=== PATIENT | male | born 1940 | race Caucasian/White ===

== ENCOUNTER 2016-05-19 08:02 | Observation (INO) ==
[2016-05-19] MEDS ORDERED: ONDANSETRON 4 MG/2 ML VIAL IV ONE (09:18)
[2016-05-19 10:34] LABS: Basophils # (Auto) 0 K/mcL (0.0-0.3); Basophils % (Auto) 0.2 % (0.0-2.0); Eosinophils # (Auto) 0 K/mcL (0.0-0.7); Eosinophils % (Auto) 0.8 % (0.0-7.0); Granulocytes % (Auto) 75.6 % (38.0-78.0); Lymphocytes # (Auto) 0.9 K/mcL (1.5-4.8); Lymphocytes % (Auto) 16.8 % (15.5-49.0); Mean Cell Volume 99.4 fL (80.0-100.0); Mean Corpuscular HGB Conc 32.7 g/dL (31.0-36.0); Mean Corpuscular Hemoglobin 32.5 pg (26.0-34.0); Monocytes # (Auto) 0.4 K/mcL (0.1-0.9); Monocytes % (Auto) 6.6 % (1.0-9.0); Platelet Count 230 K/mcL (140-440); RBC 3.97 M/mcL (4.50-5.90); Red Cell Distribution Width 14.7 % (11.5-14.5)
--- NOTE | 2016-05-19 10:35 | XRay Report ---
CLINICAL INFORMATION: Fever TECHNIQUE: Upright AP chest x-ray COMPARISON: 10/22/2014, 07/10/2012, 08/10/2011 FINDINGS: Probable COPD. Mild cardiomegaly. This is unchanged. Probable pulmonary congestion. No pulmonary edema. No focal pulmonary parenchymal infiltrate or mass. Overall appearance is essentially unchanged since 10/22/2014 IMPRESSION: 1. Probable COPD 2. Mild cardiomegaly and probable pulmonary congestion. No pulmonary edema. No focal parenchymal infiltrate Interpreted and Authenticated by: Hilton Mayen 05/19/16
--- NOTE | 2016-05-19 10:38 | XRay Report ---
CLINICAL INFORMATION: Abdominal pain. Fever. TECHNIQUE: AP supine and left lateral decubitus abdomen COMPARISON: Previous CT scan dated 12/14/2009 FINDINGS: Gas and fecal material throughout the colon. There is small bowel gas but no significant dilatation. No air-fluid levels. No pneumoperitoneum. No biliary or portal venous gas There are rounded calcifications in the left upper abdominal quadrant. These may be vascular. Appearance is somewhat atypical for renal calculi. IMPRESSION: Negative bowel gas pattern. No evidence for mechanical small bowel obstruction. Interpreted and Authenticated by: Hilton Mayen 05/19/16
[2016-05-19 10:53] LABS: Magnesium 1.8 mg/dL (1.6-2.5)
[2016-05-19 11:10] LABS: Appearance,Urine CLEAR; Bacteria,Urine 0 /hpf (0); Bilirubin,Urine NEG (NEG); Color,Urine YELLOW; Glucose,Urine (UA) NEGATIVE (NEG); Leukocyte Esterase,Urine NEG /uL (NEG); Nitrate,Urine NEG (NEG); Protein,Urine NEG (NEG); Specific Gravity,Urine 1.013 (1.000-1.035); Urine Blood NEG mg/dL (<0.03); Urine RBC 3 /hpf (0-1); Urine Squamous Epithelial Cell 0 /hpf (0-4); Urine WBC 1 /hpf (0-4)
--- NOTE | 2016-05-19 11:27 | Emergency Department Note ---
Weakness HPI - General Chief complaint: Weakness Stated complaint: WEAKNESS Time Seen by Provider: 05/19/16 08:25 Source: patient Mode of arrival: EMS Limitations: no limitations - History of Present Illness HPI Narrative: 76-year-old male was seen yesterday by Dr. Caba for nausea vomiting and sent home with Madelyn. He returns today with a temperature 101 by EMS. He reports he did not get the flu shot because he is allergic to it. Denies shortness of breath. He also reports significant weakness in his legs unclear cause such that he is not able to bear weight while normally he can walk. he can move his legs he just says they won't support him - Related Data Home Medications Medication Instructions Recorded Confirmed acetaminophen 325 mg tablet 650 mg PO HS tab 09/24/14 05/19/16 Aspirin [Pepe Chewable Aspirin] 81 mg PO QDAY 10/20/14 05/19/16 pantoprazole 40 mg tablet,delayed 40 mg PO QAM 01/28/15 05/19/16 release docusate sodium 100 mg capsule 100 mg PO Q48 cap 01/19/16 05/19/16 ferrous sulfate 325 mg (65 mg 325 mg PO QDAY 01/19/16 05/19/16 iron) tablet multivitamin tablet 1 tab-cap PO QDAY 01/19/16 05/19/16 Acetaminophen [Tylenol] 1 - 2 tab PO Q6HP PRN 05/19/16 05/19/16 guaiFENesin/DEXTROMETHORPHAN 7.5 ml PO Q6H PRN 05/19/16 05/19/16 [Guaifenesin-Dm Solution] Previous Rx's Medication Instructions Recorded potassium chloride ER 10 mEq 10 meq PO QDAY #30 cap 11/22/15 capsule,extended release clopidogrel 75 mg tablet 75 mg PO QDAY #90 tab 01/24/16 furosemide 20 mg tablet 10 mg PO QDAY #30 tab 01/26/16 losartan 100 mg tablet 100 mg PO QDAY #90 tab 01/28/16 diphenhydramine 25 mg capsule 50 mg PO QHS #30 cap 02/11/16 prednisone 5 mg tablet 10 mg PO BID 30 Days 02/28/16 hydralazine 10 mg tablet 20 mg PO BID 30 Days 03/17/16 trazodone 50 mg tablet 50 mg PO QHS #30 tab 03/17/16 atenolol 50 mg tablet 50 mg PO BID 30 Days 04/12/16 lorazepam 1 mg tablet 1 mg PO QHS 30 Days 04/12/16 tramadol 50 mg tablet 25 mg PO Q6H PRN #60 tab 04/18/16 Ondansetron HCl [Zofran ODT] 4 mg SL Q4-6HP PRN #14 tablet 05/18/16 Allergies Allergy/AdvReac Type Severity Reaction Status Date / Time Penicillins Allergy Intermediate Hives Verified 05/19/16 15:11 Sulfa (Sulfonamide Allergy Intermediate Rash Verified 05/19/16 15:11 Antibiotics) codeine Allergy Unknown Unknown Verified 05/19/16 15:11 hydrocodone Allergy Unknown Unknown Verified 05/19/16 15:11 ibuprofen Allergy Unknown Unknown Verified 05/19/16 15:11 Review of Systems All systems ED: reviewed and negative except as stated. Past Medical History - Past Medical History Attestation: Yes: The following information was validated with the patient. Medical history: Reports: cancer (bladder), CVA, GERD, hypertension, other ( recurrent UTIs, prostate issues, incontinence/retention. hyponatremia. Peripheral vascular disease) Surgical history ED: Reports: vasectomy, other (TURP, bladder) - Social History smoking status: Never smoker Alcohol use: Reports: None Drug use: Reports: none Physical Exam Normocephalic atraumatic. Significant gross hearing loss. Conjunctiva clear sclerae anicteric. No nasal discharge or congestion. Oropharynx is pink and moist. Neck is supple without lymphadenopathy or thyromegaly. Heart is regular rate and rhythm no murmurs appreciated. Lungs are clear to auscultation bilaterally. No respiratory distress. Abdomen is soft nontender nondistended. Bilateral backs of hands with purpura. His left willard area has a small wound it's bandaged. This is chronic. +1 edema to the right ankle, again chronic. +2 radial pulse. - General Limitations: no limitations Course Vital Signs Temperature 99.3 F 05/19/16 08:03 Pulse Rate 89 05/19/16 08:03 Respiratory Rate 18 05/19/16 08:03 Blood Pressure 127/76 05/19/16 08:03 Pulse Oximetry (%) 95 05/19/16 08:03 Temperature 97.4 F L 05/19/16 16:03 Pulse Rate 86 05/19/16 16:03 Respiratory Rate 20 05/19/16 16:03 Blood Pressure 157/94 05/19/16 16:03 Pulse Oximetry (%) 92 05/19/16 14:26 Weakness - Lab Data Lab results reviewed: Yes I reviewed the patient's lab results. Result diagrams: 05/19/16 09:27 Lab Results 05/19/16 05/19/16 05/19/16 Range/Units 09:27 09:27 10:11 WBC 5.6 (4.5-11.0) K/mcL RBC 3.97 L (4.50-5.90) M/mcL Hgb 12.9 L (13.5-16.5) g/dL Hct 39.4 L (41.0-55.0) % POC Hct 42.0 (41.0-55.0) % MCV 99.4 (80.0-100.0) fL MCH 32.5 (26.0-34.0) pg MCHC 32.7 (31.0-36.0) g/dL RDW 14.7 H (11.5-14.5) % Plt Count 230 (140-440) K/mcL MPV 7.4 (7.4-10.4) fL Gran % 75.6 (38.0-78.0) % Lymph % (Auto) 16.8 (15.5-49.0) % [place] % (Auto) 6.6 (1.0-9.0) % Eos % (Auto) 0.8 (0.0-7.0) % Baso % (Auto) 0.2 (0.0-2.0) % Gran # 4.3 (1.8-8.0) K/mcL Lymph # 0.9 L (1.5-4.8) K/mcL [place] # 0.4 (0.1-0.9) K/mcL Eos # 0 (0.0-0.7) K/mcL Baso # 0 (0.0-0.3) K/mcL ESR (0-15) mm/hr VBG Lactic Acid 0.5 (0.5-2.2) mmol/L POC Sodium 132 L (133-145) mmol/L POC Potassium 3.6 (3.3-5.1) mmol/L POC Chloride 91 L (96-108) mmol/L POC Total CO2 28 (22-30) mmol/L POC BUN 25 H (8-23) mg/dl POC Creatinine 1.2 (0.7-1.2) mg/dl POC Glucose 72 (70-105) mg/dL POC WB Ioniz Calcium 1.07 L (1.16-1.32) mmol/L Magnesium 1.8 (1.6-2.5) mg/dL C-Reactive Protein (0.0-0.8) mg/dl NT-Pro-B Natriuret Pep 3791.0 H (0-450) pg/ml Urine Color Urine Appearance Urine pH (5.0-9.0) Ur Specific [place] (1.000-1.035) Urine Protein (NEG) mg/dL Urine Glucose (UA) (NEG) mg/dL Urine Ketones (NEG) mg/dL Urine Occult Blood (<0.03) mg/dL Urine Nitrate (NEG) Urine Bilirubin (NEG) mg/dL Urine Urobilinogen (NEG) mg/dL Ur Leukocyte Esterase (NEG) /uL Urine RBC (0-1) /hpf Urine WBC (0-4) /hpf Ur Squamous Epith Cells (0-4) /hpf Urine Bacteria (0) /hpf Ur Culture Indicated? Ur Strep pneumoniae Ag (NEGATIVE) 05/19/16 05/19/16 05/19/16 Range/Units 10:11 10:11 10:11 WBC (4.5-11.0) K/mcL RBC (4.50-5.90) M/mcL Hgb (13.5-16.5) g/dL Hct (41.0-55.0) % POC Hct (41.0-55.0) % MCV (80.0-100.0) fL MCH (26.0-34.0) pg MCHC (31.0-36.0) g/dL RDW (11.5-14.5) % Plt Count (140-440) K/mcL MPV (7.4-10.4) fL Gran % (38.0-78.0) % Lymph % (Auto) (15.5-49.0) % [place] % (Auto) (1.0-9.0) % Eos % (Auto) (0.0-7.0) % Baso % (Auto) (0.0-2.0) % Gran # (1.8-8.0) K/mcL Lymph # (1.5-4.8) K/mcL [place] # (0.1-0.9) K/mcL Eos # (0.0-0.7) K/mcL Baso # (0.0-0.3) K/mcL ESR 13 (0-15) mm/hr VBG Lactic Acid (0.5-2.2) mmol/L POC Sodium (133-145) mmol/L POC Potassium (3.3-5.1) mmol/L POC Chloride (96-108) mmol/L POC Total CO2 (22-30) mmol/L POC BUN (8-23) mg/dl POC Creatinine (0.7-1.2) mg/dl POC Glucose (70-105) mg/dL POC WB Ioniz Calcium (1.16-1.32) mmol/L Magnesium (1.6-2.5) mg/dL C-Reactive Protein 7.8 H (0.0-0.8) mg/dl NT-Pro-B Natriuret Pep (0-450) pg/ml Urine Color Urine Appearance Urine pH (5.0-9.0) Ur Specific [place] (1.000-1.035) Urine Protein (NEG) mg/dL Urine Glucose (UA) (NEG) mg/dL Urine Ketones (NEG) mg/dL Urine Occult Blood (<0.03) mg/dL Urine Nitrate (NEG) Urine Bilirubin (NEG) mg/dL Urine Urobilinogen (NEG) mg/dL Ur Leukocyte Esterase (NEG) /uL Urine RBC (0-1) /hpf Urine WBC (0-4) /hpf Ur Squamous Epith Cells (0-4) /hpf Urine Bacteria (0) /hpf Ur Culture Indicated? Ur Strep pneumoniae Ag Negative (NEGATIVE) 05/19/16 Range/Units 10:27 WBC (4.5-11.0) K/mcL RBC (4.50-5.90) M/mcL Hgb (13.5-16.5) g/dL Hct (41.0-55.0) % POC Hct (41.0-55.0) % MCV (80.0-100.0) fL MCH (26.0-34.0) pg MCHC (31.0-36.0) g/dL RDW (11.5-14.5) % Plt Count (140-440) K/mcL MPV (7.4-10.4) fL Gran % (38.0-78.0) % Lymph % (Auto) (15.5-49.0) % [place] % (Auto) (1.0-9.0) % Eos % (Auto) (0.0-7.0) % Baso % (Auto) (0.0-2.0) % Gran # (1.8-8.0) K/mcL Lymph # (1.5-4.8) K/mcL [place] # (0.1-0.9) K/mcL Eos # (0.0-0.7) K/mcL Baso # (0.0-0.3) K/mcL ESR (0-15) mm/hr VBG Lactic Acid (0.5-2.2) mmol/L POC Sodium (133-145) mmol/L POC Potassium (3.3-5.1) mmol/L POC Chloride (96-108) mmol/L POC Total CO2 (22-30) mmol/L POC BUN (8-23) mg/dl POC Creatinine (0.7-1.2) mg/dl POC Glucose (70-105) mg/dL POC WB Ioniz Calcium (1.16-1.32) mmol/L Magnesium (1.6-2.5) mg/dL C-Reactive Protein (0.0-0.8) mg/dl NT-Pro-B Natriuret Pep (0-450) pg/ml Urine Color Yellow Urine Appearance Clear Urine pH 6.0 (5.0-9.0) Ur Specific [place] 1.013 (1.000-1.035) Urine Protein Neg (NEG) mg/dL Urine Glucose (UA) Negative (NEG) mg/dL Urine Ketones Neg (NEG) mg/dL Urine Occult Blood Neg (<0.03) mg/dL Urine Nitrate Neg (NEG) Urine Bilirubin Neg (NEG) mg/dL Urine Urobilinogen 2.0 A (NEG) mg/dL Ur Leukocyte Esterase Neg (NEG) /uL Urine RBC 3 H (0-1) /hpf Urine WBC 1 (0-4) /hpf Ur Squamous Epith Cells 0 (0-4) /hpf Urine Bacteria 0 (0) /hpf Ur Culture Indicated? No Ur Strep pneumoniae Ag (NEGATIVE) negative influenza swab - Radiology Data Radiology results reviewed: Yes I reviewed the patient's radiology results. Chest x-ray shows no change when compared to 10/22/2014- no infiltrate, mild pulmonary vascular congestion abdominal x-ray shows no free air in the diaphragm nor mechanical bowel obstruction - EKG Data EKG attestation: Yes I reviewed and interpreted this EKG. EKG results narrative: EKG shows normal sinus rhythm with a rate of 88 with PACs. He does have increased ST depression versus repolarization in the anterior lateral leads V4 through 6. Compared this to his last EKG on 10/17/2014 Disposition Clinical Impression: Fever, unknown origin, Weakness Summary: Patient has fever of unknown source and significant lower extremity weakness. Discussed case with Dr. Velasquez who agreed to accept the patient for further workup and treatment Disposition: Xfer As Inpt ([facility]) Condition: Fair
[2016-05-19] MEDS ORDERED: FUROSEMIDE 20 MG/2 ML VIAL IV ONE (12:36)
[2016-05-19] MEDS ORDERED: ACETAMINOPHEN 325 MG TABLET PO PRN ×2 (14:19→18:10)
[2016-05-19] MEDS ORDERED: guaiFENesin/CODEINE 10 ML UDC PO PRN (14:19)
[2016-05-19] MEDS ORDERED: ONDANSETRON 4 MG/2 ML VIAL IV PRN (14:19)
[2016-05-19] MEDS ORDERED: cefTRIAXone 2 GM in DEXTROSE 5% IN WATER 50 ML IV SCH (14:19)
[2016-05-19] MEDS ORDERED: VANCOMYCIN PER PHARMACY IV ONE (14:53)
[2016-05-19] MEDS ORDERED: LEVOFLOXACIN 750 MG/150 ML BAG IV SCH (15:00)
--- NOTE | 2016-05-19 15:35 | History and Physical Report ---
DATE OF ADMISSION: 05/19/2016 PRIMARY CARE PHYSICIAN: Flako Mcrae PA-C. REASON FOR ADMISSION: Weakness, fever, bilateral lower extremity numbness. HISTORY OF CHIEF COMPLAINT: The patient is a 76-year-old with known history of coronary artery disease, severe peripheral vascular disease, along with history of CVA and bladder cancer who comes to [facility] Emergency Room with progressive onset of weakness and inability to function. The patient lives at [facility]. He was in his baseline state of health until roughly a week ago following which he has noticed gradual lower extremity weakness, inability to walk and over the last couple of days is barely able to lift his leg. He also had a fever of 101 when EMS was called and subsequently brought him to [facility] ER. In the ER recorded highest temperature was 99.3. Initial workup was negative with a white count of 5.6. However, in light of lower extremity weakness, Hospitalist Service was consulted. At the time of examination, the patient is alert, was able to answer some of the questions. He is very hard of hearing. He is intermittently confused, but he denies chest pain, lightheadedness, or photophobia. He further denies joint pain, rash, dysuria, diarrhea, bloody stool, weight loss or change in stool caliber, unilateral weakness, or incontinence. REVIEW OF SYSTEMS: Ten-point review of system was performed and negative except the ones discussed above. PAST MEDICAL HISTORY: 1. History of coronary artery disease. 2. Hypertension. 3. Chronic venous ulceration and stasis changes. 4. Anxiety. 5. Gout. 6. Peripheral vascular disease. 7. History of bladder cancer managed by Urology. 8. GERD. 9. History of migraine. 10. CVA. 11. Reactive airway disease. CURRENT MEDICATIONS: 1. Tramadol 50 mg. 2. Lorazepam 1 mg. 3. Atenolol 50 mg b.i.d. 4. Trazodone 50 mg at bedtime. 5. Hydralazine 20 mg b.i.d. 6. Prednisone 10 mg b.i.d. 7. Diphenhydramine 50 mg at bedtime. 8. Losartan 100 mg daily. 9. Furosemide 10 mg. 10. Plavix 75 mg. 11. Multivitamin one tab daily. 12. Protonix 40 mg. 13. Aspirin 81 mg. ALLERGIES: 1. CODEINE. 2. HYDROCODONE. 3. IBUPROFEN. 4. PENICILLIN. 5. SULFA. FAMILY HISTORY: Significant for history of father with coronary artery disease and mother with hypertension. SOCIAL HISTORY: The patient is . He currently lives at [facility]. He used to drink a fair amount of alcohol in the past but quit. He carries a [id number] history of smoking, quit a while ago. PHYSICAL EXAMINATION: GENERAL: The patient is minimally anxious, hard of hearing. BMI 20, height 5 feet 11 inches. VITAL SIGNS: Blood pressure is 148/79, respiration rate 20, temperature 99.3, pulse 91, sats 92% on room air. HEENT: Pupils symmetric. Oral cavity is dry. No ear or nose discharge. Head is normocephalic and atraumatic. NECK: No lymphadenopathy. CHEST: S1, S2, regular rhythm. Ejection systolic murmur grade 1. Diminished breath sounds at bases. ABDOMEN: Scaphoid. LOWER EXTREMITIES: Bilateral stasis changes with excoriated skin lesions along with left dorsal skin ulceration. Minimal lymphedema, right lower extremity. No cyanosis, no clubbing. Neuropathic changes. PSYCH: No anxiety, hard of hearing, occasionally confused. NEURO: Unable to lift both lower extremities with grade 3 strength. No diplopia. Upper extremity strength symmetric. Reflexes are absent left knee, 2+ brisk right knee. LABS AND IMAGING: White count 5.6, hemoglobin 12.9, platelets 230, lactic acid 0.5. Sodium 132, potassium 3.6, creatinine 1.2, and BUN 25. BNP 3791. X-ray chest: Pulmonary congestion, mild CHF. ASSESSMENT AND PLAN: A 76-year-old with a history of chronic peripheral vascular disease, stasis dermatitis who is admitted with fever, lower extremity weakness, minimal back pain along with mild CHF. 1. Mild CHF. Echocardiogram. Start diuresis. Continue telemonitoring. 2. Fever, unclear etiology. Drew cultures pending. Lower back imaging to rule out infectious etiology along with vertebral/epidural abscess which may be leading to lower extremity weakness. Start empiric antibiotics including vancomycin/Levaquin in light of PENICILLIN allergy. Await ESR and inflammatory markers. 3. Mental status change, likely secondary to fever. Continue close monitoring. Avoid sedatives, hypnotics. 4. Prior medical issues, including: a. History of coronary artery disease/PVD. Continue aspirin, Plavix. b. Hypertension. Continue losartan/atenolol. c. GERD. Continue PPI. PLAN FOR TODAY: 1. Admit as inpatient. 2. Diuresis. 3. Echocardiogram. 4. Lower back imaging. 5. Drew cultures. 6. Antibiotic coverage. AA:[email or web address] Job ID: [id number] Doc ID: [id number] Hakan Mcrae PA-C
[2016-05-19 15:39] LABS: Strep Pneumoniae Antigen - UR NEGATIVE (NEGATIVE)
[2016-05-19] MEDS: 0.9 % SODIUM CHLORIDE 10 ML SYRINGE IV SCH ×2 (15:39→22:05)
[2016-05-19] MEDS: IPRATROPIUM/ALBUTEROL 3 ML AMPUL.NEB NEB SCH ×3 (17:44→22:28)
--- NOTE | 2016-05-19 18:06 | Magnetic Resonance Report ---
CLINICAL INFORMATION: Paraparesis TECHNIQUE: Sagittal and axial images through the lumbar spine. Scanning performed both before and after intravenous injection of 7.5 mL gadolinium COMPARISON: Previous CT scan dated 10/17/2014 FINDINGS: Compression deformity of the L1 vertebral body. There is wedging with approximately 70% loss of height anteriorly. No significant bone marrow edema. No pathologic marrow replacement. Appearance is consistent with a benign, chronic compression deformity. No significant retropulsion. No spinal canal stenosis. Other lumbar vertebral body heights are maintained. Normal marrow signal. No pathologic bone marrow replacement. Mild decreased intradiscal signal at L1-L2 and L2-L3. No focal herniation. No spinal canal stenosis. Mild degenerative disc disease at L3-L4. There is decreased intradiscal signal. There is a bulging disc without well-defined focal herniation. There is facet arthropathy with mild osseous and ligamentous hypertrophy. There is moderate spinal canal stenosis. There is bilateral L3 foraminal stenosis. Degenerative disc disease at L4-L5. There is a midline and left paramidline central protrusion with mild caudal migration of disc material. Disc material contacts the left L5 nerve root within the lateral recess. No significant spinal canal or foraminal stenosis. Degenerative disc disease at L5-S1. There is a broad-based shallow protrusion extending from the central disc to the left L5 foramen. This contacts the exiting left L5 nerve root and dorsal root ganglion. No epidural abnormalities. No enhancing lesions. No epidural hematoma or abscess. Conus medullaris and cauda equina are normal. Sacrum is negative. No fracture. No paraspinal soft tissue abnormality. IMPRESSION: 1. Chronic benign compression deformity of the L1 vertebral body. 2. Mild degenerative disc disease at L3-L4. Bulging disc and moderate spinal canal stenosis. 3. Degenerative disc disease at L4-L5. Midline and left paramidline central disc protrusion as above. 4. Broad-based shallow left-sided protrusion at L5-S1 5. Conus medullaris and cauda equina are normal. No epidural abnormalities. Interpreted and Authenticated by: Hilton Mayen 05/19/16
[2016-05-19] MEDS ORDERED: traMADol 50 MG TABLET PO PRN (18:10)
[2016-05-19] MEDS ORDERED: ONDANSETRON ODT 4 MG TABLET SL PRN (18:10)
[2016-05-19] MEDS: VANCOMYCIN 1,000 MG in 0.9 % SODIUM CHLORIDE 250 ML IV SCH (19:58)
[2016-05-19 20:32] LABS: Basophils # (Auto) 0 K/mcL (0.0-0.3); Basophils % (Auto) 0.5 % (0.0-2.0); Eosinophils # (Auto) 0 K/mcL (0.0-0.7); Eosinophils % (Auto) 0.6 % (0.0-7.0); Granulocytes % (Auto) 83.8 % (38.0-78.0); Lymphocytes # (Auto) 0.4 K/mcL (1.5-4.8); Lymphocytes % (Auto) 6.5 % (15.5-49.0); Mean Cell Volume 98.3 fL (80.0-100.0); Mean Corpuscular HGB Conc 33.9 g/dL (31.0-36.0); Mean Corpuscular Hemoglobin 33.3 pg (26.0-34.0); Monocytes # (Auto) 0.5 K/mcL (0.1-0.9); Monocytes % (Auto) 8.6 % (1.0-9.0); Platelet Count 213 K/mcL (140-440); RBC 3.73 M/mcL (4.50-5.90); Red Cell Distribution Width 13.8 % (11.5-14.5)
[2016-05-19] MEDS: hydrALAZINE 10 MG TABLET PO SCH (20:38)
[2016-05-19] MEDS: diphenhydrAMINE 25 MG CAPSULE PO SCH (20:39)
[2016-05-19] MEDS: SENNOSIDES/DOCUSATE SODIUM 1 TAB TABLET PO SCH (20:39)
[2016-05-19] MEDS: ATENOLOL 50 MG TABLET PO SCH (20:39)
[2016-05-19] MEDS: HEPARIN 5,000 UNIT/ML VIAL SQ SCH (20:40)
[2016-05-19] MEDS: DOCUSATE SODIUM 100 MG CAPSULE PO SCH (20:40)
[2016-05-19] MEDS: traZODone HCL 50 MG TABLET PO SCH (20:40)
[2016-05-19] MEDS: LORazepam 1 MG TABLET PO SCH (20:40)
[2016-05-19 20:52] LABS: ALT/SGPT 14 U/l (0-40); Albumin 2.9 gm/dL (3.2-5.2); Albumin/Globulin Ratio 1.7 (1.0-2.3); Alkaline Phosphatase 65 U/L (39-117); Bilirubin,Direct 0.2 mg/dL (0.0-0.3); Blood Urea Nitrogen 22 mg/dl (8-23); Gamma Glutamyl Transpeptidase 27 U/L (8-61); Magnesium 1.5 mg/dL (1.6-2.5)
[2016-05-19] MEDS ORDERED: traZODone HCL 50 MG TABLET PO PRN (21:00)
[2016-05-20] MEDS: IPRATROPIUM/ALBUTEROL 3 ML AMPUL.NEB NEB SCH ×6 (02:51→22:45)
[2016-05-20] MEDS: 0.9 % SODIUM CHLORIDE 10 ML SYRINGE IV SCH ×3 (05:43→22:01)
[2016-05-20 06:01] LABS: ALT/SGPT 14 U/l (0-40); Albumin 2.7 gm/dL (3.2-5.2); Albumin/Globulin Ratio 1.4 (1.0-2.3); Alkaline Phosphatase 61 U/L (39-117); Bilirubin,Direct < 0.2 mg/dL (0.0-0.3); Blood Urea Nitrogen 21 mg/dl (8-23); Gamma Glutamyl Transpeptidase 27 U/L (8-61); Magnesium 1.6 mg/dL (1.6-2.5); Phosphorous 2.9 mg/dL (2.7-4.5); Uric Acid 6.1 mg/dL (2.5-8.0)
[2016-05-20 06:26] LABS: Mean Corpuscular HGB Conc 34.6 g/dL (31.0-36.0); Mean Corpuscular Hemoglobin 33.9 pg (26.0-34.0); Platelet Count 197 K/mcL (140-440); RBC 3.39 M/mcL (4.50-5.90); Red Cell Distribution Width 13.9 % (11.5-14.5)
[2016-05-20] MEDS: PANTOPRAZOLE 40 MG TABLET PO SCH (06:58)
[2016-05-20] MEDS: CALCIUM CARBONATE 500 MG TAB.CHEW CHEWED SCH ×2 (07:46→12:41)
[2016-05-20] MEDS: LOSARTAN 50 MG TABLET PO SCH (08:50)
[2016-05-20] MEDS: predniSONE 10 MG TABLET PO SCH ×2 (08:50→18:14)
[2016-05-20] MEDS: POTASSIUM CHLORIDE 10 MEQ TABLET PO SCH (08:50)
[2016-05-20] MEDS: CLOPIDOGREL 75 MG TABLET PO SCH (08:50)
[2016-05-20] MEDS: MULTIVIT,THER IRON,CA,FA & MIN 1 TABLET PO SCH ×2 (08:50→08:52)
[2016-05-20] MEDS: HEPARIN 5,000 UNIT/ML VIAL SQ SCH ×2 (08:50→20:41)
[2016-05-20] MEDS: DOCUSATE SODIUM 100 MG CAPSULE PO SCH ×2 (08:51→20:42)
[2016-05-20] MEDS: FERROUS SULFATE 325 MG TABLET PO SCH (08:51)
[2016-05-20] MEDS: hydrALAZINE 10 MG TABLET PO SCH ×2 (08:51→20:41)
[2016-05-20] MEDS: ATENOLOL 50 MG TABLET PO SCH ×2 (08:51→20:42)
[2016-05-20] MEDS: VANCOMYCIN 1,000 MG in 0.9 % SODIUM CHLORIDE 250 ML IV SCH (08:51)
[2016-05-20] MEDS: ASPIRIN 81 MG TAB.CHEW PO SCH (08:51)
[2016-05-20] MEDS ORDERED: FUROSEMIDE 20 MG TABLET PO SCH (09:00)
[2016-05-20 09:15] LABS: Band Neutrophils % 4 % (0-10); Lymphocytes % 11 % (15-49); Monocytes % (Manual) 6 % (1-9); Platelet Estimate NORMAL (NORMAL); RBC Morphology NORMAL (NORMAL); Segmented Neutrophils % 79 % (38-78)
[2016-05-20] MEDS ORDERED: VANCOMYCIN PER PHARMACY IV SCH (11:45)
--- NOTE | 2016-05-20 13:08 | Echocardiogram Report ---
ECHOCARDIOGRAM: 2-D and M-mode echocardiography with cardiac Doppler and color flow imaging were performed with a FanGager (MyBrandz)a Aplio MX. INDICATION: Congestive heart failure. Overall size of the diagnostic mode tracing of the LV could not be obtained. Overall size of the cardiac chambers and aortic root appeared normal as did LV wall thickness. Systolic performance appeared vigorous. Estimated ejection fraction is 70 percent. The aortic valve appeared trileaflet and normal. There was no evidence for aortic stenosis by Doppler interrogation. The aortic regurgitation, probably mild (1+), was noted. The mitral and tricuspid valves appear unremarkable. Doppler interrogation of LV inflow disclosed normal early diastolic deceleration time and slight \\"A\\" wave dominance. No more than trivial mitral regurgitation was noted. Pulmonary venous interrogation disclosed normal \\"S\\" wave dominance. The pulmonic valve was not visualized. Pulmonary artery acceleration time was difficult to measure. There was no evidence for pulmonic stenosis or pulmonic regurgitation. Tricuspid regurgitation, probably mild (1+), was noted. There was no evidence for pericardial effusion. The IVC was of normal diameter and showed normal respiratory aeration. Calculated estimate of PA systolic pressure is normal at 30 mmHg. Sinus rhythm with wandering atrial pacemaker was present. CONCLUSION: Aortic regurgitation, probably mild (1+). No other abnormalities noted. (See accompanying M-mode and Doppler reports for quantitation.) ECHOCARDIOGRAPHY M-MODE CALCULATIONS: HT: 71 inches WT: 146 BSA: 1.84 NORMALS AORTA: AORTIC ROOT 3.1 2.0-3.7 cm LEFT ATRIUM 3.9 1.9-4.0 cm MITRAL VALVE: EXCURSION 1.6 1.9-2.7 cm EPSS 0.2 <0.5 cm LT VENTRICLE: LVID (ED) -- 3.5-5.7 cm LVID (ES) -- SEPTAL THICKNESS -- 0.6-1.1 cm SEPTAL EXCURSION -- 0.3-0.8 cm LVPW THICKNESS -- 0.6-1.1 cm LVPW EXCURSION -- 0.9-1.4 cm MINOR AXIS FS -- 25%-40% RT VENTRICLE: RVID (ED) -- 0.9-2.6 cm(up to 3cm if LLD) QUALITATIVE DOPPLER FLOW STUDIES MITRAL VALVE MR, probably trivial AORTIC VALVE AR, probably mild, (1+) TRICUSPID VALVE TR, probably mild (1+) PULMONIC VALVE -- QUANTITATIVE DOPPLER FLOW STUDIES SAMPLE SITES VELOCITIES PEAK PRESSURE VALVE AREA and/or VALVE WINDOW (PEAK,M/SEC) DROP (GRADIENT) PRESSURE HALF-TIME MV (Diastole) 1.0 (E) 1.1 (A) -- -- MV (Systole) 4.0 -- -- AO (Diastole) 5.0 -- 640 msec AO (Systole) 1.1 -- -- TV (Systole) 2.5 -- -- PV (Systole) 0.4 -- -- PV (Diastole) -- LWG:brittanie Job ID: [id number] Doc ID: [id number] Jaiden Lopez MD
--- NOTE | 2016-05-20 15:41 | Cat Scan Report ---
CLINICAL INFORMATION: Paraplegia COMPARISON: None. TECHNIQUE: Axial noncontrast-enhanced images through the brain. FINDINGS: No acute intra-axial hemorrhage. There is severe atrophy with ventriculomegaly. There are multiple areas of superficial brain substance loss. No acute focal intra-axial lesion. No localized mass effect or midline shift. There is white matter abnormality consistent with microvascular ischemic change. The atria of the lateral ventricles are markedly enlarged, especially on the left. Brainstem and cerebellum are negative. No acute extra-axial, intracranial abnormality. No subdural hematoma. No subarachnoid hemorrhage. Basilar cisterns are open and normal. No calvarial lesion. Skull base is negative. IMPRESSION: 1. Multi focal superficial and deep brain substance loss. Ventricles are enlarged, especially the atria of the lateral ventricles 2. No acute intracranial hemorrhage. No localized mass effect. No acute abnormality. Interpreted and Authenticated by: Hilton Mayen 05/20/16
--- NOTE | 2016-05-20 17:26 | Internal Med Progress Note ---
Medical - PN: Subj Patient information: Note initiated : 05/20/16 at 5:24 pm Service Date, if different from initiated Date: [] Patient: Manas Nuñez 76 y/o M admitted on 05/19/16 for WEAKNESS. Chief Complaint: [] Interval history: The patient seen examined, overnight events noted The patient has been having epigastric burning pain and wanting tums, he is on ppi but would still prefer tums he was seen in presence of his family and POA today, he is hard of hearing, but denies any acute issues the main issue he notes is the weakness in both his lower extremities, he also had a low grade temp when he was brought in by the EMS His Lumbar MRI was negative for any abscess. He is on IV fluids and IV vancomycin and levaquin for broad spectrum coverage. The patients CT head was suggestive of significant ventriculomegaly, out of propotion with his age. Microbiology, blood cultures are neg at 24 hrs, The patient had presented to the ER before with nausea and vomiting, X ray of the abdomen was negative. At baseline the patient is able to walk with the aid of walker for short distances but usually is in a wheel chair. Pertinent ROS: Denies headache, dizziness Denies chest pain, palpitations Denies cough or shortness of breath Denies abdominal pain, nausea or vomiting. Yariel lower extremity weakness. - Constitutional Vitals: Vital Signs Temp Pulse Resp BP Pulse Ox 97.7 F 99 H 18 143/79 91 05/20/16 16:36 05/20/16 16:36 05/20/16 16:36 05/20/16 16:36 05/20/16 16:36 Period Temp Pulse Resp BP Sys/Alvarado Pulse Ox Last 24 Hr 97.7 F-99 F 86-151 12-22 112-170/78-100 90-94 Intake and Output 05/20/16 05/20/16 05/20/16 05:59 13:59 21:59 Intake Total 1200 / 1200 1500 / 1500 460 / 460 Output Total 301 / 301 400 / 400 175 / 175 Balance 899 / 899 1100 / 1100 285 / 285 Weight 140 lb Patient Weight 05/21/16 05:59 Weight 140 lb Intake & Output: Intake & Output 05/20/16 05/20/16 05/20/16 05:59 13:59 21:59 Intake Total 1200 / 1200 1500 / 1500 460 / 460 Output Total 301 / 301 400 / 400 175 / 175 Balance 899 / 899 1100 / 1100 285 / 285 Weight 140 lb Intake: Oral 1200 / 1200 1500 / 1500 460 / 460 Output: Void Amount 300 / 300 400 / 400 175 / 175 # of times incontinent of urine Other: Meal Breakfast Lunch Percent of Meal Consumed Refused 50% Medical - PN: Obj Da - Labs CBC & Chem 7: 05/20/16 04:30 05/20/16 04:30 Labs: Abnormal Lab Results 05/20/16 05/20/16 05/19/16 04:30 04:30 19:56 RBC 3.39 L Hgb 11.5 L Hct 33.3 L MPV Gran % Lymph % (Auto) Lymph # Seg Neutrophils % 79 H Lymphocytes % 11 L Sodium 129 L 131 L Chloride 90 L 88 L Anion Gap 19.0 H Creatinine 1.3 H 1.3 H Calcium 8.2 L 8.0 L Phosphorus 2.0 L Magnesium 1.5 L Total Protein 4.6 L 4.6 L Albumin 2.7 L 2.9 L Globulin 1.9 L 1.7 L 05/19/16 19:56 RBC 3.73 L Hgb 12.4 L Hct 36.7 L MPV 7.3 L Gran % 83.8 H Lymph % (Auto) 6.5 L Lymph # 0.4 L Seg Neutrophils % Lymphocytes % Sodium Chloride Anion Gap Creatinine Calcium Phosphorus Magnesium Total Protein Albumin Globulin Meds: Medications Acetaminophen (Tylenol) 650 mg PO Q4-6HP PRN PRN Reason: PAIN/FEVER > 101 Last Admin: 05/19/16 18:19 Dose: 650 mg Albuterol/Ipratropium (Duoneb) 3 ml NEB Q4HRT [facility] Last Admin: 05/20/16 15:13 Dose: 3 ml Aspirin (Aspirin) 81 mg PO QDAY [facility] Last Admin: 05/20/16 08:51 Dose: 81 mg Atenolol (Tenormin) 50 mg PO BID [facility] Last Admin: 05/20/16 08:51 Dose: 50 mg Calcium Carbonate/Glycine (Tums) 1,000 mg CHEWED Q8HP PRN PRN Reason: Dyspepsia Clopidogrel Bisulfate (Plavix) 75 mg PO QDAY [facility] Last Admin: 05/20/16 08:50 Dose: 75 mg Diphenhydramine HCl (Benadryl) 50 mg PO QHS [facility] Last Admin: 05/19/16 20:39 Dose: 50 mg Docusate Sodium (Colace) 100 mg PO BID [facility] Last Admin: 05/20/16 08:51 Dose: 100 mg Ferrous Sulfate ([facility]ous Sulfate) [facility] Last Admin: 05/20/16 08:51 Dose: 325 mg Heparin Sodium (Porcine) (Heparin) 5,000 unit SQ Q12 [facility] Last Admin: 05/20/16 08:50 Dose: 5,000 unit Hydralazine HCl (Apresoline) 20 mg PO BID [facility] Last Admin: 05/20/16 08:51 Dose: 20 mg Levofloxacin (Levaquin) 750 mg in 150 mls @ 100 mls/hr IV Q48H [facility] Last Infusion: 05/19/16 19:05 Dose: Infused Vancomycin HCl 1,000 mg/ (Sodium Chloride) 250 mls @ 250 mls/hr IV DAILY [facility] Last Admin: 05/20/16 08:51 Dose: 250 mls/hr Iron Carb/Multivit/Piano Case Maker/Folic Acid (Multivitamin W/Minerals) 1 tab PO DAILY [facility] Last Admin: 05/20/16 08:50 Dose: 1 tab Iron Carb/Multivit/Fannin/Folic Acid (Multivitamin W/Minerals) 1 tab PO DAILY [facility] Last Admin: 05/20/16 08:52 Dose: Not Given Lorazepam (Ativan) 1 mg PO [facility] Last Admin: 05/19/16 20:40 Dose: 1 mg Losartan Potassium (Cozaar) 100 mg PO DAILY [facility] Last Admin: 05/20/16 08:50 Dose: 100 mg Ondansetron HCl (Zofran) 4 mg IV Q4-6HP PRN PRN Reason: Nausea And Vomiting Last Admin: 05/19/16 23:33 Dose: 4 mg Ondansetron HCl (Zofran Odt) 4 mg SL Q4-6HP PRN PRN Reason: Nausea And Vomiting Pantoprazole Sodium (Protonix) 40 mg PO [facility] Last Admin: 05/20/16 06:58 Dose: 40 mg Potassium Chloride (Kdur) 10 meq [facility] Last Admin: 05/20/16 08:50 Dose: 10 meq Prednisone (Pred[facility]) [facility] Last Admin: 05/20/16 08:50 Dose: 10 mg Senna/Docusate Sodium (Senna Plus Tablet) 1 tab PO [facility] Last Admin: 05/19/16 20:39 Dose: 1 tab Sodium Chloride (Saline Flush) 10 ml IV Q8 [facility] Last Admin: 05/20/16 14:34 Dose: 10 ml Tramadol HCl (Ultram) 25 mg PO Q6H PRN PRN Reason: pain Trazodone HCl (Desyrel) 50 mg PO [facility] Last Admin: 05/19/16 20:40 Dose: 50 mg Vancomycin HCl (Vancomycin Per Pharmacy) 1 order IV UD [facility] Medical - PN: A/P - Time Spent With Patient Total time spent is greater than 50% in coordination of care (as documented) at patient's floor/unit and/or counseling patient: (1) Fever, unknown origin Status: Acute Current Visit: Yes (2) Weakness Status: Acute Current Visit: Yes (3) Dehydration Status: Acute Current Visit: No (4) Nausea & vomiting Status: Acute Current Visit: No (5) Hyponatremia Status: Chronic Current Visit: No - Narrative A/P Narrative: The patient presented with nausea and vomiting a few days, and then with weakness in both his lower extremities. MRI LS spine negative of abscess/ acute pathology, CT head shows ventriculomegaly. 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 It may be worth while to consider Nuclear cisternogram/ Neurosurgery evaluation as ouatpient Fever- No recurrece, only documented by the EMS, no obvious source of infection noted. Procalcitonin level is also low. Its likely that the patient has dehydration which lead to his weakness. Likely from poor oral intake and nausea and vomiting which has subsided. Ok to continue with acid suppression Will get Ultrasound of [facility] abdomen to r/o any intra abdominal pathology. Given creat of 1.3, I do not feel that IV contrast from CT Scan would justify a CT, especially give low clinical suspicion as well as low procalcitonin. Will d/c antibiotics if cultures remain negative x 48 hrs. DVT- Heparin Diet as tolerated Will need PT eval Medical - PN: Qual - VTE Deep Vein Thrombosis/Pulmonary Embolism Present on Admission: No
[2016-05-20] MEDS: CALCIUM CARBONATE 500 MG TAB.CHEW CHEWED PRN ×2 (18:14→20:55)
[2016-05-20] MEDS: SENNOSIDES/DOCUSATE SODIUM 1 TAB TABLET PO SCH (20:41)
[2016-05-20] MEDS: LORazepam 1 MG TABLET PO SCH (20:41)
[2016-05-20] MEDS: traZODone HCL 50 MG TABLET PO SCH (20:41)
[2016-05-20] MEDS: diphenhydrAMINE 25 MG CAPSULE PO SCH (20:41)
[2016-05-21] MEDS: IPRATROPIUM/ALBUTEROL 3 ML AMPUL.NEB NEB SCH ×2 (03:44→07:18)
[2016-05-21] MEDS: 0.9 % SODIUM CHLORIDE 10 ML SYRINGE IV SCH ×2 (05:21→13:31)
[2016-05-21 06:44] LABS: Mean Cell Volume 97.9 fL (80.0-100.0); Mean Corpuscular HGB Conc 34.2 g/dL (31.0-36.0); Mean Corpuscular Hemoglobin 33.5 pg (26.0-34.0); Platelet Count 211 K/mcL (140-440); RBC 3.67 M/mcL (4.50-5.90); Red Cell Distribution Width 13.9 % (11.5-14.5)
[2016-05-21 07:14] LABS: ALT/SGPT 21 U/l (0-40); Albumin 2.7 gm/dL (3.2-5.2); Albumin/Globulin Ratio 1.2 (1.0-2.3); Alkaline Phosphatase 71 U/L (39-117); Bilirubin,Direct < 0.2 mg/dL (0.0-0.3); Blood Urea Nitrogen 18 mg/dl (8-23); Gamma Glutamyl Transpeptidase 26 U/L (8-61); Magnesium 1.7 mg/dL (1.6-2.5); Phosphorous 2.7 mg/dL (2.7-4.5); Uric Acid 5.1 mg/dL (2.5-8.0)
[2016-05-21] MEDS: PANTOPRAZOLE 40 MG TABLET PO SCH (07:51)
[2016-05-21] MEDS: POTASSIUM CHLORIDE 10 MEQ TABLET PO SCH (07:51)
[2016-05-21] MEDS: FERROUS SULFATE 325 MG TABLET PO SCH (07:51)
[2016-05-21] MEDS: predniSONE 10 MG TABLET PO SCH (07:51)
[2016-05-21 07:53] LABS: Band Neutrophils % 2 % (0-10); Lymphocytes % 9 % (15-49); Monocytes % (Manual) 7 % (1-9); Platelet Estimate NORMAL (NORMAL); RBC Morphology NORMAL (NORMAL); Segmented Neutrophils % 82 % (38-78)
--- NOTE | 2016-05-21 08:02 | Ultrasound Report ---
CLINICAL INFORMATION: Abdominal pain. Vomiting. TECHNIQUE: Grayscale and color flow spectral imaging COMPARISON: Previous examination dated 06/03/2010. Previous plain film examination dated 05/19/2016 FINDINGS: Suboptimal evaluation. Patient is unable to hold his breath or move. Negative gallbladder. No cholelithiasis. No gallbladder wall thickening. No pericholecystic fluid. No dilated bile ducts. Common bile that measures 4 mm. Liver is negative. Liver is not enlarged. Liver measures 12 cm maximally. Normal homogeneous echotexture. No hepatic mass. Liver contour is smooth. No cirrhosis. No ascites. Normal hepatopedal portal venous flow. Visualized portions of the pancreas are negative. Right kidney measures 9.1 x 4.5 x 5.1 cm. No solid or cystic mass. No hydronephrosis. Left kidney measures 10.4 x 4.6 x 4.8 cm. There is a 2.4 cm septated cyst. No solid mass. No hydronephrosis. Spleen is negative. No focal intrasplenic abnormality Abdominal aorta and inferior vena cava are negative IMPRESSION: Negative abdominal ultrasound. Interpreted and Authenticated by: Hilton Mayen 05/21/16
--- NOTE | 2016-05-21 08:38 | XRay Report ---
CLINICAL INFORMATION: Weakness TECHNIQUE: AP portable semiupright chest x-ray COMPARISON: Previous chest x-rays dated 05/19/2016, 10/22/2014, 07/10/2012 FINDINGS: Bibasilar pulmonary parenchymal infiltrates. No since previous examination. Appearance is consistent with pneumonia. Follow-up radiographs recommended. Overall heart size is within normal limits considering AP positioning. No evidence for congestive heart failure. IMPRESSION: 1. Bibasilar infiltrates consistent with pneumonia 2. Follow-up radiograph recommended. Interpreted and Authenticated by: Hilton Mayen 05/21/16
[2016-05-21] MEDS ORDERED: DOCUSATE SODIUM 100 MG CAPSULE PO SCH (09:00)
[2016-05-21] MEDS: HEPARIN 5,000 UNIT/ML VIAL SQ SCH (09:15)
[2016-05-21] MEDS: CLOPIDOGREL 75 MG TABLET PO SCH (09:16)
[2016-05-21] MEDS: LOSARTAN 50 MG TABLET PO SCH (09:16)
[2016-05-21] MEDS: DOCUSATE SODIUM 100 MG CAPSULE PO SCH (09:16)
[2016-05-21] MEDS: MULTIVIT,THER IRON,CA,FA & MIN 1 TABLET PO SCH ×2 (09:16)
[2016-05-21] MEDS: ATENOLOL 50 MG TABLET PO SCH (09:16)
[2016-05-21] MEDS: ASPIRIN 81 MG TAB.CHEW PO SCH (09:16)
[2016-05-21] MEDS: hydrALAZINE 10 MG TABLET PO SCH (09:16)
[2016-05-21] MEDS: VANCOMYCIN 1,000 MG in 0.9 % SODIUM CHLORIDE 250 ML IV SCH (11:00)
--- NOTE | 2016-05-21 13:23 | Discharge Summary ---
Medical - DS: Prov Patient information: Note initiated : 05/21/16 at 1:20 pm Service Date, if different from initiated Date: [] Patient: Manas Nuñez 76 y/o M admitted on 05/19/16 for WEAKNESS. Chief Complaint: [] Date of admission: 05/19/16 13:35 Discharge date: 05/21/16 Primary care physician: [f_Reg Prim Care Provider] Admitting clinician: Hakan Ching Discharging clinician: [facility] [place] [facility] - DS: Meds - Discharge Medications Prescriptions: Levofloxacin [Levaquin] 500 mg PO DAILY #7 tablet Active and Home Medications: Home Medications Acetaminophen [Tylenol] 1 - 2 tab PO Q6HP PRN 05/19/16 [History Confirmed Last Taken Unknown] guaiFENesin/DEXTROMETHORPHAN [Guaifenesin-Dm Solution] 7.5 ml PO Q6H PRN [History Confirmed 05/19/16 Last Taken Unknown] Active Medications Acetaminophen (Tylenol) 650 mg PO Q4-6HP PRN PRN Reason: PAIN/FEVER > 101 Last Admin: 05/19/16 18:19 Dose: 650 mg Albuterol/Ipratropium (Duoneb) 3 ml NEB Q4HRT [facility] Last Admin: 05/21/16 07:18 Dose: Not Given Aspirin (Aspirin) 81 mg PO QDAY [facility] Last Admin: 05/21/16 09:16 Dose: 81 mg Atenolol (Tenormin) 50 mg PO BID [facility] Last Admin: 05/21/16 09:16 Dose: 50 mg Calcium Carbonate/Glycine (Tums) 1,000 mg CHEWED Q8HP PRN PRN Reason: Dyspepsia Last Admin: 05/20/16 20:55 Dose: 1,000 mg Clopidogrel Bisulfate (Plavix) 75 mg PO QDAY [facility] Last Admin: 05/21/16 09:16 Dose: 75 mg Diphenhydramine HCl (Benadryl) 50 mg PO QHS [facility] Last Admin: 05/20/16 20:41 Dose: 50 mg Docusate Sodium (Colace) 100 mg PO BID [facility] Last Admin: 05/21/16 09:16 Dose: 100 mg Ferrous Sulfate (Ferrous Sulfate) [facility] Last Admin: 05/21/16 07:51 Dose: 325 mg Heparin Sodium (Porcine) (Heparin) 5,000 unit SQ Q12 [facility] Last Admin: 05/21/16 09:15 Dose: 5,000 unit Hydralazine HCl (Apresoline) 20 mg PO BID [facility] Last Admin: 05/21/16 09:16 Dose: 20 mg Levofloxacin (Levaquin) 750 mg in 150 mls @ 100 mls/hr IV Q48H [facility] Last Infusion: 05/19/16 19:05 Dose: Infused Vancomycin HCl 1,000 mg/ (Sodium Chloride) 250 mls @ 250 mls/hr IV DAILY [facility] Last Admin: 05/21/16 11:00 Dose: 250 mls/hr Iron Carb/Multivit/Mobility Architect Manager/Folic Acid (Multivitamin W/Minerals) 1 tab PO DAILY [facility] Last Admin: 05/21/16 09:16 Dose: 1 tab Iron Carb/Multivit/[place]/Folic Acid (Multivitamin W/Minerals) 1 tab PO DAILY [facility] Last Admin: 05/21/16 09:16 Dose: Not Given Lorazepam (Ativan) 1 mg PO [facility] Last Admin: 05/20/16 20:41 Dose: 1 mg Losartan Potassium (Cozaar) 100 mg PO DAILY [facility] Last Admin: 05/21/16 09:16 Dose: 100 mg Ondansetron HCl (Zofran) 4 mg IV Q4-6HP PRN PRN Reason: Nausea And Vomiting Last Admin: 05/19/16 23:33 Dose: 4 mg Ondansetron HCl (Zofran Odt) 4 mg SL Q4-6HP PRN PRN Reason: Nausea And Vomiting Pantoprazole S[facility] ([facility]ix) [facility] Last Admin: 05/21/16 07:51 Dose: 40 mg Potassium Chloride (Kdur) 10 meq PO QAC [facility] Last Admin: 05/21/16 07:51 Dose: 10 meq Prednisone (Prednisone) 10 mg PO BIDCC [facility] Last Admin: 05/21/16 07:51 Dose: 10 mg Senna/Docusate Sodium (Senna Plus Tablet) 1 tab PO HS [facility] Last Admin: 05/20/16 20:41 Dose: 1 tab Sodium Chloride (Saline Flush) 10 ml IV Q8 [facility] Last Admin: 05/21/16 05:21 Dose: 10 ml Tramadol HCl (Ultram) 25 mg PO Q6H PRN PRN Reason: pain Trazodone HCl (Desyrel) 50 mg PO [facility] Last Admin: 05/20/16 20:41 Dose: 50 mg Vancomycin HCl (Vancomycin Per Pharmacy) 1 order IV UD [facility] Medical - DS: Hosp Hospital course: Mr. Nuñez is a 76 year old male who presented to the ER with complaints of weakness, ? fever x 1 day. The patient had presented to the ER previously with abdominal pain, nausea and vomiting, but was sent home after giving some anti nausea medications. The patient given his new weakness and, possible fever was admitted to the hospital for further management. The patient on presentation noted that he was unable to move his lower extremities as well as complained of back pain. The patient underwent a MRI LS Spine which was neg for any acute infection. X ray chest and UA on admission was negative. Procalcitonin was negative. He was treated with broad spectrum ABX initially, Cultures at 48 hrs are negative. Source of initial fever? It is likely that the patient primary pathology was dehydration leading to weakness and the patient improved significantly after hydration. The patient underwent a CT scan of the head to r/o CVA causing weakness, no acute abnormality noted however the CT Scan did reveal significant brain loss and enlarged ventricles, given his poor gait at baseline, it may be worthwhile to evaluate this further, or a neurosurgery eval for NPH may be considered by the Primary care provider. The patient under went a Ultrasound abdomen to evaluate GI pathology, which was negative. The patient had a X ray chest done today as ordered by the pervious hospitalist , but it is reported as bibasilar infiltrates. clinically the patient has no fevers/ no elevated wbc count, no increased oxygen requirement. His conditions continues to improve. Its likely that the X ray is ateletasis rather than pneumonia, I will treat the patient with po Levaquin 500mg x 7 days to cover for this. The patient at baseline is wc bound, and seems to use his walker intermittently. He was able to walk this AM/ with walker as per the nursing reports and it seems he is back to his baseline functional status, PT consult reviewed and the patient would benefit from ongoing PT, will continue same at his assisted living facility. No change in patients home medications have been done. I have added levofloxacin for 7 days for possible PNA. Discharge diagnosis: Weakness/ Pneumonia - Time Spent with Patient Total time spent providing and/or coordinating discharge services: Greater than 30 minutes Medical - DS: Exam - Constitutional Vitals: Vital Signs Temp Pulse Pulse Pulse Resp BP BP 05/21/16 13:18 97.0 F L 78 150/80 05/21/16 08:15 98.1 F 83 24 158/83 05/21/16 07:38 84 88 18 05/21/16 02:45 97.8 F 84 18 149/84 05/20/16 23:54 98.2 F 60 18 158/68 05/20/16 22:50 89 21 05/20/16 20:00 98.8 F 88 16 167/73 05/20/16 19:08 05/20/16 19:07 94 H 18 05/20/16 16:36 97.7 F 99 H 18 143/79 05/20/16 15:13 90 16 05/20/16 14:36 Pulse Ox 05/21/16 13:18 91 05/21/16 08:15 90 05/21/16 07:38 90 05/21/16 02:45 90 05/20/16 23:54 94 05/20/16 22:50 05/20/16 20:00 91 05/20/16 19:08 92 05/20/16 19:07 05/20/16 16:36 91 05/20/16 15:13 05/20/16 14:36 90 Intake and Output 05/20/16 05/21/16 05/21/16 21:59 05:59 13:59 Intake Total 460 / 460 0 / 0 250 / 250 Output Total 375 / 375 402 / 402 250 / 250 Balance 85 / 85 -402 / -402 0 / 0 Intake: IV 250 / 250 Sodium Chloride 0.9% 250 250 / 250 ml @ 250 mls/hr IV DAILY [facility] with Vancomycin 1,000 mg Rx#:[id number] Oral 460 / 460 0 / 0 Output: Void Amount 375 / 375 400 / 400 250 / 250 # of times incontinent of 2 / 2 urine Other: Meal Dinner Percent of Meal Consumed 50% # Voids 1 1 Weight 142 lb 8 oz General appearance: cooperative, no acute distress - Eye Eye exam: Absent: periorbital swelling, scleral icterus - Respiratory Respiratory exam: Present: normal respiratory exam. Absent: accessory muscle use, chest wall tenderness, stridor, wheezes - Cardiovascular Cardiovascular exam: Present: normal rate and rhythm, +S1, +S2 - Neurological Exam Neurological exam: Present: alert, CN II-XII intact - Psychiatric Psychiatric exam: Absent: agitated, anxious Medical - DS: Data Labs on day of discharge: Labs from last 24 hours 05/21/16 05/21/16 05/21/16 08:00 04:25 04:25 WBC 7.8 RBC 3.67 L Hgb 12.3 L Hct 35.9 L MCV 97.9 MCH 33.5 MCHC 34.2 RDW 13.9 Plt Count 211 MPV 7.7 Total Counted 100 Seg Neutrophils % 82 H Band Neutrophils % 2 Lymphocytes % 9 L Monocytes % (Manual) 7 Platelet Estimate Normal RBC Morphology Normal Sodium 128 L Potassium 3.6 Chloride 92 L Carbon Dioxide 24 Anion Gap 12.0 BUN 18 Creatinine 1.3 H GFR Calculation 53 Glucose 103 Uric Acid 5.1 Calcium 8.3 L Phosphorus 2.7 Magnesium 1.7 Total Bilirubin 0.5 Direct Bilirubin < 0.2 GGT 26 AST 52 H ALT 21 Alkaline Phosphatase 71 Lactate Dehydrogenase 329 H Total Protein 4.9 L Albumin 2.7 L Globulin 2.2 Albumin/Globulin Ratio 1.2 Triglycerides 95 Vancomycin Trough 13.3 Medical - DS: A/P - Patient/Caregiver Discharge Instructions Activity: ambulate only with your walker, increase activity as tolerated Diet: Cardiac Additional Instructions: Follow up with PCP in 7 days PT at home/ assisted living facility. - Problem Maintenance (1) Fever, unknown origin Status: Acute (2) Weakness Status: Acute (3) Dehydration Status: Acute (4) Nausea & vomiting Status: Acute (5) Hyponatremia Status: Chronic - Follow up Plan Follow up with: Flako Mcrae PA-C [Primary Care Provider] - (Call on Sunday to set up a hospital follow up. ) Disposition: Home Health Service Prognosis: Fair Rehab Potential: Fair I certify that the patient requires SNF services: No Overall status at discharge: patient is progressing back to baseline Medical - DS: Qual - VTE Deep Vein Thrombosis/Pulmonary Embolism Present on Admission: No
[2016-06-21] MEDS ORDERED: DIGOXIN 500 MCG/2 ML AMPUL IV ONE (20:33)
== END 2016-05-21 14:05 | disposition home health service (06) ==
LOC: ED 08:02 → MEDSUR 08:02
PROVIDERS: ADMIT Internal Medicine; ATTEND Internal Medicine

== ENCOUNTER 2016-06-20 18:21 | Inpatient (IN) ==
[2016-06-20] MEDS ORDERED: IPRATROPIUM/ALBUTEROL 3 ML AMPUL.NEB NEB ONE ×2 (18:35→23:47)
[2016-06-20] MEDS ORDERED: 0.9 % SODIUM CHLORIDE 1,000 ML IV ONE ×2 (18:48→19:00)
[2016-06-20] MEDS ORDERED: LEVOFLOXACIN 750 MG/150 ML BAG IV ONE (18:51)
[2016-06-20] MEDS ORDERED: HYDROCORTISONE SOD SUCC 100 MG VIAL IV ONE (18:53)
--- NOTE | 2016-06-20 18:54 | Emergency Department Note ---
SOB HPI - General Chief Complaint: Shortness of Breath/Dyspnea Stated Complaint: SOB, low sats Time Seen by Provider: 06/20/16 18:45 Source: patient, EMS Mode of arrival: EMS Limitations: no limitations - History of Present Illness Patient presents from [facility]; shortness of breath, fever for several days. Patient post CVA, and limited history ability. States "short of breath" . Obviously working hard to breathe. No treatments recently, no antibiotics per chart review - Related Data Home Medications Medication Instructions Recorded Confirmed acetaminophen 325 mg tablet 650 mg PO HS tab 09/24/14 06/20/16 Aspirin [Pepe Chewable Aspirin] 81 mg PO QDAY 10/20/14 06/20/16 pantoprazole 40 mg tablet,delayed 40 mg PO QAM 01/28/15 06/20/16 release docusate sodium 100 mg capsule 100 mg PO Q48 cap 01/19/16 06/20/16 ferrous sulfate 325 mg (65 mg 325 mg PO QDAY 01/19/16 06/20/16 iron) tablet multivitamin tablet 1 tab-cap PO QDAY 01/19/16 06/20/16 Acetaminophen [Tylenol] 1 - 2 tab PO Q6HP PRN 05/19/16 06/20/16 guaiFENesin/DEXTROMETHORPHAN 7.5 ml PO Q6H PRN 05/19/16 06/20/16 [Guaifenesin-Dm Solution] Previous Rx's Medication Instructions Recorded clopidogrel 75 mg tablet 75 mg PO QDAY #90 tab 01/24/16 furosemide 20 mg tablet 10 mg PO QDAY #30 tab 01/26/16 losartan 100 mg tablet 100 mg PO QDAY #90 tab 01/28/16 diphenhydramine 25 mg capsule 50 mg PO QHS #30 cap 02/11/16 prednisone 5 mg tablet 10 mg PO BID 30 Days 02/28/16 hydralazine 10 mg tablet 20 mg PO BID 30 Days 03/17/16 trazodone 50 mg tablet 50 mg PO QHS #30 tab 03/17/16 atenolol 50 mg tablet 50 mg PO BID 30 Days 04/12/16 lorazepam 1 mg tablet 1 mg PO QHS 30 Days 04/12/16 tramadol 50 mg tablet 25 mg PO Q6H PRN #60 tab 04/18/16 Ondansetron HCl [Zofran ODT] 4 mg SL Q4-6HP PRN #14 tab 05/18/16 Levofloxacin [Levaquin] 500 mg PO DAILY #7 tab 05/21/16 bisacodyl 10 mg rectal suppository 10 mg GA QDAY PRN #20 supp 05/31/16 calcium carbonate 500 mg calcium 500 mg PO .COMPLEX PRN #120 tab 05/31/16 (1,250 mg) chewable tablet MDD 3000mg/day potassium chloride ER 10 mEq 10 meq PO QDAY #30 cap 06/13/16 capsule,extended release Allergies Allergy/AdvReac Type Severity Reaction Status Date / Time Penicillins Allergy Intermediate Hives Verified 05/23/16 12:29 Sulfa (Sulfonamide Allergy Intermediate Rash Verified 05/23/16 12:29 Antibiotics) codeine Allergy Unknown Unknown Verified 05/23/16 12:29 hydrocodone Allergy Unknown Unknown Verified 05/23/16 12:29 ibuprofen Allergy Unknown Unknown Verified 05/23/16 12:29 Influenza Virus Vaccines Allergy Unknown Unknown Verified 06/20/16 19:39 Pneumococcal Vaccine Allergy Unknown Unknown Verified 06/20/16 19:39 Review of Systems Limitations: ROS unobtainable due to patients medical condition Past Medical History - Past Medical History Attestation: Yes: The following information was validated with the patient. Medical history: Reports: cancer (bladder), CVA, GERD, hypertension, other ( recurrent UTIs, prostate issues, incontinence/retention. hyponatremia. Peripheral vascular disease) Surgical history ED: Reports: vasectomy, other (TURP, bladder) Family history: Reports: non-contributory - Social History smoking status: Former smoker Alcohol use: Reports: None Drug use: Reports: none Physical Exam - General Limitations: no limitations General appearance: alert, other (alert, anxious; splinting, sitting up in bed, tachypneic) - Head Head exam: atraumatic - Eye Eye exam: Present: normal appearance - ENT ENT exam: normal exam, mucous membranes dry - Neck Neck exam: Present: normal inspection. Absent: lymphadenopathy - Chest Chest inspection: Present: symmetric chest wall rise - Respiratory Respiratory exam: Present: respiratory distress, wheezes, accessory muscle use, other (course crackles throughout). Absent: stridor - Cardiovascular Cardiovascular exam: Present: normal rhythm, tachycardia - Abdominal Exam Abdominal exam: Present: soft. Absent: tenderness - Extremities Exam Extremities exam: Present: pedal edema (3 plus right; dusky toes, slow capillary refill; particular pattern pretibial, possible mottling) - Back Exam Back exam: Present: normal inspection - Neurological Exam Neurological exam: Present: alert. Absent: oriented X3 - Psychiatric Psychiatric exam: Present: anxious - Skin Skin exam: Present: warm, mottled. Absent: rash, diaphoresis Course - Reevaluation(s) Reevaluation #1: vasopressin ordered for trending hypotension Dhruv STEPHENSON, called by phone; supports current POLST; intermediate trial of medications, DNR status; no interventions Time: 20:22 Vital Signs Temperature 100.4 F H 06/20/16 18:26 Pulse Rate 115 H 06/20/16 18:26 Respiratory Rate 37 H 06/20/16 18:26 Blood Pressure 129/70 06/20/16 18:26 Pulse Oximetry (%) 89 L 06/20/16 18:26 Temperature 100.4 F H 06/20/16 18:26 Pulse Rate 108 H 06/20/16 20:49 Respiratory Rate 22 06/20/16 20:49 Blood Pressure 143/75 06/20/16 20:49 Pulse Oximetry (%) 92 06/20/16 20:49 Shortness of Breath/Dyspnea - Lab Data Lab results reviewed: Yes I reviewed the patient's lab results. Result diagrams: 06/20/16 18:40 06/20/16 18:40 Lab Results 06/20/16 06/20/16 06/20/16 Range/Units 18:40 18:40 18:40 WBC 2.6 L (4.5-11.0) K/mcL RBC 4.06 L (4.50-5.90) M/mcL Hgb 13.1 L (13.5-16.5) g/dL Hct 40.6 L (41.0-55.0) % MCV 100.0 (80.0-100.0) fL MCH 32.4 (26.0-34.0) pg MCHC 32.4 (31.0-36.0) g/dL RDW 14.6 H (11.5-14.5) % Plt Count 220 (140-440) K/mcL MPV 7.5 (7.4-10.4) fL Total Counted 100 Seg Neutrophils % 26 L (38-78) % Band Neutrophils % 59 H (0-10) % Lymphocytes % 5 L (15-49) % Monocytes % (Manual) 7 (1-9) % Reactive Lymphocytes 3 H (0-2) % Platelet Estimate Normal (NORMAL) RBC Morphology Normal (NORMAL) VBG Lactic Acid 1.7 (0.5-2.2) mmol/L Sodium 130 L (133-145) mmol/L Potassium 4.3 (3.3-5.1) mmol/L Chloride 90 L (96-108) mmol/L Carbon Dioxide 29 (22-30) mmol/L Anion Gap 11.0 (8-16) BUN 18 (8-23) mg/dl Creatinine 1.3 H (0.7-1.2) mg/dl GFR Calculation 53 Glucose 87 (70-105) mg/dL Calcium 8.9 (8.6-10.4) mg/dl Total Bilirubin 1.0 (0.0-1.0) mg/dL AST 19 (0-37) U/l ALT 14 (0-40) U/l Alkaline Phosphatase 79 (39-117) U/L Troponin T (0-0.03) ng/ml NT-Pro-B Natriuret Pep 09120.0 H (0-450) pg/ml Total Protein 5.8 L (5.9-8.4) gm/dL Albumin 2.9 L (3.2-5.2) gm/dL Globulin 2.9 (2.2-3.7) gm/dL Albumin/Globulin Ratio 1.0 (1.0-2.3) 06/20/16 Range/Units 18:40 WBC (4.5-11.0) K/mcL RBC (4.50-5.90) M/mcL Hgb (13.5-16.5) g/dL Hct (41.0-55.0) % MCV (80.0-100.0) fL MCH (26.0-34.0) pg MCHC (31.0-36.0) g/dL RDW (11.5-14.5) % Plt Count (140-440) K/mcL MPV (7.4-10.4) fL Total Counted Seg Neutrophils % (38-78) % Band Neutrophils % (0-10) % Lymphocytes % (15-49) % Monocytes % (Manual) (1-9) % Reactive Lymphocytes (0-2) % Platelet Estimate (NORMAL) RBC Morphology (NORMAL) VBG Lactic Acid (0.5-2.2) mmol/L Sodium (133-145) mmol/L Potassium (3.3-5.1) mmol/L Chloride (96-108) mmol/L Carbon Dioxide (22-30) mmol/L Anion Gap (8-16) BUN (8-23) mg/dl Creatinine (0.7-1.2) mg/dl GFR Calculation Glucose (70-105) mg/dL Calcium (8.6-10.4) mg/dl Total Bilirubin (0.0-1.0) mg/dL AST (0-37) U/l ALT (0-40) U/l Alkaline Phosphatase (39-117) U/L Troponin T 0.11 H* (0-0.03) ng/ml NT-Pro-B Natriuret Pep (0-450) pg/ml Total Protein (5.9-8.4) gm/dL Albumin (3.2-5.2) gm/dL Globulin (2.2-3.7) gm/dL Albumin/Globulin Ratio (1.0-2.3) - Radiology Data Radiology results reviewed: Yes I reviewed the patient's radiology results. underlying reticular pattern consistent with underlying pulmonary fibrosis; superimposed cephalization consistent with volume overload - EKG Data EKG attestation: Yes I reviewed and interpreted this EKG. EKG results narrative: accelerated junctional; lateral ST and T-wave depressions Critical Care Time Critical Care Time: Yes Total Critical Care Time: 75 Attestation: acute hypoxic respiratory distress; hypotension consistent with sepsis, requiring pressors also, ACS with EKG changes, elevated troponin Disposition Clinical Impression: Acute interstitial pneumonia, ACS (acute coronary syndrome) Pulmonary edema Qualifiers: Chronicity: acute Qualified Code(s): J81.0 - Acute pulmonary edema Sepsis Qualifiers: Sepsis type: sepsis due to unspecified organism Qualified Code(s): A41.9 - Sepsis, unspecified organism Summary: discussed with POA, relates patients desire for intermedite cares; admit to Dr Camarillo elevated trop and ekg changes felt to be consistent with demand ischemia, secondary to sepsis early IVF support with antibiotics, cultures pending Condition: Serious Referrals: Flako Mcrae PA-C [Primary Care Provider] -
[2016-06-20 19:28] LABS: Mean Corpuscular HGB Conc 32.4 g/dL (31.0-36.0); Mean Corpuscular Hemoglobin 32.4 pg (26.0-34.0); Platelet Count 220 K/mcL (140-440); RBC 4.06 M/mcL (4.50-5.90); Red Cell Distribution Width 14.6 % (11.5-14.5)
[2016-06-20 19:51] LABS: ALT/SGPT 14 U/l (0-40); Albumin 2.9 gm/dL (3.2-5.2); Alkaline Phosphatase 79 U/L (39-117); Blood Urea Nitrogen 18 mg/dl (8-23)
[2016-06-20] MEDS ORDERED: VASOPRESSIN 20 UNIT/ML VIAL ONE (20:19)
[2016-06-20] MEDS ORDERED: 0.9 % SODIUM CHLORIDE 250 ML IV SCH (20:30)
[2016-06-20] MEDS ORDERED: VASOPRESSIN 20 UNIT in DEXTROSE 5% IN WATER 99 ML IV SCH (20:30)
[2016-06-20 20:33] LABS: Band Neutrophils % 59 % (0-10); Lymphocytes % 5 % (15-49); Monocytes % (Manual) 7 % (1-9); Platelet Estimate NORMAL (NORMAL); RBC Morphology NORMAL (NORMAL); Segmented Neutrophils % 26 % (38-78)
[2016-06-20] MEDS ORDERED: 0.9 % SODIUM CHLORIDE 1,000 ML IV SCH (21:00)
[2016-06-20] MEDS ORDERED: LORazepam 1 MG TABLET PO PRN (22:39)
[2016-06-20] MEDS ORDERED: ONDANSETRON 4 MG/2 ML VIAL IV PRN (23:29)
[2016-06-20] MEDS ORDERED: CEFEPIME 1 GM in DEXTROSE 5% IN WATER 50 ML IV SCH (23:29)
[2016-06-20] MEDS ORDERED: AZITHROMYCIN 500 MG in DEXTROSE 5% IN WATER 250 ML IV ONE (23:29)
[2016-06-20] MEDS ORDERED: ACETAMINOPHEN 325 MG TABLET PO PRN (23:29)
[2016-06-20] MEDS ORDERED: ATORVASTATIN 40 MG TABLET PO SCH (23:29)
[2016-06-20] MEDS ORDERED: BISACODYL 10 MG SUPP.RECT PR PRN (23:29)
[2016-06-20] MEDS ORDERED: VANCOMYCIN 1,000 MG in 0.9 % SODIUM CHLORIDE 250 ML IV ONE (23:29)
[2016-06-20] MEDS ORDERED: SENNOSIDES 1 TABLET PO PRN (23:29)
[2016-06-20] MEDS ORDERED: VANCOMYCIN PER PHARMACY IV ONE (23:29)
[2016-06-20] MEDS ORDERED: NALOXONE HCL 0.4 MG/ML VIAL IV PRN (23:29)
[2016-06-20] MEDS ORDERED: MAG HYDROX/AL HYDROX/SIMETH 30 ML ORAL.SUSP PO PRN (23:29)
[2016-06-20] MEDS ORDERED: CEFEPIME 1 GM VIAL ONE (23:34)
[2016-06-20] MEDS ORDERED: VANCOMYCIN 1 GM VIAL ONE (23:35)
[2016-06-20] MEDS: IPRATROPIUM/ALBUTEROL 3 ML AMPUL.NEB NEB SCH (23:59)
--- NOTE | 2016-06-21 00:04 | Internal Med History&Physical ---
Medical - H&P: [facility] Patient information: Note initiated : 06/20/16 at 11:56 pm Service Date, if different from initiated Date: [] Patient: Manas Nuñez 76 y/o M admitted on 06/20/16 for SOB, low sats. Chief Complaint: [] History of present illness: Mr. Nuñez is a 76 year old male who presented to the ER from a NH after not feeling well/ weak x 2 days. The patient was hard of hearing, and unable to communicate well. History obtained from the chart review. He was not doing well in the NH, fo 2 days, feeling weak and tired, noted to have fever and hypoxia and sent here. EMS noted hypoxia with oxgyen sat of 77%, he was needing 6-8L oxygen to maintain his oxygen saturations, his temp was 103. Pt in the ER denies any symptoms but not sure if he could understand me well, he was very hard of hearing. he is not sure why he was in the ER In the ER he was noted to be febrile, hypoxic, hypotensive. Labs showed low wbc , elevated bnp and troponin. EKG shows st wave changes in the lateral leads, but similar changes noted also on previous ekg. X ray showed etienne intersitial edema/ infiltrate Lactae 1.7 ABG 7.42/45/54 GIven low bp which persisted after fluids, pt was started on vasopressin by ER physician. with improvement in bp Given pt severe sickness, the POA was contacted by the ER physician who advised pt be treated here mediacally and not intervention for cardiac issue warranted. Patient was therefore admitted to the hospital for further management. I contacted the POA who reaffirmed the DNR status, I explained to him that we do not have a car pusher here and pt d oes have myocardia injury due to sepsis. He may need stress test and cath, which the POA was not interested in given pts comorbidities. Also given that his myocardial injury was likely from sepsis, plan was made to treat him medically here. Patient was admitted to the ICU for further management ROS unobtainable: due to mental status Medical - H&P: [facility] Medical history: Medical History ACS (acute coronary syndrome) (Acute) Acute interstitial pneumonia (Acute) COPD with acute exacerbation (Acute) Chronic kidney disease (CKD) (Acute) Non-ST elevation myocardial infarction (NSTEMI), type 2 (Acute) Pulmonary edema (Acute) Sepsis (Acute) Septic shock (Acute) Acute pain of right hip (Acute) Community acquired pneumonia (Acute) Dehydration (Acute) Fever, unknown origin (Acute) Nausea & vomiting (Acute) Urinary frequency (Acute) Urinary incontinence due to benign prostatic hyperplasia (Acute) Urinary retention due to benign prostatic hyperplasia (Acute) Weakness (Acute) Abscess of skin or subcutaneous tissue (Chronic) BPH without obstruction/lower urinary tract symptoms (Chronic) Bladder malignancy (Chronic) Cellulitis (Chronic) Cellulitis and abscess (Chronic 06/02/14) Cerebrovascular accident (Chronic) Cerebrovascular accident (CVA) (Chronic) Compressed vertebrae (Chronic) Creatinine elevation (Chronic 08/18/14) Dermatitis (Chronic) Eczema (Chronic) Edema (Chronic 08/18/14) Gastroesophageal reflux (Chronic) History of colonic polyps (Chronic) Hypertension, essential (Chronic) Hypokalemia (Chronic) Hyponatremia (Chronic) Hyposmolality and/or hyponatremia (Chronic 08/18/14) Open wound of lower limb (Chronic 06/02/14) Peripheral Vascular Disease (Chronic) UTI (urinary tract infection) (Chronic) Urinary retention (Chronic) Vascular headache (Chronic) Surgical history: Past Surgical History History of biopsy (Resolved) History of bladder surgery (Resolved) History of cystoscopy (Resolved) History of retained foreign body fully removed (Resolved) History of transurethral resection of prostate (Resolved) History of vasectomy (Resolved) Pertinent family history: unable to review Social history: [place] resident. rest could not be verified. Medical - H&P: Meds Home Medications Medication Instructions Recorded Confirmed Type acetaminophen 325 mg tablet 650 mg PO HS tab 09/24/14 06/20/16 History Aspirin [Pepe Chewable Aspirin] 81 mg PO QDAY 10/20/14 06/20/16 History pantoprazole 40 mg tablet,delayed 40 mg PO QAM 01/28/15 06/20/16 History release docusate sodium 100 mg capsule 100 mg PO Q48 cap 01/19/16 06/20/16 History ferrous sulfate 325 mg (65 mg 325 mg PO QDAY 01/19/16 06/20/16 History iron) tablet multivitamin tablet 1 tab-cap PO QDAY 01/19/16 06/20/16 History clopidogrel 75 mg tablet 75 mg PO QDAY #90 tab 01/24/16 06/20/16 Rx furosemide 20 mg tablet 10 mg PO QDAY #30 tab 01/26/16 06/20/16 Rx losartan 100 mg tablet 100 mg PO QDAY #90 tab 01/28/16 06/20/16 Rx diphenhydramine 25 mg capsule 50 mg PO QHS #30 cap 02/11/16 06/20/16 Rx prednisone 5 mg tablet 10 mg PO BID 30 Days 02/28/16 06/20/16 Rx hydralazine 10 mg tablet 20 mg PO BID 30 Days 03/17/16 06/20/16 Rx trazodone 50 mg tablet 50 mg PO QHS #30 tab 03/17/16 06/20/16 Rx atenolol 50 mg tablet 50 mg PO BID 30 Days 04/12/16 06/20/16 Rx lorazepam 1 mg tablet 1 mg PO QHS 30 Days 04/12/16 06/20/16 Rx tramadol 50 mg tablet 25 mg PO Q6H PRN #60 tab 04/18/16 06/20/16 Rx Ondansetron HCl [Zofran ODT] 4 mg SL Q4-6HP PRN #14 tab 05/18/16 06/20/16 Rx Acetaminophen [Tylenol] 1 - 2 tab PO Q6HP PRN 05/19/16 06/20/16 History guaiFENesin/DEXTROMETHORPHAN 7.5 ml PO Q6H PRN 05/19/16 06/20/16 History [Guaifenesin-Dm Solution] Levofloxacin [Levaquin] 500 mg PO DAILY #7 tab 05/21/16 06/20/16 Rx bisacodyl 10 mg rectal suppository 10 mg [place] QDAY PRN #20 supp 05/31/16 06/20/16 Rx calcium carbonate 500 mg calcium 500 mg PO .COMPLEX PRN #120 tab 05/31/16 Rx (1,250 mg) chewable tablet MDD 3000mg/day potassium chloride ER 10 mEq 10 meq PO QDAY #30 cap 06/13/16 06/20/16 Rx capsule,extended release Allergies Allergy/AdvReac Type Severity Reaction Status Date / Time Penicillins Allergy Intermediate Hives Verified 05/23/16 12:29 Sulfa (Sulfonamide Allergy Intermediate Rash Verified 05/23/16 12:29 Antibiotics) codeine Allergy Unknown Unknown Verified 05/23/16 12:29 hydrocodone Allergy Unknown Unknown Verified 05/23/16 12:29 ibuprofen Allergy Unknown Unknown Verified 05/23/16 12:29 Influenza Virus Vaccines Allergy Unknown Unknown Verified 06/20/16 19:39 Pneumococcal Vaccine Allergy Unknown Unknown Verified 06/20/16 19:39 Medical - H&P: Exam - Constitutional Vitals: Temp Pulse Resp BP Pulse Ox 100.4 F H 102 H 27 H 128/76 96 06/20/16 18:26 06/20/16 23:41 06/20/16 22:55 06/20/16 23:41 06/20/16 23:41 General appearance: cooperative, mild distress - Head Head exam: Present: atraumatic, normal inspection - Eye Eye exam: Present: PERRL. Absent: periorbital swelling, periorbital tenderness , scleral icterus - ENT ENT exam: Present: mucous membranes dry Additional comments: Hard of hearing. - Neck Neck exam: Present: normal inspection - Respiratory Respiratory exam: Present: prolonged expiratory phase, rhonchi, wheezes. Absent : accessory muscle use, rales, respiratory distress, stridor - Cardiovascular Cardiovascular exam: Present: +S1, +S2, tachycardia - GI/Abdominal GI/Abdominal exam: Present: normal bowel sounds, soft. Absent: rigid, tenderness - Extremities Exam Additional comments: right leg edema noted. skin tear vs ulcer on the left leg - Back Exam Back exam: Present: normal inspection - Neurological Exam Additional comments: [id number] moving all extremities CN grossly normal no obivous focal deficit noted. - Psychiatric Psychiatric exam: Absent: agitated, anxious - Skin Skin exam: Present: warm. Absent: rash, urticaria Medical - H&P: Reslt - Labs CBC & Chem 7: 06/20/16 18:40 06/20/16 18:40 - ABG Interpretation -: ABG interpreted by me Additional comments: metabolic alkalosis - EKG Data -: EKG Reviewed by Myself - EKG Data When compared to previous EKG: there is no significant change Medical - H&P: A/P (1) Septic shock Current visit: Yes Status: Acute (2) Non-ST elevation myocardial infarction (NSTEMI), type 2 Current visit: Yes Status: Acute (3) Chronic kidney disease (CKD) Current visit: Yes Status: Acute (4) COPD with acute exacerbation Current visit: Yes Status: Acute (5) Acute interstitial pneumonia Current visit: Yes Status: Acute (6) Hypertension, essential Current visit: No Status: Chronic - Narrative A/P Narrative: Treat sepsis as per protocol No cpr/ Intubation as per POA, ok for use of bipap, bipap ordered as stand by IV vanco / zithro / cefepime (allergic to penicillin) IV solumedrol IV fluids continue vasopressin for now, keep map > 65 Creat seems to be at baseline. Pt does not have known h/o copd, but does have reactive airway disease and is behaving like a copd pt NSTEMI type 2, on asa and plavix, add statin, will resume beta blockers and GABRIELLE as bp allows. No indication for anticoagulation given pt does not have chest pain, and ekg changes are not new. Troponin leak likely secondary to severe sepsis and copd. will trend for now.
[2016-06-21] MEDS ORDERED: IPRATROPIUM/ALBUTEROL 3 ML AMPUL.NEB NEB ONE (03:16)
[2016-06-21] MEDS: FAMOTIDINE/PF 20 MG/2 ML VIAL IV SCH ×2 (03:22→21:18)
[2016-06-21] MEDS: 0.9 % SODIUM CHLORIDE 250 ML IV SCH ×2 (03:23→11:03)
[2016-06-21] MEDS: IPRATROPIUM/ALBUTEROL 3 ML AMPUL.NEB NEB SCH ×7 (03:23→22:55)
[2016-06-21] MEDS ORDERED: VASOPRESSIN 20 UNIT/ML VIAL ONE (03:33)
[2016-06-21] MEDS ORDERED: VASOPRESSIN 20 UNIT in DEXTROSE 5% IN WATER 99 ML IV SCH (04:30)
[2016-06-21 05:52] LABS: Basophils # (Auto) 0 K/mcL (0.0-0.3); Basophils % (Auto) 0 % (0.0-2.0); Eosinophils # (Auto) 0 K/mcL (0.0-0.7); Eosinophils % (Auto) 0 % (0.0-7.0); Granulocytes % (Auto) 89.5 % (38.0-78.0); Lymphocytes # (Auto) 0.3 K/mcL (1.5-4.8); Lymphocytes % (Auto) 6.1 % (15.5-49.0); Mean Cell Volume 101.4 fL (80.0-100.0); Mean Corpuscular HGB Conc 32.3 g/dL (31.0-36.0); Mean Corpuscular Hemoglobin 32.7 pg (26.0-34.0); Monocytes # (Auto) 0.2 K/mcL (0.1-0.9); Monocytes % (Auto) 4.4 % (1.0-9.0); Platelet Count 174 K/mcL (140-440); RBC 3.42 M/mcL (4.50-5.90); Red Cell Distribution Width 14.9 % (11.5-14.5)
[2016-06-21 06:08] LABS: ALT/SGPT 12 U/l (0-40); Albumin 2.4 gm/dL (3.2-5.2); Albumin/Globulin Ratio 1.4 (1.0-2.3); Alkaline Phosphatase 57 U/L (39-117); Bilirubin,Direct 0.3 mg/dL (0.0-0.3); Blood Urea Nitrogen 17 mg/dl (8-23); Gamma Glutamyl Transpeptidase 27 U/L (8-61); Magnesium 1.5 mg/dL (1.6-2.5); Phosphorous 3.2 mg/dL (2.7-4.5); Uric Acid 5.4 mg/dL (2.5-8.0)
[2016-06-21] MEDS ORDERED: VANCOMYCIN PER PHARMACY IV SCH (07:15)
[2016-06-21] MEDS: methylPREDNISolone SOD SUCC 125 MG/2 ML VIAL IV SCH ×3 (07:15→21:17)
[2016-06-21] MEDS: 0.9 % SODIUM CHLORIDE 10 ML SYRINGE IV SCH ×3 (07:16→21:21)
[2016-06-21] MEDS ORDERED: MAGNESIUM SULFATE 2 GM/50 ML BAG IV ONE (07:20)
[2016-06-21] MEDS ORDERED: PANTOPRAZOLE 40 MG TABLET PO SCH (07:30)
--- NOTE | 2016-06-21 07:37 | XRay Report ---
CLINICAL INFORMATION: Shortness of breath COMPARISON: 05/23/2016 chest x-ray. FINDINGS: Mild cardiomegaly is unchanged. Mediastinum and pulmonary vessels are normal. Moderate sized infiltrate in the right base with small infiltrate left base have developed since prior plain film. Severe underlying COPD changes (known from a 05/23/[address]] seen - as before. No effusions IMPRESSION: Moderate right and small left basilar infiltrates Severe underlying COPD Interpreted and Authenticated by: Hilton Aragon 06/21/16
[2016-06-21] MEDS ORDERED: CLOPIDOGREL 75 MG TABLET PO SCH (09:00)
[2016-06-21] MEDS ORDERED: ASPIRIN 81 MG TAB.CHEW PO SCH (09:00)
[2016-06-21] MEDS ORDERED: OSELTAMIVIR PHOSPHATE 75 MG CAPSULE PO SCH (09:00)
[2016-06-21] MEDS ORDERED: VASOPRESSIN 20 UNIT in DEXTROSE 5% IN WATER 99 ML IV PRN (09:01)
[2016-06-21] MEDS: PANTOPRAZOLE 40 MG TABLET PO SCH (09:09)
[2016-06-21] MEDS: CLOPIDOGREL 75 MG TABLET PO SCH (09:11)
[2016-06-21] MEDS: ASPIRIN 81 MG TAB.CHEW PO SCH (09:11)
--- NOTE | 2016-06-21 09:36 | XRay Report ---
CLINICAL INFORMATION: Shortness of breath COMPARISON: 06/20/2016 FINDINGS: The heart is mildly enlarged, but unchanged. Mediastinum and pulmonary vessels are normal. Moderate size bibasilar infiltrates have increased in size and consolidation since yesterday. No effusions IMPRESSION: Moderate size bibasilar infiltrates - worsening considerably since yesterday. Interpreted and Authenticated by: Hilton Aragon 06/21/16
--- NOTE | 2016-06-21 10:10 | Internal Med Progress Note ---
Medical - PN: Subj Patient information: Note initiated : 06/21/16 at 10:05 am Service Date, if different from initiated Date: [] Patient: Manas Nuñez 76 y/o M admitted on 06/20/16 for SOB, low sats. Chief Complaint: [] Interval history: Mr. Nuñez is a 76 year old male who presented to the ER from a DC after not feeling well/ weak x 2 days. The patient was hard of hearing, and unable to communicate well. 06/20: Pt admitted from DC after not feeling well x 2 days, noted to be hypoxic, hypotensive in septic shock, X ray shows etienne infiltrates at the bases. He was admitted to the hospital for management of septic shock secondary to HCAP pneumonia. He was placed on vasopressin drip, BIPAP, IV vanco and cefepime, zithromax. Pt also had elevated troponin on admission and ST changes which seem to be old. He likely has type 2 [place]. Right leg edema noted on exam, DVT scan pending. 06/21: Patient seen on bipap doing well this AM, saturating well on Fio2 40 percent. Not able to communicate well, but mental status is much better than last night. labs reviewed, trop repeat is 0.06, His WBC count improved from leucopenia to normal levels. His ABG reviwed, X ray done this AM shows worsening PNA, but clinically he is better. BP stable, will wean off pressors and bipap this AM and see how he does. Echo and Duplex lower extremities pending His breathing and air entry is much better this AM. Continue IV antibiotics Vanco/ Cefepime D2/ 7 today, Zithro D2/ 5 today. Pertinent ROS: Denies headache, dizziness Denies chest pain, palpitations Denies cough or shortness of breath (seesm sob but he denies it) Denies abdominal pain, nausea or vomiting. - Constitutional Vitals: Vital Signs Temp Pulse Resp BP Pulse Ox 96.8 F L 80 20 150/82 99 06/21/16 04:00 06/21/16 07:31 06/21/16 07:31 06/21/16 06:00 06/21/16 07:00 Period Temp Pulse Resp BP Sys/Alvarado Pulse Ox Last 24 Hr 96.8 F-97.7 F 80-102 18-24 97-150/57-82 88-100 Intake and Output 03/07/17 03/08/17 03/08/17 21:59 05:59 13:59 Intake Total 890 / 890 Output Total 2 / 2 Balance 888 / 888 Weight 134 lb 6.4 oz Intake & Output: Intake & Output 06/20/16 06/21/16 06/21/16 21:59 05:59 13:59 Intake Total 890 / 890 Output Total 2 / 2 Balance 888 / 888 Weight 134 lb 6.4 oz Intake: IV 340 / 340 Dextrose 5% in Water 250 250 / 250 ml @ 250 mls/hr IV ONCE ONE with Zithromax 500 mg Rx#:[id number] Vasostrict 20 Unit In 90 / 90 Dextrose 5% in Water 99 ml @ 0.04 UNIT/MIN 12 mls /hr IV Q8H [facility] Rx#: [id number] Oral 0 / 0 IV - Manual Only 550 / 550 Output: # of times incontinent of 2 / 2 urine Exam: Constitutional; Afebrile, cooperative, alert, not in distress. Eyes- No icterus, Pupils equal, reactive, No periorbital swelling Ears- Ext ear normal, hearing hard to conversation. Neck- Midline trachea, supple Respiratory system: Air Entry equal on both sides, but etienne decreased, prolonged exp phase, etienne rhonchi, improved from yesterday. CVS- Rate rhythm regular, S1,S2 heard, no gallop, no rub. Abdomen- Soft nontender abdomen, no organomegaly, no tenderness, no guarding or rigidity, [employer]- AOOx1, moving all extremities, no focal deficit noted. Medical - PN: Obj Da - Labs CBC & Chem 7: 06/21/16 04:35 06/21/16 04:35 Labs: Abnormal Lab Results 06/21/16 06/21/16 06/21/16 08:15 04:35 04:35 RBC 3.42 L Hgb 11.2 L Hct 34.6 L MCV 101.4 H RDW 14.9 H MPV 7.1 L Gran % 89.5 H Lymph % (Auto) 6.1 L Lymph # 0.3 L Glucose 167 H Calcium 7.7 L Magnesium 1.5 L Troponin T 0.06 H* Total Protein 4.1 L Albumin 2.4 L Globulin 1.7 L Meds: Medications Acetaminophen (Tylenol) 650 mg PO Q4-6HP PRN PRN Reason: PAIN/FEVER > 101 Al Hydrox/Mg Hydrox/Simethicone (Maalox) 30 ml PO Q4-6HP PRN PRN Reason: Dyspepsia Albuterol/Ipratropium (Duoneb) [address] [facility] Last Admin: 06/21/16 07:08 Dose: 3 ml Aspirin (Aspirin) [address] [facility] Atorvastatin Calcium (Lipitor) [address] [facility] Azithromycin (Zithromax) [address] [facility] Stop: 06/24/16 09:01 Bisacodyl (Dulcolax) 10 mg WV Q2-3DAYS PRN PRN Reason: Constipation Clopidogrel Bisulfate (Plavix) [address] [facility] Famotidine (Pepcid) [address] [facility] Last Admin: 06/21/16 03:22 Dose: Not Given Heparin Sodium (Porcine) (Heparin) 5,[address] [facility] Hydromorphone HCl (Dilaudid) 0.5 mg IV Q2HP PRN PRN Reason: Pain Sodium Chloride (Sodium Chloride 0.9%) 250 mls @ 20 mls/hr IV .[id number] [facility] Last Admin: 06/21/16 03:23 Dose: Not Given Cefepime HCl 1 gm/ Dextrose 50 mls @ 100 mls/hr IV Q12H [facility] Vancomycin HCl 500 mg/ Sodium (Chloride) 100 mls @ 100 mls/hr IV ONCE ONE Stop: 06/21/16 15:59 Vancomycin HCl 1,000 mg/ (Sodium Chloride) 250 mls @ 250 mls/hr IV Q24H [facility] Vasopressin 20 unit/ Dextrose 100 mls @ 12 mls/hr IV Q8HP PRN; 0.04 UNIT/MIN PRN Reason: Hypotension Lorazepam (Ativan) [address] [facility] Methylprednisolone Sodium Succinate (Solu-Medrol) 62.[address] [facility] Last Admin: 06/21/16 07:15 Dose: 62.5 mg Naloxone HCl (Narcan) 0.1 mg IV Q2MIN PRN PRN Reason: Opiate Reversal Ondansetron HCl (Zofran) 4 mg IV Q4-6HP PRN PRN Reason: Nausea And Vomiting Oseltamivir Phosphate (Tamiflu) [address] [facility] Stop: 06/25/16 21:01 Pantoprazole Sodium (Protonix) [address] [facility] Senna (Senokot) 2 tab PO HSP PRN PRN Reason: Constipation Sodium Chloride (Saline Flush) [address] [facility] Last Admin: 06/21/16 07:16 Dose: 10 ml Vancomycin HCl (Vancomycin Per Pharmacy) [address] [facility] Medical - PN: A/P - Time Spent With Patient Total time spent is greater than 50% in coordination of care (as documented) at patient's floor/unit and/or counseling patient: 25 - 35 minutes (1) Septic shock Status: Acute Current Visit: Yes (2) Non-ST elevation myocardial infarction (NSTEMI), type 2 Status: Acute Current Visit: Yes (3) Chronic kidney disease (CKD) Status: Acute Current Visit: Yes (4) COPD with acute exacerbation Status: Acute Current Visit: Yes (5) Hypertension, essential Status: Chronic Current Visit: No (6) HCAP (healthcare-associated pneumonia) Status: Acute Current Visit: Yes - Narrative A/P Narrative: HCAP pneumonia Septic shock Acute respiratory failure needing bipap support COPD exacerbation NSTEMI type 2, demand ischemia Septic encephalopathy. ckd at near baseline renal function. Plan to continue IV fluids, Wean off pressors Wean off bipap today continue oxygen supplementation continue IV antibiotics IV steroids. ST adeel appreciated, Resume diet as per their reccommendations. Repeat Trop improving, no cp, Await Echo results Await Duplex lower extremities for DVT given unilateral edema 32 Mins critical time spent, reviewing ABG, managing bipap/ pressors. Medical - PN: Qual - VTE Deep Vein Thrombosis/Pulmonary Embolism Present on Admission: Yes
[2016-06-21] MEDS: CEFEPIME 1 GM in DEXTROSE 5% IN WATER 50 ML IV SCH ×2 (10:55→21:16)
[2016-06-21] MEDS: AZITHROMYCIN 250 MG TABLET PO SCH (10:58)
[2016-06-21] MEDS: HEPARIN 5,000 UNIT/ML VIAL SQ SCH ×2 (11:11→21:17)
[2016-06-21] MEDS: OSELTAMIVIR PHOSPHATE 75 MG CAPSULE PO SCH ×2 (11:12→21:21)
[2016-06-21] MEDS ORDERED: VANCOMYCIN 500 MG in 0.9 % SODIUM CHLORIDE 100 ML IV ONE (15:00)
[2016-06-21] MEDS ORDERED: DIGOXIN 500 MCG/2 ML AMPUL IV ONE (20:13)
[2016-06-21] MEDS ORDERED: ALBUTEROL SULFATE 2.5 MG/3 ML NEBULIZER NEB PRN (20:15)
[2016-06-21] MEDS ORDERED: DILTIAZEM 25 MG/5 ML VIAL IV PRN (20:20)
[2016-06-21] MEDS ORDERED: METOPROLOL TARTRATE 5 MG/5 ML VIAL IV ONE ×3 (21:08→23:40)
[2016-06-21] MEDS ORDERED: METOPROLOL TARTRATE 25 MG TABLET ONE (21:14)
[2016-06-21] MEDS: LORazepam 1 MG TABLET PO SCH (21:17)
[2016-06-21] MEDS: METOPROLOL SUCCINATE 25 MG TAB.XL.24H PO SCH (21:18)
[2016-06-21] MEDS: ATORVASTATIN 20 MG TABLET PO SCH (21:21)
[2016-06-21] MEDS: METOPROLOL TARTRATE 5 MG/5 ML VIAL IV PRN ×2 (22:36→23:48)
[2016-06-21] MEDS: HYDROmorphone 2 MG/ML SYRINGE IV PRN (23:18)
[2016-06-22] MEDS ORDERED: DIGOXIN 500 MCG/2 ML AMPUL IV ONE ×3 (00:30→09:39)
[2016-06-22] MEDS: 0.9 % SODIUM CHLORIDE 250 ML IV SCH ×2 (00:33→15:52)
[2016-06-22] MEDS: IPRATROPIUM/ALBUTEROL 3 ML AMPUL.NEB NEB SCH ×4 (00:34→18:49)
[2016-06-22] MEDS: methylPREDNISolone SOD SUCC 125 MG/2 ML VIAL IV SCH ×3 (05:29→22:32)
[2016-06-22] MEDS: 0.9 % SODIUM CHLORIDE 10 ML SYRINGE IV SCH ×6 (05:30→22:51)
[2016-06-22 05:52] LABS: Basophils # (Auto) 0 K/mcL (0.0-0.3); Basophils % (Auto) 0 % (0.0-2.0); Eosinophils # (Auto) 0 K/mcL (0.0-0.7); Eosinophils % (Auto) 0 % (0.0-7.0); Granulocytes % (Auto) 93.8 % (38.0-78.0); Lymphocytes # (Auto) 0.2 K/mcL (1.5-4.8); Lymphocytes % (Auto) 2.2 % (15.5-49.0); Mean Cell Volume 101.2 fL (80.0-100.0); Mean Corpuscular HGB Conc 31.8 g/dL (31.0-36.0); Mean Corpuscular Hemoglobin 32.2 pg (26.0-34.0); Monocytes # (Auto) 0.4 K/mcL (0.1-0.9); Platelet Count 208 K/mcL (140-440); RBC 3.34 M/mcL (4.50-5.90); Red Cell Distribution Width 14.7 % (11.5-14.5)
[2016-06-22 06:31] LABS: ALT/SGPT 11 U/l (0-40); Albumin 2.5 gm/dL (3.2-5.2); Albumin/Globulin Ratio 1.3 (1.0-2.3); Alkaline Phosphatase 68 U/L (39-117); Bilirubin,Direct 0.2 mg/dL (0.0-0.3); Blood Urea Nitrogen 27 mg/dl (8-23); Gamma Glutamyl Transpeptidase 24 U/L (8-61); Magnesium 2.4 mg/dL (1.6-2.5); Phosphorous 4.6 mg/dL (2.7-4.5); Uric Acid 6.2 mg/dL (2.5-8.0)
[2016-06-22] MEDS: PANTOPRAZOLE 40 MG TABLET PO SCH (06:52)
--- NOTE | 2016-06-22 07:54 | General Surgery Consult Note ---
History of Present Illness Patient information: Note initiated : 06/22/16 at 7:49 am Service Date, if different from initiated Date: [] Patient: Manas Nuñez 76 y/o M admitted on 06/20/16 for SOB, Low sats/ Septic Shock. Chief Complaint: [] Consult date: 06/21/16 Requesting physician: Freedom Camarillo History of present illness: Patient seen with Linnette BAUTISTA Inpatient Wound care nurse. Patient well known to wound care service. Seen in past for skin related issues and dermatitis legs. EHR reviewed and case discussed with Dr. Camarillo, Hospitalist Physician. I reviewed the details of PMH, PSH, FH and ROS from EHR. 76/M Emergently admitted to hospital from SNF with Septic Shock, SIRS against a background of COPD, HTN and Chronic deconditioning and limited mobilityHe pr and activity. He presented to the ER acutely, with pneumonia, shock and NSTEMI. myocardial injury and acute exacerbation of CKD Since admission to ICU his hemodynamic status is stabilizing and infection parameters are responding to supportive medical management. He is DNR status. Currently, lower extremity dermatitis and pressure points are stable. There are no acute wound care issues that need intervention. Medications and Allergies Home Medications Medication Instructions Recorded Confirmed Type acetaminophen 325 mg tablet 650 mg PO HS tab 09/24/14 06/20/16 History Aspirin [Pepe Chewable Aspirin] 81 mg PO QDAY 10/20/14 06/20/16 History pantoprazole 40 mg tablet,delayed 40 mg PO QAM 01/28/15 06/20/16 History release docusate sodium 100 mg capsule 100 mg PO Q48 cap 01/19/16 06/20/16 History ferrous sulfate 325 mg (65 mg 325 mg PO QDAY 01/19/16 06/20/16 History iron) tablet multivitamin tablet 1 tab-cap PO QDAY 01/19/16 06/20/16 History clopidogrel 75 mg tablet 75 mg PO QDAY #90 tab 01/24/16 06/20/16 Rx furosemide 20 mg tablet 10 mg PO QDAY #30 tab 01/26/16 06/20/16 Rx losartan 100 mg tablet 100 mg PO QDAY #90 tab 01/28/16 06/20/16 Rx diphenhydramine 25 mg capsule 50 mg PO QHS #30 cap 02/11/16 06/20/16 Rx prednisone 5 mg tablet 10 mg PO BID 30 Days 02/28/16 06/20/16 Rx hydralazine 10 mg tablet 20 mg PO BID 30 Days 03/17/16 06/20/16 Rx trazodone 50 mg tablet 50 mg PO QHS #30 tab 03/17/16 06/20/16 Rx atenolol 50 mg tablet 50 mg PO BID 30 Days 04/12/16 06/20/16 Rx lorazepam 1 mg tablet 1 mg PO QHS 30 Days 04/12/16 06/20/16 Rx tramadol 50 mg tablet 25 mg PO Q6H PRN #60 tab 04/18/16 06/20/16 Rx Ondansetron HCl [Zofran ODT] 4 mg SL Q4-6HP PRN #14 tab 05/18/16 06/20/16 Rx Acetaminophen [Tylenol] 1 - 2 tab PO Q6HP PRN 05/19/16 06/20/16 History guaiFENesin/DEXTROMETHORPHAN 7.5 ml PO Q6H PRN 05/19/16 06/20/16 History [Guaifenesin-Dm Solution] Levofloxacin [Levaquin] 500 mg PO DAILY #7 tab 05/21/16 06/20/16 Rx bisacodyl 10 mg rectal suppository 10 mg CA QDAY PRN #20 supp 05/31/16 06/20/16 Rx calcium carbonate 500 mg calcium 500 mg PO .COMPLEX PRN #120 tab 05/31/16 Rx (1,250 mg) chewable tablet MDD 3000mg/day potassium chloride ER 10 mEq 10 meq PO QDAY #30 cap 06/13/16 06/20/16 Rx capsule,extended release Allergies Allergy/AdvReac Type Severity Reaction Status Date / Time Penicillins Allergy Intermediate Hives Verified 05/23/16 12:29 Sulfa (Sulfonamide Allergy Intermediate Rash Verified 05/23/16 12:29 Antibiotics) codeine Allergy Unknown Unknown Verified 05/23/16 12:29 hydrocodone Allergy Unknown Unknown Verified 05/23/16 12:29 ibuprofen Allergy Unknown Unknown Verified 05/23/16 12:29 Influenza Virus Vaccines Allergy Unknown Unknown Verified 06/20/16 19:39 Pneumococcal Vaccine Allergy Unknown Unknown Verified 06/20/16 19:39 Tomato Allergy Verified 06/21/16 17:31 tomato soup Allergy Uncoded 06/21/16 17:31 Exam Temp Pulse Resp BP Pulse Ox 98.0 F 65 20 103/55 90 06/22/16 07:10 06/22/16 07:32 06/22/16 07:10 06/22/16 07:10 06/22/16 07:32 - General physical appearance well developed, well nourished, no distress - Eyes PERRL, normal ocular movement - ENT normal pinna, normal nares, normal mucosa, no congestion, decreased hearing, poor senior care - Head Head exam IM: Present: atraumatic, normal inspection, normocephalic - Neck no masses, no bruits, trachea midline - Cardiovascular Cardiovascular exam IM: Present: irregular rhythm, tachycardia - Respiratory absent breath sounds: right (Rhonchi and decreased air entry lung bases.) - Abdomen Abdomen: Present: soft, non tender, bowel sounds - Genitourinary Present: other (Catheter with clear urine) - Integumentary Present: other (Dry skin extremities with dytrophic reidged and fungal toe nails. No acute skin ulceration. ) Results - Labs 06/22/16 04:20 06/22/16 04:20 Abnormal lab results 06/21/16 06/21/16 06/21/16 Range/Units 08:15 20:25 20:25 RBC (4.50-5.90) M/mcL Hgb (13.5-16.5) g/dL Hct (41.0-55.0) % MCV (80.0-100.0) fL RDW (11.5-14.5) % Gran % (38.0-78.0) % Lymph % (Auto) (15.5-49.0) % Gran # (1.8-8.0) K/mcL Lymph # (1.5-4.8) K/mcL BUN (8-23) mg/dl Creatinine (0.7-1.2) mg/dl Glucose (70-105) mg/dL Calcium (8.6-10.4) mg/dl Phosphorus (2.7-4.5) mg/dL Troponin T 0.06 H* 0.04 H* (0-0.03) ng/ml NT-Pro-B Natriuret Pep 35188.0 H (0-450) pg/ml Total Protein (5.9-8.4) gm/dL Albumin (3.2-5.2) gm/dL Globulin (2.2-3.7) gm/dL 06/22/16 06/22/16 Range/Units 04:20 04:20 RBC 3.34 L (4.50-5.90) M/mcL Hgb 10.8 L (13.5-16.5) g/dL Hct 33.8 L (41.0-55.0) % MCV 101.2 H (80.0-100.0) fL RDW 14.7 H (11.5-14.5) % Gran % 93.8 H (38.0-78.0) % Lymph % (Auto) 2.2 L (15.5-49.0) % Gran # 9.7 H (1.8-8.0) K/mcL Lymph # 0.2 L (1.5-4.8) K/mcL BUN 27 H (8-23) mg/dl Creatinine 1.3 H (0.7-1.2) mg/dl Glucose 118 H (70-105) mg/dL Calcium 8.2 L (8.6-10.4) mg/dl Phosphorus 4.6 H (2.7-4.5) mg/dL Troponin T (0-0.03) ng/ml NT-Pro-B Natriuret Pep (0-450) pg/ml Total Protein 4.4 L (5.9-8.4) gm/dL Albumin 2.5 L (3.2-5.2) gm/dL Globulin 1.9 L (2.2-3.7) gm/dL Diabetes panel 06/22/16 Range/Units 04:20 Sodium 138 (133-145) mmol/L Potassium 3.7 (3.3-5.1) mmol/L Chloride 101 (96-108) mmol/L Carbon Dioxide 25 (22-30) mmol/L BUN 27 H (8-23) mg/dl Creatinine 1.3 H (0.7-1.2) mg/dl Glucose 118 H (70-105) mg/dL Calcium 8.2 L (8.6-10.4) mg/dl AST 15 (0-37) U/l ALT 11 (0-40) U/l Alkaline Phosphatase 68 (39-117) U/L Total Protein 4.4 L (5.9-8.4) gm/dL Albumin 2.5 L (3.2-5.2) gm/dL Triglycerides 51 (<150) mg/dl Calcium panel 06/22/16 Range/Units 04:20 Calcium 8.2 L (8.6-10.4) mg/dl Phosphorus 4.6 H (2.7-4.5) mg/dL Albumin 2.5 L (3.2-5.2) gm/dL Pituitary panel 06/22/16 Range/Units 04:20 Sodium 138 (133-145) mmol/L Potassium 3.7 (3.3-5.1) mmol/L Chloride 101 (96-108) mmol/L Carbon Dioxide 25 (22-30) mmol/L BUN 27 H (8-23) mg/dl Creatinine 1.3 H (0.7-1.2) mg/dl Glucose 118 H (70-105) mg/dL Calcium 8.2 L (8.6-10.4) mg/dl Adrenal panel 06/22/16 Range/Units 04:20 Sodium 138 (133-145) mmol/L Potassium 3.7 (3.3-5.1) mmol/L Chloride 101 (96-108) mmol/L Carbon Dioxide 25 (22-30) mmol/L BUN 27 H (8-23) mg/dl Creatinine 1.3 H (0.7-1.2) mg/dl Glucose 118 H (70-105) mg/dL Calcium 8.2 L (8.6-10.4) mg/dl Total Bilirubin 0.3 (0.0-1.0) mg/dL AST 15 (0-37) U/l ALT 11 (0-40) U/l Alkaline Phosphatase 68 (39-117) U/L Total Protein 4.4 L (5.9-8.4) gm/dL Albumin 2.5 L (3.2-5.2) gm/dL All other labs normal. Assessment and Plan (1) Skin abnormalities I agree with current ongoing medical management. Discussed with nursing staff about pressure ulcer prevention, change position q 2 hrly and inspect skin head to toe and apply moisturizing skin lotion to extremities from knees and elbows distally after cleansing with Hibiclens solution. Will follow this patient while he is in hospital. Status: Chronic Priority: Low
--- NOTE | 2016-06-22 08:33 | XRay Report ---
CLINICAL INFORMATION: Follow pneumonia COMPARISON: 06/21/2016 FINDINGS: Moderate cardiomegaly is unchanged. Mediastinum is unremarkable. The pulmonary vessels are now slightly distended and there is minimal interstitial edema. Moderate sized consolidated infiltrate in the left base is unchanged. Right basilar infiltrate has improved considerably and now small. Small left pleural effusion noted IMPRESSION: 1. No change in moderate consolidated left basilar infiltrate and effusion. 2. Small right basilar infiltrate - improved. 3. Mild CHF or volume overload - new Interpreted and Authenticated by: Hilton Aragon 06/22/16
[2016-06-22] MEDS ORDERED: FUROSEMIDE 20 MG/2 ML VIAL IV ONE (08:46)
[2016-06-22] MEDS ORDERED: AZITHROMYCIN 250 MG TABLET PO ONE (09:00)
[2016-06-22] MEDS: METOPROLOL SUCCINATE 25 MG TAB.XL.24H PO SCH ×2 (09:34→20:23)
[2016-06-22] MEDS: ASPIRIN 81 MG TAB.CHEW PO SCH (09:34)
[2016-06-22] MEDS: CLOPIDOGREL 75 MG TABLET PO SCH (09:35)
[2016-06-22] MEDS: OSELTAMIVIR PHOSPHATE 75 MG CAPSULE PO SCH ×2 (09:35→20:22)
[2016-06-22] MEDS: HEPARIN 5,000 UNIT/ML VIAL SQ SCH ×2 (09:35→20:23)
[2016-06-22] MEDS: CEFEPIME 1 GM in DEXTROSE 5% IN WATER 50 ML IV SCH ×2 (09:35→20:31)
[2016-06-22] MEDS: AZITHROMYCIN 250 MG TABLET PO SCH (09:38)
[2016-06-22] MEDS: VANCOMYCIN 1,000 MG in 0.9 % SODIUM CHLORIDE 250 ML IV SCH (10:28)
--- NOTE | 2016-06-22 10:30 | Echocardiogram Report ---
ECHOCARDIOGRAM: 2-D and M-mode echocardiography with cardiac Doppler and color flow imaging were performed with a [employer] A[employer]io MX. Indication is elevated troponin. Overall size of the four cardiac chambers and aortic root appeared normal as did LV wall thickness. Systolic performance appeared normal to vigorous. Estimated ejection fraction is 65-70%. The aortic valve appeared trileaflet and structurally normal for age. There was no evidence for aortic stenosis by Doppler interrogation. Aortic regurgitation, probably mild, (1+), was demonstrated. The mitral and tricuspid valves appeared unremarkable. Doppler interrogation of LV inflow disclosed normal ''e'' wave dominance and a normal early diastolic deceleration time. No more than trivial mitral regurgitation was noted. Pulmonary venous interrogation disclosed normal ''s'' wave dominance. The pulmonic valve was not visualized. Pulmonary artery acceleration time appeared normal. There was no evidence for pulmonic stenosis or pulmonic regurgitation. Tricuspid regurgitation, probably mild (1+), was demonstrated. No intracardiac shunting was appreciated. There is no evidence of pericardial effusion. The IVC was of normal diameter and showed mild respiratory variation. Calculated estimated PA systolic pressure was mildly to moderately elevated at 45 mmHg. Sinus rhythm, rate 85, was present. CONCLUSION:Aortic regurgitation, probably mild (1+). Mild to moderate pulmonary hypertension. Since previous study 05/20/2016, right heart pressures calculate higher. (See accompanying M-mode and Doppler reports for quantitation.) ECHOCARDIOGRAPHY M-MODE CALCULATIONS: HT: 70'' WT: 144 BSA: -- NORMALS AORTA: AORTIC ROOT 3.0 2.0-3.7 cm LEFT ATRIUM 3.1 1.9-4.0 cm MITRAL VALVE: EXCURSION 2.0 1.9-2.7 cm EPSS 0.2 <0.5 cm LT VENTRICLE: LVID (ED) -- 3.5-5.7 cm LVID (ES) -- SEPTAL THICKNESS -- 0.6-1.1 cm SEPTAL EXCURSION -- 0.3-0.8 cm LVPW THICKNESS -- 0.6-1.1 cm LVPW EXCURSION -- 0.9-1.4 cm MINOR AXIS FS -- 25%-40% RT VENTRICLE: RVID (ED) -- 0.9-2.6 cm(up to 3cm if LLD) QUALITATIVE DOPPLER FLOW STUDIES MITRAL VALVE MR, probably trivial AORTIC VALVE AR, probably mild (1+) TRICUSPID VALVE TR, probably mild (1+) PULMONIC VALVE -- QUANTITATIVE DOPPLER FLOW STUDIES SAMPLE SITES VELOCITIES PEAK PRESSURE VALVE AREA and/or VALVE WINDOW (PEAK,M/SEC) DROP (GRADIENT) PRESSURE HALF-TIME MV (Diastole) 0.8 0.6 -- -- MV (Systole) 4.2 -- -- AO (Diastole) 3.8 -- -- AO (Systole) 1.2 -- -- TV (Systole) 3.0 -- -- PV (Systole) 0.8 -- -- PV (Diastole) -- LWG:tahmina Job ID: [id number] Doc ID: [id number] Jaiden Lopez MD
--- NOTE | 2016-06-22 11:54 | Internal Med Progress Note ---
Medical - PN: Subj Patient information: Note initiated : 06/22/16 at 11:54 am Service Date, if different from initiated Date: [] Patient: Manas Nuñez 76 y/o M admitted on 06/20/16 for SOB, Low sats/ Septic Shock. Chief Complaint: [] Interval history: on service note. history of present illness:Mr. Nuñez is a 76 year old male who presented to the ER from a [place] after not feeling well/ weak x 2 days. The patient was hard of hearing, and unable to communicate well. 06/20: Pt admitted from [place] after not feeling well x 2 days, noted to be hypoxic, hypotensive in septic shock, X ray shows etienne infiltrates at the bases. He was admitted to the hospital for management of septic shock secondary to HCAP pneumonia. He was placed on vasopressin drip, BIPAP, IV vanco and cefepime, zithromax. Pt also had elevated troponin on admission and ST changes which seem to be old. 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 Right leg edema noted on exam, DVT scan pending. 06/21: Patient seen on bipap doing well this AM, saturating well on Fio2 40 percent. Not able to communicate well, but mental status is much better than last night. labs reviewed, trop repeat is 0.06, His WBC count improved from leucopenia to normal levels. His ABG reviwed, X ray done this AM shows worsening PNA, but clinically he is better. BP stable, will wean off pressors and bipap this AM and see how he does. Echo and Duplex lower extremities pending His breathing and air entry is much better this AM. Continue IV antibiotics Vanco/ Cefepime D2/ 7 today, Zithro D2/ 5 today. 06/22/16: overnight, the patient developed atrial fibrillation with rapid ventricular response. Over the course of the night he was given oral metoprolol XL, and 2 doses of IV metoprolol and 2 doses of IV digoxin. His heart rates were dipped for a while, and then bounced back up. He was also given IV fluids, as he was having frequent diarrhea, and there was concern about dehydration however, BNP sawyer quite a bit compared to admission, so now there is concern for possible volume overload. He has otherwise maintained fairly stable blood pressures and O2 saturation on oxygen via nasal cannula. He denies fever or chills,chest pain. He does have a moderate cough but does not complain a particular shortness of breath. He denies abdominal pain, nausea or vomiting He has been incontinent of urine since arrival, and Potter catheter was placed last night to help monitor fluid status. He does have a swollen right ankle which she has had since admission. Medical History ACS (acute coronary syndrome) (Acute) Acute interstitial pneumonia (Acute) COPD with acute exacerbation (Acute) Chronic kidney disease (CKD) (Acute) Non-ST elevation myocardial infarction (NSTEMI), type 2 (Acute) Pulmonary edema (Acute) Sepsis (Acute) Septic shock (Acute) Acute pain of right hip (Acute) Community acquired pneumonia (Acute) Dehydration (Acute) Fever, unknown origin (Acute) Nausea & vomiting (Acute) Urinary frequency (Acute) Urinary incontinence due to benign prostatic hyperplasia (Acute) Urinary retention due to benign prostatic hyperplasia (Acute) Weakness (Acute) Abscess of skin or subcutaneous tissue (Chronic) BPH without obstruction/lower urinary tract symptoms (Chronic) Bladder malignancy (Chronic) Cellulitis (Chronic) Cellulitis and abscess (Chronic 06/02/14) Cerebrovascular accident (Chronic) Cerebrovascular accident (CVA) (Chronic) Compressed vertebrae (Chronic) Creatinine elevation (Chronic 08/18/14) Dermatitis (Chronic) Eczema (Chronic) Edema (Chronic 08/18/14) Gastroesophageal reflux (Chronic) History of colonic polyps (Chronic) Hypertension, essential (Chronic) Hypokalemia (Chronic) Hyponatremia (Chronic) Hyposmolality and/or hyponatremia (Chronic 08/18/14) Open wound of lower limb (Chronic 06/02/14) Peripheral Vascular Disease (Chronic) UTI (urinary tract infection) (Chronic) Urinary retention (Chronic) Vascular headache (Chronic) Social history: [place] resident. - Constitutional Vitals: Vital Signs Temp Pulse Resp BP Pulse Ox 98.0 F 147 H 24 85/65 94 06/22/16 07:10 06/22/16 10:00 06/22/16 11:00 06/22/16 11:00 06/22/16 11:00 Period Temp Pulse Resp BP Sys/Alvarado Pulse Ox Last 24 Hr 96.6 F-98.8 F 65-149 10-28 85-133/44-87 90-97 Intake and Output 06/21/16 06/22/16 06/22/16 21:59 05:59 13:59 Intake Total 660 / 660 50 / 50 490 / 490 Output Total 653 / 653 175 / 175 61 / 61 Balance 7 / 7 -125 / -125 429 / 429 Weight 135 lb 9.6 oz Intake & Output: Intake & Output 06/21/16 06/22/16 06/22/16 21:59 05:59 13:59 Intake Total 660 / 660 50 / 50 490 / 490 Output Total 653 / 653 175 / 175 61 / 61 Balance 7 / 7 -125 / -125 429 / 429 Weight 135 lb 9.6 oz Intake: IV 100 / 100 50 / 50 50 / 50 Dextrose 5% in Water 50 50 / 50 50 / 50 ml @ 100 mls/hr IV Q12H NAHUN with Maxipime 1 gm Rx #:[id number] Sodium Chloride 0.9% 100 100 / 100 ml @ 100 mls/hr IV ONCE ONE with Vancomycin 500 mg Rx#:[id number] Oral 560 / 560 440 / 440 Output: Urine Catheter Amount 500 / 500 175 / 175 61 / 61 Void Amount 150 / 150 # of times incontinent of 3 / 3 urine Other: Meal Dinner Breakfast Percent of Meal Consumed 75% 100% Feeding Ability Needs Supervision Total Assistance Exam: on exam, this is a pleasant elderly man, who is extremely hard of hearing, but is able to read lips somewhat. He was drowsy when I saw him yesterday afternoon , as well as last evening, but this morning is awake and alert, and is eating breakfast without but his nurse. He does still have a cough but really does not complain about much.he denies fever or chills, sore throat chest pain or palpitations, shortness of breath abdominal pain or nausea or vomiting. His nurses do report several episodes of loose stools, which tested negative for C. difficile. Because of his ongoing incontinence, Potter catheter was placed last evening, to help monitor volume status. On reviewing his home medications,he was on atenolol at home, which had not been resumed here. Head is cephalic atraumatic. Neck exam does not show obvious JVD. Cardiac exam shows a rapidirregularly irregular rate. Lung exam: Shows coarse breath sounds throughout, with significant rhonchi and crackles in the right base.Abdomen is soft and nontender. Extremities show 2-3+ pitting edema around the right ankle, without firmness or redness.Neurologic exam: The patient's motor exam is grossly nonfocal. He does remain fairly confused most of the time, and is very hard of hearing. Medical - PN: Obj Da - Labs CBC & Chem 7: 06/22/16 04:20 06/22/16 04:20 Labs: Abnormal Lab Results 06/22/16 06/22/16 06/21/16 04:20 04:20 20:25 RBC 3.34 L Hgb 10.8 L Hct 33.8 L MCV 101.2 H RDW 14.7 H MPV Gran % 93.8 H Lymph % (Auto) 2.2 L Gran # 9.7 H Lymph # 0.2 L BUN 27 H Creatinine 1.3 H Glucose 118 H Calcium 8.2 L Phosphorus 4.6 H Magnesium Troponin T NT-Pro-B Natriuret Pep 98570.0 H Total Protein 4.4 L Albumin 2.5 L Globulin 1.9 L 06/21/16 06/21/16 06/21/16 20:25 08:15 04:35 RBC Hgb Hct MCV RDW MPV Gran % Lymph % (Auto) Gran # Lymph # BUN Creatinine Glucose 167 H Calcium 7.7 L Phosphorus Magnesium 1.5 L Troponin T 0.04 H* 0.06 H* NT-Pro-B Natriuret Pep Total Protein 4.1 L Albumin 2.4 L Globulin 1.7 L 06/21/16 04:35 RBC 3.42 L Hgb 11.2 L Hct 34.6 L MCV 101.4 H RDW 14.9 H MPV 7.1 L Gran % 89.5 H Lymph % (Auto) 6.1 L Gran # Lymph # 0.3 L BUN Creatinine Glucose Calcium Phosphorus Magnesium Troponin T NT-Pro-B Natriuret Pep Total Protein Albumin Globulin echocardiogram from June 21, 2016: Shows normal LV function, with ejection fraction of 65%. There is evidence for mild aortic regurgitation, and mild to moderate pulmonary hypertension. chest x-ray today shows continued bibasilar infiltrates, and evidence of mild pulmonary vascular congestion. Meds: Medications Acetaminophen (Tylenol) 650 mg PO Q4-6HP PRN PRN Reason: PAIN/FEVER > 101 Al Hydrox/Mg Hydrox/Simethicone (Maalox) 30 ml PO Q4-6HP PRN PRN Reason: Dyspepsia Albuterol Sulfate (Ventolin) 2.5 mg NEB Q4HP PRN PRN Reason: Shortness Of Breath Albuterol/Ipratropium (Duoneb) 3 ml NEB Q6HRT [facility] Last Admin: 06/22/16 07:31 Dose: 3 ml Aspirin (Aspirin) 81 mg PO QDAY [facility] Last Admin: 06/22/16 09:34 Dose: 81 mg Atorvastatin Calcium (Lipitor) 40 mg PO [facility] Last Admin: 06/21/16 21:21 Dose: 40 mg Azithromycin (Zithromax) 250 mg PO DAILY [facility] Stop: 06/24/16 09:01 Last Admin: 06/22/16 09:38 Dose: 250 mg Bisacodyl (Dulcolax) 10 mg OK Q2-3DAYS PRN PRN Reason: Constipation Clopidogrel Bisulfate (Plavix) 75 mg PO QDAY [facility] Last Admin: 06/22/16 09:35 Dose: 75 mg Famotidine (Pepcid) 20 mg IV [facility] Last Admin: 06/21/16 21:18 Dose: 20 mg Heparin Sodium (Porcine) (Heparin) 5,000 unit SQ Q12 [facility] Last Admin: 06/22/16 09:35 Dose: 5,000 unit Hydromorphone HCl (Dilaudid) 0.5 mg IV Q2HP PRN PRN Reason: Pain Last Admin: 06/21/16 23:18 Dose: 0.5 mg Sodium Chloride (Sodium Chloride 0.9%) 250 mls @ 20 mls/hr IV .[id number] [facility] Last Admin: 06/22/16 00:33 Dose: Not Given Cefepime HCl 1 gm/ Dextrose 50 mls @ 100 mls/hr IV Q12H [facility] Last Infusion: 06/22/16 10:27 Dose: Infused Vancomycin HCl 1,000 mg/ (Sodium Chloride) 250 mls @ 250 mls/hr IV Q24H [facility] Last Admin: 06/22/16 10:28 Dose: 250 mls/hr Vasopressin 20 unit/ Dextrose 100 mls @ 12 mls/hr IV Q8HP PRN; 0.04 UNIT/MIN PRN Reason: Hypotension Lorazepam (Ativan) 1 mg PO [facility] Last Admin: 06/21/16 21:17 Dose: 1 mg Methylprednisolone Sodium Succinate (Solu-Medrol) 62.5 mg IV Q8 [facility] Last Admin: 06/22/16 05:29 Dose: 62.5 mg Metoprolol Succinate (Toprol Xl) 12.5 mg PO BID [facility] Last Admin: 06/22/16 09:34 Dose: 12.5 mg Metoprolol Tartrate (Lopressor) 5 mg IV Q4HP PRN PRN Reason: Tachyarrhythmias Last Admin: 06/21/16 23:48 Dose: 5 mg Naloxone HCl (Narcan) 0.1 mg IV Q2MIN PRN PRN Reason: Opiate Reversal Ondansetron HCl (Zofran) 4 mg IV Q4-6HP PRN PRN Reason: Nausea And Vomiting Oseltamivir Phosphate (Tamiflu) 75 mg PO BID [facility] Stop: 06/25/16 21:01 Last Admin: 06/22/16 09:35 Dose: 75 mg Pantoprazole Sodium (Protonix) 40 mg PO QAMAC [facility] Last Admin: 06/22/16 06:52 Dose: 40 mg Senna (Senokot) 2 tab PO HSP PRN PRN Reason: Constipation Sodium Chloride (Saline Flush) 10 ml IV Q8 [facility] Last Admin: 06/22/16 10:28 Dose: 10 ml Vancomycin HCl (Vancomycin Per Pharmacy) 1 order IV UD [facility] Medical - PN: A/P - Time Spent With Patient Total time spent is greater than 50% in coordination of care (as documented) at patient's floor/unit and/or counseling patient: Greater than 35 minutes - Narrative A/P Narrative: #1. Infectious disease. this patient presented with septic shock and has responded nicely to IV fluids and IV antibiotics. Respiratory status has improved markedly, and he is weaned off of the BiPAP, and is now toleratingoxygen via nasal cannula. He has been weaned off of vasopressin, although blood pressure remains a bit borderline at this time. left base infiltrate is reported as improving on his chest x-ray. continue azithromycin, cefepime, and vancomycin. -complete course of Tamiflu for suspected influenza. #2. Cardiac. -The patient developed atrial fibrillation overnight,and was given numerous medications to try to get his rate under better control. His rate continues to be quite variable, although right at the moment, while he is asleep, it is below 110. Because of suspected underlying CHF, he was started on metoprolol XL , instead of his home atenolol. This seems to be keeping his blood pressure lower as well. -chest x-ray is suggestive of mild pulmonary vascular congestion, but echocardiogram shows normal LV function, and does not suggestwall motion abnormalities, in spite of his recently increased troponins. Once his blood pressure rebounds a bit, I will try pushing the Lasix a bit harder, to see if diuresing himhelps settle the atrial fibrillation down. Troponin from around midnight was lower than the previous, at 0.04. -ontinue aspirin and atorvastatin, Plavix #3. Renal. Patient has a history of chronic kidney disease. reatinine appears to be at baseline today,at 1.3. Now that he has a Potter catheter, we will be monitoring urine output more closely. #4. Reported history of COPD. -He is doing well on low flow oxygen. continue steroids and bronchodilators. continue incentive spirometry. #5. GI. -Continue Pepcid and PPI.for GI prophylaxis. #6. DVT prophylaxis: Continue subcutaneous heparin. #7. CODE STATUS: DNR. [id number] minuteswas spent during the night as well as this morning, interviewing and examining the patient, revealing frequent test results, conferring with nursing staff, and vital signs,and writing orders. Medical - PN: Qual - VTE Deep Vein Thrombosis/Pulmonary Embolism Present on Admission: Yes
[2016-06-22] MEDS ORDERED: FUROSEMIDE 100 MG/10 ML VIAL IV ONE (13:35)
--- NOTE | 2016-06-22 14:29 | Ultrasound Report ---
CLINICAL INFORMATION: Edema COMPARISON: None. FINDINGS: The entire deep venous system including the common femoral, superficial femoral, popliteal and paired trifurcation calf veins are easily compressible and show normal venous blood flow on color and spectral Doppler. No evidence of thrombus IMPRESSION: Negative exam - no evidence of deep vein thrombosis. Interpreted and Authenticated by: Hilton Aragon 06/22/16
[2016-06-22] MEDS: DILTIAZEM 125 MG in 0.9 % SODIUM CHLORIDE 100 ML IV SCH (18:24)
[2016-06-22] MEDS: LORazepam 1 MG TABLET PO SCH (20:23)
[2016-06-22] MEDS: ATORVASTATIN 20 MG TABLET PO SCH (20:23)
[2016-06-22] MEDS: FAMOTIDINE/PF 20 MG/2 ML VIAL IV SCH (20:24)
[2016-06-23] MEDS: IPRATROPIUM/ALBUTEROL 3 ML AMPUL.NEB NEB SCH ×2 (00:45→07:28)
[2016-06-23] MEDS: METOPROLOL TARTRATE 5 MG/5 ML VIAL IV PRN (01:00)
[2016-06-23] MEDS ORDERED: DILTIAZEM 125 MG/25 ML VIAL IV ONE (01:22)
[2016-06-23] MEDS: 0.9 % SODIUM CHLORIDE 250 ML IV SCH ×3 (01:31→22:10)
[2016-06-23] MEDS ORDERED: LORazepam 2 MG/ML VIAL IV ONE ×2 (01:49→20:46)
[2016-06-23] MEDS ORDERED: LORazepam 2 MG/ML VIAL ONE ×3 (01:52→20:35)
[2016-06-23] MEDS: DILTIAZEM 125 MG in 0.9 % SODIUM CHLORIDE 100 ML IV SCH ×2 (02:36→12:09)
[2016-06-23] MEDS ORDERED: FUROSEMIDE 100 MG/10 ML VIAL IV ONE ×2 (03:08→03:10)
[2016-06-23 05:31] LABS: Basophils # (Auto) 0 K/mcL (0.0-0.3); Basophils % (Auto) 0 % (0.0-2.0); Eosinophils # (Auto) 0 K/mcL (0.0-0.7); Eosinophils % (Auto) 0 % (0.0-7.0); Granulocytes % (Auto) 97.3 % (38.0-78.0); Lymphocytes # (Auto) 0.1 K/mcL (1.5-4.8); Lymphocytes % (Auto) 0.8 % (15.5-49.0); Mean Cell Volume 99.8 fL (80.0-100.0); Mean Corpuscular HGB Conc 32.3 g/dL (31.0-36.0); Mean Corpuscular Hemoglobin 32.3 pg (26.0-34.0); Monocytes # (Auto) 0.2 K/mcL (0.1-0.9); Monocytes % (Auto) 1.9 % (1.0-9.0); Platelet Count 192 K/mcL (140-440); RBC 3.28 M/mcL (4.50-5.90); Red Cell Distribution Width 15.2 % (11.5-14.5)
[2016-06-23] MEDS: methylPREDNISolone SOD SUCC 125 MG/2 ML VIAL IV SCH ×3 (06:00→22:38)
[2016-06-23] MEDS: 0.9 % SODIUM CHLORIDE 10 ML SYRINGE IV SCH ×4 (06:01→22:39)
[2016-06-23 06:41] LABS: ALT/SGPT 17 U/l (0-40); Albumin 2.3 gm/dL (3.2-5.2); Albumin/Globulin Ratio 0.8 (1.0-2.3); Alkaline Phosphatase 118 U/L (39-117); Bilirubin,Direct < 0.2 mg/dL (0.0-0.3); Blood Urea Nitrogen 51 mg/dl (8-23); Gamma Glutamyl Transpeptidase 32 U/L (8-61); Magnesium 2.4 mg/dL (1.6-2.5); Uric Acid 8.6 mg/dL (2.5-8.0)
[2016-06-23] MEDS ORDERED: POTASSIUM CHLORIDE 40 MEQ in DEXTROSE 5% IN WATER 500 ML IV ONE (08:00)
[2016-06-23] MEDS: CEFEPIME 1 GM in DEXTROSE 5% IN WATER 50 ML IV SCH (09:21)
[2016-06-23] MEDS: METOPROLOL SUCCINATE 25 MG TAB.XL.24H PO SCH ×2 (09:22→21:27)
[2016-06-23] MEDS: ASPIRIN 81 MG TAB.CHEW PO SCH (09:22)
[2016-06-23] MEDS: AZITHROMYCIN 250 MG TABLET PO SCH (09:22)
[2016-06-23] MEDS: HEPARIN 5,000 UNIT/ML VIAL SQ SCH ×2 (09:22→22:38)
[2016-06-23] MEDS: PANTOPRAZOLE 40 MG TABLET PO SCH (09:22)
[2016-06-23] MEDS: CLOPIDOGREL 75 MG TABLET PO SCH (09:23)
[2016-06-23] MEDS: OSELTAMIVIR PHOSPHATE 75 MG CAPSULE PO SCH (09:25)
--- NOTE | 2016-06-23 10:57 | Internal Med Progress Note ---
Medical - PN: Subj Patient information: Note initiated : 06/23/16 at 10:56 am Service Date, if different from initiated Date: [] Patient: Manas Nuñez 76 y/o M admitted on 06/20/16 for SOB, Low sats/ Septic Shock. Chief Complaint: [] Interval history: 06/20/16:history of present illness:Mr. Nuñez is a 76 year old male who presented to the ER from a [facility] after not feeling well/ weak x 2 days. The patient was hard of hearing, and unable to communicate well. 06/20: Pt admitted from [place] after not feeling well x 2 days, noted to be hypoxic, hypotensive in septic shock, X ray shows etienne infiltrates at the bases. He was admitted to the hospital for management of septic shock secondary to HCAP pneumonia. He was placed on vasopressin drip, BIPAP, IV vanco and cefepime, zithromax. Pt also had elevated troponin on admission and ST changes which seem to be old. 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 Right leg edema noted on exam, DVT scan pending. 06/21: Patient seen on bipap doing well this AM, saturating well on Fio2 40 percent. Not able to communicate well, but mental status is much better than last night. labs reviewed, trop repeat is 0.06, His WBC count improved from leucopenia to normal levels. His ABG reviwed, X ray done this AM shows worsening PNA, but clinically he is better. BP stable, will wean off pressors and bipap this AM and see how he does. Echo and Duplex lower extremities pending His breathing and air entry is much better this AM. Continue IV antibiotics Vanco/ Cefepime D2/ 7 today, Zithro D2/ 5 today. 06/22/16: overnight, the patient developed atrial fibrillation with rapid ventricular response. Over the course of the night he was given oral metoprolol XL, and 2 doses of IV metoprolol and 2 doses of IV digoxin. His heart rates were dipped for a while, and then bounced back up. He was also given IV fluids, as he was having frequent diarrhea, and there was concern about dehydration however, BNP sawyer quite a bit compared to admission, so now there is concern for possible volume overload. He has otherwise maintained fairly stable blood pressures and O2 saturation on oxygen via nasal cannula. He denies fever or chills,chest pain. He does have a moderate cough but does not complain a particular shortness of breath. He denies abdominal pain, nausea or vomiting He has been incontinent of urine since arrival, and Potter catheter was placed last night to help monitor fluid status. He does have a swollen right ankle which she has had since admission. 06/23/16: overnight the patient continued to have episodes of atrial fibrillation with rapid response. He was eventually placed on a diltiazem drip in addition to the oral metoprolol. He has some increased shortness of breath and agitation during the night, and was ultimately given Ativan and put back on BiPAP. Since then his heart rate has come down into the 60-90 range, and he appears to be in a flutter with variable block. he was quite somnolent this morning, presumably due to the Ativan he got during the night. Later in the morning he was more awake, but his speech was still quite thick, and he was difficult to understand. Nursing staff notes that his POA was here earlier today,and the patient told him that he is tired of all the treatment, and may want to not continue with aggressive treatment. otherwise, the patient is currently on oxygen at 3 L via nasal cannula, and is maintaining his O2 saturations at 96%. He seems to deny fever or chills. He seems to deny shortness of breath,but he does appear to be working a little harder to breathe. He has received several doses of Lasix over the last several days, and urine output is reasonable. Unfortunately, BUN/creatinine are slowly rising. the patient appears to deny chest pain or palpitations, abdominal pain, nausea or vomiting. He Continues to have occasional loose stools. I met with his POA later this afternoon,and he informed me thatthe patient today stated he was tired and just wanted to go home. However the patient is also still quite groggy from the Ativan he received during the night. His POA is actually his cousin, and he reports to me that the patient has a long- standing history of severe PTSD and night terrors - Constitutional Vitals: Vital Signs Temp Pulse Resp BP Pulse Ox 98.2 F 128 H 25 H 108/62 96 06/23/16 08:00 06/23/16 09:30 06/23/16 09:30 06/23/16 09:00 06/23/16 09:30 Period Temp Pulse Resp BP Sys/Alvarado Pulse Ox Last 24 Hr 97.0 F-99.3 F 64-149 16-27 85-128/35-82 85-100 Intake and Output 06/22/16 06/23/16 06/23/16 21:59 05:59 13:59 Intake Total 1205 / 1205 170 / 170 129 / 129 Output Total 460 / 460 960 / 960 350 / 350 Balance 745 / 745 -790 / -790 -221 / -221 Weight 138 lb 1.6 oz Intake & Output: Intake & Output 06/22/16 06/23/16 06/23/16 21:59 05:59 13:59 Intake Total 1205 / 1205 170 / 170 129 / 129 Output Total 460 / 460 960 / 960 350 / 350 Balance 745 / 745 -790 / -790 -221 / -221 Weight 138 lb 1.6 oz Intake: IV 5 / 5 170 / 170 129 / 129 Sodium Chloride 0.9% 250 13 / 13 ml @ 20 mls/hr IV . [id number] NAHUN Rx#:[id number] Dextrose 5% in Water 50 50 / 50 50 / 50 ml @ 100 mls/hr IV Q12H NAHUN with Maxipime 1 gm Rx #:[id number] Cardizem 125 mg In Sodium 5 / 5 120 / 120 66 / 66 Chloride 0.9% 100 ml @ 5 MG/HR 5 mls/hr IV Q12H NAHUN Rx#:[id number] Oral 1200 / 1200 Output: Urine Catheter Amount 460 / 460 960 / 960 350 / 350 Other: Meal Lunch Percent of Meal Consumed 100% Feeding Ability Needs Supervision Exam: the patient is awake, but appears groggy, and speech is somewhat slurred. neck shows no obvious JVD or lymphadenopathy. Cardiac exam shows fairly regular rhythm at this time with what looks like a flutter on his heart monitor. Rate is controlled. Lungs:Has fairly coarse breath sounds throughout, with lots of rhonchi and rales at the right base Abdomen is soft and nontender. Extremities: Right ankle continues to show 3+ pitting edema, and left ankle looks normal. Neurologic: The patient is rather somnolent at this time, and I believe that due to the Ativan he received overnight. Medical - PN: Obj Da - Labs CBC & Chem 7: 06/23/16 04:16 06/23/16 04:16 Labs: Abnormal Lab Results 06/23/16 06/23/16 06/23/16 09:10 04:16 04:16 WBC 11.4 H RBC 3.28 L Hgb 10.6 L Hct 32.8 L MCV RDW 15.2 H MPV Gran % 97.3 H Lymph % (Auto) 0.8 L Gran # 11.1 H Lymph # 0.1 L Potassium 3.2 L BUN 51 H Creatinine 2.0 H Glucose 117 H Uric Acid 8.6 H Calcium Phosphorus Magnesium Alkaline Phosphatase 118 H Troponin T NT-Pro-B Natriuret Pep Total Protein 5.1 L Albumin 2.3 L Globulin Albumin/Globulin Ratio 0.8 L Vancomycin Trough 21.8 H* 06/22/16 06/22/16 06/21/16 04:20 04:20 20:25 WBC RBC 3.34 L Hgb 10.8 L Hct 33.8 L MCV 101.2 H RDW 14.7 H MPV Gran % 93.8 H Lymph % (Auto) 2.2 L Gran # 9.7 H Lymph # 0.2 L Potassium BUN 27 H Creatinine 1.3 H Glucose 118 H Uric Acid Calcium 8.2 L Phosphorus 4.6 H Magnesium Alkaline Phosphatase Troponin T NT-Pro-B Natriuret Pep 11118.0 H Total Protein 4.4 L Albumin 2.5 L Globulin 1.9 L Albumin/Globulin Ratio Vancomycin Trough 06/21/16 06/21/16 06/21/16 20:25 08:15 04:35 WBC RBC Hgb Hct MCV RDW MPV Gran % Lymph % (Auto) Gran # Lymph # Potassium BUN Creatinine Glucose 167 H Uric Acid Calcium 7.7 L Phosphorus Magnesium 1.5 L Alkaline Phosphatase Troponin T 0.04 H* 0.06 H* NT-Pro-B Natriuret Pep Total Protein 4.1 L Albumin 2.4 L Globulin 1.7 L Albumin/Globulin Ratio Vancomycin Trough 06/21/16 04:35 WBC RBC 3.42 L Hgb 11.2 L Hct 34.6 L MCV 101.4 H RDW 14.9 H MPV 7.1 L Gran % 89.5 H Lymph % (Auto) 6.1 L Gran # Lymph # 0.3 L Potassium BUN Creatinine Glucose Uric Acid Calcium Phosphorus Magnesium Alkaline Phosphatase Troponin T NT-Pro-B Natriuret Pep Total Protein Albumin Globulin Albumin/Globulin Ratio Vancomycin Trough echocardiogram from June 21, 2016: Shows normal LV function, with ejection fraction of 65%. There is evidence for mild aortic regurgitation, and mild to moderate pulmonary hypertension. chest x-ray 06/22/16 shows continued bibasilar infiltrates, and evidence of mild pulmonary vascular congestion. 06/22/16: Lower extremity Doppler shows no evidence of DVT. Meds: Medications Acetaminophen (Tylenol) 650 mg PO Q4-6HP PRN PRN Reason: PAIN/FEVER > 101 Al Hydrox/Mg Hydrox/Simethicone (Maalox) 30 ml PO Q4-6HP PRN PRN Reason: Dyspepsia Albuterol Sulfate (Ventolin) 2.5 mg NEB Q4HP PRN PRN Reason: Shortness Of Breath Albuterol/Ipratropium (Duoneb) 3 ml NEB Q6HRT [facility] Last Admin: 06/23/16 07:28 Dose: Not Given Aspirin (Aspirin) 81 mg PO QDAY [facility] Last Admin: 06/23/16 09:22 Dose: 81 mg Atorvastatin Calcium (Lipitor) 40 mg PO HS [facility] Last Admin: 06/22/16 20:23 Dose: 40 mg Azithromycin (Zithromax) 250 mg PO DAILY [facility] Stop: 06/24/16 09:01 Last Admin: 06/23/16 09:22 Dose: 250 mg Bisacodyl (Dulcolax) 10 mg DE Q2-3DAYS PRN PRN Reason: Constipation Clopidogrel Bisulfate (Plavix) 75 mg PO QDAY [facility] Last Admin: 06/23/16 09:23 Dose: 75 mg Famotidine (Pepcid) 20 mg IV HS [facility] Last Admin: 06/22/16 20:24 Dose: 20 mg Heparin Sodium (Porcine) (Heparin) 5,000 unit SQ Q12 [facility] Last Admin: 06/23/16 09:22 Dose: 5,000 unit Hydromorphone HCl (Dilaudid) 0.5 mg IV Q2HP PRN PRN Reason: Pain Last Admin: 06/21/16 23:18 Dose: 0.5 mg Sodium Chloride (Sodium Chloride 0.9%) 250 mls @ 20 mls/hr IV .[id number] [facility] Last Infusion: 06/23/16 06:40 Dose: 10 mls/hr Cefepime HCl 1 gm/ Dextrose 50 mls @ 100 mls/hr IV Q12H [facility] Last Infusion: 06/23/16 10:00 Dose: Infused Vasopressin 20 unit/ Dextrose 100 mls @ 12 mls/hr IV Q8HP PRN; 0.04 UNIT/MIN PRN Reason: Hypotension Diltiazem HCl 125 mg/ Sodium (Chloride) 125 mls @ 5 mls/hr IV Q12H [facility]; 5 MG/HR PRN Reason: Protocol Last Titration: 06/23/16 07:00 Dose: 10 mg/hr, 10 mls/hr Potassium Chloride 40 meq/ (Dextrose) 520 mls @ 130 mls/hr IV ONCE ONE Stop: 06/23/16 11:59 Last Admin: 06/23/16 10:00 Dose: 130 mls/hr Lorazepam (Ativan) 1 mg PO HS [facility] Last Admin: 06/22/16 20:23 Dose: 1 mg Methylprednisolone Sodium Succinate (Solu-Medrol) 62.5 mg IV Q8 [facility] Last Admin: 06/23/16 06:00 Dose: 62.5 mg Metoprolol Succinate (Toprol Xl) 12.5 mg PO BID [facility] Last Admin: 06/23/16 09:22 Dose: 12.5 mg Metoprolol Tartrate (Lopressor) 5 mg IV Q4HP PRN PRN Reason: Tachyarrhythmias Last Admin: 06/23/16 01:00 Dose: 5 mg Naloxone HCl (Narcan) 0.1 mg IV Q2MIN PRN PRN Reason: Opiate Reversal Ondansetron HCl (Zofran) 4 mg IV Q4-6HP PRN PRN Reason: Nausea And Vomiting Oseltamivir Phosphate (Tamiflu) 75 mg PO BID [facility] Stop: 06/25/16 21:01 Last Admin: 06/23/16 09:25 Dose: 75 mg Pantoprazole Sodium (Protonix) 40 mg PO QAMAC [facility] Last Admin: 06/23/16 09:22 Dose: 40 mg Senna (Senokot) 2 tab PO HSP PRN PRN Reason: Constipation Sodium Chloride (Saline Flush) 10 ml IV Q8 [facility] Last Admin: 06/23/16 09:21 Dose: 10 ml Vancomycin HCl (Vancomycin Per Pharmacy) 1 order IV UD [facility] Medical - PN: A/P - Time Spent With Patient Total time spent is greater than 50% in coordination of care (as documented) at patient's floor/unit and/or counseling patient: - Narrative A/P Narrative: #1. Infectious disease. this patient presented with septic shock and has responded nicely to IV fluids and IV antibiotics. Respiratory status has improved , although he did have some increased chest congestion last evening. He has been placed back on BiPAP last night and again later this morning, to give him some rest. however he is able to maintain his O2 saturations just try a nasal cannula at low flow oxygen. -He continues to have a left base infiltrate, but the right base is clearing. unfortunately, white blood cell count is a bit higher today, for unclear reasons. He is certainly at risk for recurrent aspiration. He continues on azithromycin, cefepime, vancomycin for healthcare associated pneumonia. -he does not appear to have influenza,o I will discontinue the Tamiflu, to avoid any potential side effects. #2. Cardiac. -The patient developed atrial fibrillation ,and was given numerous medications to try to get his rate under better control. we ultimately added a diltiazem drip, and he did drop down into a rate of 70s and 80s overnight. Currently he appears to have an irregular rhythm, which at times looks like a flutter with variable block, and at other times like a wandering pacemaker. Diltiazem drip is being decreased from 10 mg to 5 mg per hour. We are also up titrating his Toprol-XL. -Lungs continue to sound a bit on the wet side. He does respond nicely to Lasix with diuresis, so we will continue with this. -chest x-ray is suggestive of mild pulmonary vascular congestion, but echocardiogram shows normal LV function, and does not suggest wall motion abnormalities, in spite of his recently increased troponins. -Continue aspirin and atorvastatin, Plavix #3. Renal. Patient has a history of chronic kidney disease. BUN/creatinine have risen with diuresis, but I will continue to follow for now. I am hopeful that renal perfusion will improve now that his heart rate has settled down. -Continue Potter catheter for volume status monitoring. -hypokalemia is likely due to the Lasix, and will be replaced IV and by mouth. #4. pulmonary-Reported history of COPD. -He is doing well on low flow oxygen. continue steroids and bronchodilators. continue incentive spirometry.BiPAP when necessary. I discontinued the duo nebs, and switch to plain albuterol, as it does not appear he was on ipratropium at home, and this may be contributing to his cardiac arrhythmias. #5. GI. -Continue PPI for GI prophylaxis. #6. DVT prophylaxis: Continue subcutaneous heparin. #7. CODE STATUS: DNR. I had a long discussion with his POA today. I think we ultimately agreed that we will put offany decision about withdrawing care, until the patient is more awake and alert and can participate in the discussion. At this time, I think it is reasonable to pursue aggressive treatment of his pneumonia and address his heart rhythm issues and kidney function. As long as he is responding to treatment, I think it is reasonable to continue to try. If, however, at some point the patient decides he wants to withdraw care, we can certainly change our plan. approximately 40 minutes was spent so far today, reviewing patient's test results, reviewing his plan of care with staff, interviewing and examining him, and then having a prolonged discussion with his POA this afternoon. Medical - PN: Qual - VTE Deep Vein Thrombosis/Pulmonary Embolism Present on Admission: Yes
[2016-06-23] MEDS ORDERED: METOPROLOL SUCCINATE 25 MG TAB.XL.24H PO ONE (11:53)
[2016-06-23] MEDS: ALBUTEROL SULFATE 2.5 MG/3 ML NEBULIZER NEB SCH ×3 (14:54→23:39)
--- NOTE | 2016-06-23 17:31 | General Surgery Progress Note ---
Subjective Patient reports: other (Saw patient and reviewd progress with [place] RN in ICU and hospitalist physician. ) Narrative: Note initiated : 06/23/16 at 5:29 pm Service Date, if different from initiated Date: [] Patient: Manas Nuñez 76 y/o M admitted on 06/20/16 for SOB, Low sats/ Septic Shock. Chief Complaint: [] Objective Temp Pulse Resp BP Pulse Ox 97.8 F 77 21 121/52 99 06/23/16 16:00 06/23/16 15:00 06/23/16 16:00 06/23/16 16:00 06/23/16 16:00 Reviewed hospitalist input and agree. No opne skin wounds and pressure points precautions protection and off loading is on schedule. - Additional Data Intake & Output - Last 24 hours: Intake & Output 06/21/16 06/22/16 06/23/16 06/24/16 05:59 05:59 05:59 05:59 Intake Total 890 / 3040 1170 / 1170 2115 / 2115 940 / 940 Output Total 2 / 2 828 / 828 1485 / 1485 895 / 895 Balance 888 / 3038 342 / 342 630 / 630 45 / 45 Weight 134 lb 6.4 oz 135 lb 9.6 oz 138 lb 1.6 oz - Labs 06/23/16 04:16 06/23/16 04:16 Diabetes panel 06/23/16 Range/Units 04:16 Sodium 136 (133-145) mmol/L Potassium 3.2 L (3.3-5.1) mmol/L Chloride 97 (96-108) mmol/L Carbon Dioxide 23 (22-30) mmol/L BUN 51 H (8-23) mg/dl Creatinine 2.0 H (0.7-1.2) mg/dl Glucose 117 H (70-105) mg/dL Calcium 8.7 (8.6-10.4) mg/dl AST 22 (0-37) U/l ALT 17 (0-40) U/l Alkaline Phosphatase 118 H (39-117) U/L Total Protein 5.1 L (5.9-8.4) gm/dL Albumin 2.3 L (3.2-5.2) gm/dL Triglycerides 78 (<150) mg/dl Calcium panel 06/23/16 Range/Units 04:16 Calcium 8.7 (8.6-10.4) mg/dl Phosphorus 4.0 (2.7-4.5) mg/dL Albumin 2.3 L (3.2-5.2) gm/dL Pituitary panel 06/23/16 Range/Units 04:16 Sodium 136 (133-145) mmol/L Potassium 3.2 L (3.3-5.1) mmol/L Chloride 97 (96-108) mmol/L Carbon Dioxide 23 (22-30) mmol/L BUN 51 H (8-23) mg/dl Creatinine 2.0 H (0.7-1.2) mg/dl Glucose 117 H (70-105) mg/dL Calcium 8.7 (8.6-10.4) mg/dl Adrenal panel 06/23/16 Range/Units 04:16 Sodium 136 (133-145) mmol/L Potassium 3.2 L (3.3-5.1) mmol/L Chloride 97 (96-108) mmol/L Carbon Dioxide 23 (22-30) mmol/L BUN 51 H (8-23) mg/dl Creatinine 2.0 H (0.7-1.2) mg/dl Glucose 117 H (70-105) mg/dL Calcium 8.7 (8.6-10.4) mg/dl Total Bilirubin 0.2 (0.0-1.0) mg/dL AST 22 (0-37) U/l ALT 17 (0-40) U/l Alkaline Phosphatase 118 H (39-117) U/L Total Protein 5.1 L (5.9-8.4) gm/dL Albumin 2.3 L (3.2-5.2) gm/dL Medical - PN: A/P - Time Spent With Patient Total time spent is greater than 50% in coordination of care (as documented) at patient's floor/unit and/or counseling patient: No developments form wound care point of view. Nothing to add. Will follow intermittently or on PRN basis. less than 15 minutes (1) Skin abnormalities Status: Chronic Current Visit: Yes
[2016-06-23] MEDS ORDERED: LORazepam 2 MG/ML VIAL IV PRN (20:48)
[2016-06-23] MEDS ORDERED: traZODone HCL 50 MG TABLET PO PRN (21:00)
[2016-06-23] MEDS: LORazepam 1 MG TABLET PO SCH (21:27)
[2016-06-23] MEDS: ATORVASTATIN 20 MG TABLET PO SCH (21:27)
[2016-06-24] MEDS: 0.9 % SODIUM CHLORIDE 250 ML IV SCH ×2 (03:25→20:40)
[2016-06-24] MEDS: ALBUTEROL SULFATE 2.5 MG/3 ML NEBULIZER NEB SCH ×4 (03:27→14:20)
[2016-06-24] MEDS: DILTIAZEM 125 MG in 0.9 % SODIUM CHLORIDE 100 ML IV SCH ×2 (03:27→06:36)
[2016-06-24] MEDS: VANCOMYCIN 1,000 MG in 0.9 % SODIUM CHLORIDE 250 ML IV SCH (03:33)
[2016-06-24 05:52] LABS: Basophils # (Auto) 0 K/mcL (0.0-0.3); Basophils % (Auto) 0 % (0.0-2.0); Eosinophils # (Auto) 0 K/mcL (0.0-0.7); Eosinophils % (Auto) 0 % (0.0-7.0); Granulocytes % (Auto) 97.3 % (38.0-78.0); Lymphocytes # (Auto) 0.1 K/mcL (1.5-4.8); Lymphocytes % (Auto) 1.1 % (15.5-49.0); Mean Cell Volume 98.4 fL (80.0-100.0); Mean Corpuscular HGB Conc 32.2 g/dL (31.0-36.0); Mean Corpuscular Hemoglobin 31.7 pg (26.0-34.0); Monocytes # (Auto) 0.2 K/mcL (0.1-0.9); Monocytes % (Auto) 1.6 % (1.0-9.0); Platelet Count 197 K/mcL (140-440); Red Cell Distribution Width 14.9 % (11.5-14.5)
[2016-06-24] MEDS: 0.9 % SODIUM CHLORIDE 10 ML SYRINGE IV SCH ×3 (05:52→22:34)
[2016-06-24] MEDS: methylPREDNISolone SOD SUCC 125 MG/2 ML VIAL IV SCH ×2 (05:54→14:42)
[2016-06-24 06:07] LABS: Blood Urea Nitrogen 60 mg/dl (8-23); Uric Acid 12.1 mg/dL (2.5-8.0)
[2016-06-24 06:08] LABS: ALT/SGPT 80 U/l (0-40); Albumin 2.4 gm/dL (3.2-5.2); Albumin/Globulin Ratio 0.8 (1.0-2.3); Alkaline Phosphatase 385 U/L (39-117); Bilirubin,Direct < 0.2 mg/dL (0.0-0.3); Gamma Glutamyl Transpeptidase 243 U/L (8-61); Magnesium 2.5 mg/dL (1.6-2.5); Phosphorous 3.8 mg/dL (2.7-4.5)
[2016-06-24] MEDS: PANTOPRAZOLE 40 MG TABLET PO SCH (07:33)
[2016-06-24] MEDS: FUROSEMIDE 40 MG/4 ML VIAL IV SCH ×2 (07:34→16:20)
[2016-06-24] MEDS ORDERED: POTASSIUM CHLORIDE 10 MEQ TABLET PO SCH (08:00)
[2016-06-24] MEDS ORDERED: CEFEPIME 1 GM in DEXTROSE 5% IN WATER 50 ML IV SCH (09:00)
[2016-06-24] MEDS: ASPIRIN 81 MG TAB.CHEW PO SCH (09:11)
[2016-06-24] MEDS: CLOPIDOGREL 75 MG TABLET PO SCH (09:11)
[2016-06-24] MEDS: AZITHROMYCIN 250 MG TABLET PO SCH (09:11)
[2016-06-24] MEDS: METOPROLOL SUCCINATE 25 MG TAB.XL.24H PO SCH (09:11)
[2016-06-24] MEDS: HEPARIN 5,000 UNIT/ML VIAL SQ SCH (09:12)
[2016-06-24] MEDS ORDERED: DILTIAZEM 125 MG in 0.9 % SODIUM CHLORIDE 100 ML IV PRN (10:23)
--- NOTE | 2016-06-24 13:30 | Internal Med Progress Note ---
Medical - PN: Subj Patient information: Note initiated : 06/24/16 at 1:30 pm Service Date, if different from initiated Date: [] Patient: Manas Nuñez 76 y/o M admitted on 06/20/16 for SOB, Low sats/ Septic Shock. Chief Complaint: [] Interval history: 06/20/16:history of present illness:Mr. Nuñez is a 76 year old male who presented to the ER from a [facility] after not feeling well/ weak x 2 days. The patient was hard of hearing, and unable to communicate well. 06/20: Pt admitted from [facility] after not feeling well x 2 days, noted to be hypoxic, hypotensive in septic shock, X ray shows etienne infiltrates at the bases. He was admitted to the hospital for management of septic shock secondary to HCAP pneumonia. He was placed on vasopressin drip, BIPAP, IV vanco and cefepime, zithromax. Pt also had elevated troponin on admission and ST changes which seem to be old. 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 Right leg edema noted on exam, DVT scan pending. 06/21: Patient seen on bipap doing well this AM, saturating well on Fio2 40 percent. Not able to communicate well, but mental status is much better than last night. labs reviewed, trop repeat is 0.06, His WBC count improved from leucopenia to normal levels. His ABG reviwed, X ray done this AM shows worsening PNA, but clinically he is better. BP stable, will wean off pressors and bipap this AM and see how he does. Echo and Duplex lower extremities pending His breathing and air entry is much better this AM. Continue IV antibiotics Vanco/ Cefepime D2/ 7 today, Zithro D2/ 5 today. 06/22/16: overnight, the patient developed atrial fibrillation with rapid ventricular response. Over the course of the night he was given oral metoprolol XL, and 2 doses of IV metoprolol and 2 doses of IV digoxin. His heart rates were dipped for a while, and then bounced back up. He was also given IV fluids, as he was having frequent diarrhea, and there was concern about dehydration however, BNP sawyer quite a bit compared to admission, so now there is concern for possible volume overload. He has otherwise maintained fairly stable blood pressures and O2 saturation on oxygen via nasal cannula. He denies fever or chills,chest pain. He does have a moderate cough but does not complain a particular shortness of breath. He denies abdominal pain, nausea or vomiting He has been incontinent of urine since arrival, and Potter catheter was placed last night to help monitor fluid status. He does have a swollen right ankle which she has had since admission. 06/23/16: overnight the patient continued to have episodes of atrial fibrillation with rapid response. He was eventually placed on a diltiazem drip in addition to the oral metoprolol. He has some increased shortness of breath and agitation during the night, and was ultimately given Ativan and put back on BiPAP. Since then his heart rate has come down into the 60-90 range, and he appears to be in a flutter with variable block. he was quite somnolent this morning, presumably due to the Ativan he got during the night. Later in the morning he was more awake, but his speech was still quite thick, and he was difficult to understand. Nursing staff notes that his POA was here earlier today,and the patient told him that he is tired of all the treatment, and may want to not continue with aggressive treatment. otherwise, the patient is currently on oxygen at 3 L via nasal cannula, and is maintaining his O2 saturations at 96%. He seems to deny fever or chills. He seems to deny shortness of breath,but he does appear to be working a little harder to breathe. He has received several doses of Lasix over the last several days, and urine output is reasonable. Unfortunately, BUN/creatinine are slowly rising. the patient appears to deny chest pain or palpitations, abdominal pain, nausea or vomiting. He Continues to have occasional loose stools. I met with his POA later this afternoon,and he informed me that the patient today stated he was tired and just wanted to go home. However the patient is also still quite groggy from the Ativan he received during the night. 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 O2 saturations declined precipitously. he did not improve much with being placed back on the BiPAP mask and turning the FiO2 up, so I did speak with his POA who stated that he would prefer that we keep the patient comfortable, rather than pursue more aggressive testing and treatment. The patient was given IV morphine and IV Ativan, and she did calm down, and his O2 saturations eventually came back up to about 90%. this morning he is calm again,but still somewhat confused and sedated. His friend is here,and he told her several times that he just wants to go home. She believes that he means go to [facility], although he could also mean go back to his nursing facility. he was awake enough earlier to ask for breakfast, and did eat part of that. he is currently quite somnolent, and is unable to answer any questions for me - Constitutional Vitals: Vital Signs Temp Pulse Resp BP Pulse Ox 97.5 F L 89 18 124/58 94 06/24/16 08:00 06/24/16 11:44 06/24/16 11:44 06/24/16 11:00 06/24/16 11:00 Period Temp Pulse Resp BP Sys/Alvarado Pulse Ox Last 24 Hr 96.8 F-99.2 F 74-89 15-30 104-153/50-93 86-100 Intake and Output 06/23/16 06/24/16 06/24/16 21:59 05:59 13:59 Intake Total 615 / 615 214 / 214 120 / 120 Output Total 665 / 665 510 / 510 930 / 930 Balance -50 / -50 -296 / -296 -810 / -810 Weight 133 lb 9.6 oz 133 lb 9.6 oz Patient Weight 06/25/16 06:59 Weight 133 lb 9.6 oz Intake & Output: Intake & Output 06/23/16 06/24/16 06/24/16 21:59 05:59 13:59 Intake Total 615 / 615 214 / 214 120 / 120 Output Total 665 / 665 510 / 510 930 / 930 Balance -50 / -50 -296 / -296 -810 / -810 Weight 133 lb 9.6 oz 133 lb 9.6 oz Intake: IV 615 / 615 214 / 214 Sodium Chloride 0.9% 250 208 / 208 ml @ 20 mls/hr IV . [id number] [facility] Rx#:[id number] Cardizem 125 mg In Sodium 95 / 95 6 / 6 Chloride 0.9% 100 ml @ 5 MG/HR 5 mls/hr IV Q12H [facility] Rx#:[id number] Dextrose 5% in Water 500 520 / 520 ml @ 130 mls/hr IV ONCE ONE with Potassium Chloride 40 [facility] Rx#: [id number] Oral 120 / 120 Output: Urine Catheter Amount 665 / 665 510 / 510 930 / 930 Other: Meal Breakfast Percent of Meal Consumed 25% Feeding Ability Total Assistance Exam: on exam, he is quite somnolent, and will not open his eyes for me. Cardiac exam shows a slightly irregular rhythm. Lungs: He continues to have rales and rhonchi at the right base, but the remainder of the lung newman are fairly clear. diminished soft, with active bowel sounds. Extremities: Continue to show significant edema of the right ankle, but the left is without edema. Neurologic exam: The patient does not really respond to me this morning, but was awake enough earlier to request food and to interact with his friend. Medical - PN: Obj Da - Labs CBC & Chem 7: 06/24/16 04:30 06/24/16 04:30 Labs: Abnormal Lab Results 06/24/16 06/24/16 06/24/16 09:04 04:30 04:30 WBC RBC 3.50 L Hgb 11.1 L Hct 34.4 L MCV RDW 14.9 H Gran % 97.3 H Lymph % (Auto) 1.1 L Gran # 9.7 H Lymph # 0.1 L Potassium BUN 60 H Creatinine 2.4 H Glucose 121 H Uric Acid 12.1 H Calcium Phosphorus GGT 243 H AST 99 H ALT 80 H Alkaline Phosphatase 385 H Troponin T NT-Pro-B Natriuret Pep Total Protein 5.4 L Albumin 2.4 L Globulin Albumin/Globulin Ratio 0.8 L Vancomycin Trough 18.1 H 06/23/16 06/23/16 06/23/16 09:10 04:16 04:16 WBC 11.4 H RBC 3.28 L Hgb 10.6 L Hct 32.8 L MCV RDW 15.2 H Gran % 97.3 H Lymph % (Auto) 0.8 L Gran # 11.1 H Lymph # 0.1 L Potassium 3.2 L BUN 51 H Creatinine 2.0 H Glucose 117 H Uric Acid 8.6 H Calcium Phosphorus GGT AST ALT Alkaline Phosphatase 118 H Troponin T NT-Pro-B Natriuret Pep Total Protein 5.1 L Albumin 2.3 L Globulin Albumin/Globulin Ratio 0.8 L Vancomycin Trough 21.8 H* 06/22/16 06/22/16 06/21/16 04:20 04:20 20:25 WBC RBC 3.34 L Hgb 10.8 L Hct 33.8 L MCV 101.2 H RDW 14.7 H Gran % 93.8 H Lymph % (Auto) 2.2 L Gran # 9.7 H Lymph # 0.2 L Potassium BUN 27 H Creatinine 1.3 H Glucose 118 H Uric Acid Calcium 8.2 L Phosphorus 4.6 H GGT AST ALT Alkaline Phosphatase Troponin T NT-Pro-B Natriuret Pep 75572.0 H Total Protein 4.4 L Albumin 2.5 L Globulin 1.9 L Albumin/Globulin Ratio Vancomycin Trough 06/21/16 20:25 WBC RBC Hgb Hct MCV RDW Gran % Lymph % (Auto) Gran # Lymph # Potassium BUN Creatinine Glucose Uric Acid Calcium Phosphorus GGT AST ALT Alkaline Phosphatase Troponin T 0.04 H* NT-Pro-B Natriuret Pep Total Protein Albumin Globulin Albumin/Globulin Ratio Vancomycin Trough echocardiogram from June 21, 2016: Shows normal LV function, with ejection fraction of 65%. There is evidence for mild aortic regurgitation, and mild to moderate pulmonary hypertension. chest x-ray 06/22/16 shows continued bibasilar infiltrates, and evidence of mild pulmonary vascular congestion. 06/22/16: Lower extremity Doppler shows no evidence of DVT. Meds: Medications Acetaminophen (Tylenol) 650 mg PO Q4-6HP PRN PRN Reason: PAIN/FEVER > 101 Al Hydrox/Mg Hydrox/Simethicone (Maalox) 30 ml PO Q4-6HP PRN PRN Reason: Dyspepsia Albuterol Sulfate (Ventolin) 2.5 mg NEB Q4HP PRN PRN Reason: Shortness Of Breath Albuterol Sulfate (Ventolin) 2.5 mg NEB Q4HRT [facility] Last Admin: 06/24/16 11:44 Dose: 2.5 mg Aspirin (Aspirin) 81 mg PO QDAY [facility] Last Admin: 06/24/16 09:11 Dose: 81 mg Atorvastatin Calcium (Lipitor) 40 mg PO HS [facility] Last Admin: 06/23/16 21:27 Dose: Not Given Bisacodyl (Dulcolax) 10 mg NH Q2-3DAYS PRN PRN Reason: Constipation Clopidogrel Bisulfate (Plavix) 75 mg PO QDAY [facility] Last Admin: 06/24/16 09:11 Dose: 75 mg Furosemide (Lasix) 40 mg IV BIDD [facility] Last Admin: 06/24/16 07:34 Dose: 40 mg Heparin Sodium (Porcine) (Heparin) 5,000 unit SQ Q12 [facility] Last Admin: 06/24/16 09:12 Dose: 5,000 unit Hydromorphone HCl (Dilaudid) 0.5 mg IV Q2HP PRN PRN Reason: Pain Last Admin: 06/21/16 23:18 Dose: 0.5 mg Sodium Chloride (Sodium Chloride 0.9%) 250 mls @ 20 mls/hr IV .[id number] [facility] Last Admin: 06/24/16 03:25 Dose: 10 mls/hr Vasopressin 20 unit/ Dextrose 100 mls @ 12 mls/hr IV Q8HP PRN; 0.04 UNIT/MIN PRN Reason: Hypotension Cefepime HCl 1 gm/ Dextrose 50 mls @ 100 mls/hr IV DAILY [facility] Last Admin: 06/24/16 09:12 Dose: 100 mls/hr Diltiazem HCl 125 mg/ Sodium (Chloride) 125 mls @ 5 mls/hr IV Q12HP PRN; Protocol; 5 MG/HR PRN Reason: Tachyarrhythmias Vancomycin HCl 1,000 mg/ (Sodium Chloride) 250 mls @ 250 mls/hr IV Q48H [facility] Lorazepam (Ativan) [address] [facility] Last Admin: 06/23/16 21:27 Dose: Not Given Lorazepam (Ativan) 0.5 mg IV Q1H PRN PRN Reason: ANXIETY/SEDATION Last Admin: 06/24/16 00:03 Dose: 0.5 mg Methylprednisolone Sodium Succinate (Solu-Medrol) 62.5 mg IV Q8 [facility] Last Admin: 06/24/16 05:54 Dose: 62.5 mg Metoprolol Succinate (Toprol Xl) 12.5 mg PO BID [facility] Last Admin: 06/24/16 09:11 Dose: 12.5 mg Metoprolol Tartrate (Lopressor) 5 mg IV Q4HP PRN PRN Reason: Tachyarrhythmias Last Admin: 06/23/16 01:00 Dose: 5 mg Morphine Sulfate (Morphine) 1 mg IV Q30M PRN PRN Reason: Shortness Of Breath Last Admin: 06/24/16 00:03 Dose: 1 mg Naloxone HCl (Narcan) 0.1 mg IV Q2MIN PRN PRN Reason: Opiate Reversal Ondansetron HCl (Zofran) 4 mg IV Q4-6HP PRN PRN Reason: Nausea And Vomiting [facility] Admin: 06/24/16 07:33 Dose: Not Given Potassium Chloride (Kdur) 10 meq PO [facility] Senna (Senokot) 2 tab PO [facility] PRN PRN Reason: Constipation Sodium Chloride (Saline Flush) 10 ml IV Q8 [facility] Last Admin: 06/24/16 05:52 Dose: 10 ml Trazodone HCl (Desyrel) 50 mg PO [facility] PRN PRN Reason: Anxiety Vancomycin HCl (Vancomycin Per Pharmacy) 1 order IV [facility] [place] - PN: A/P - Time Spent With Patient Total time spent is greater than 50% in coordination of care (as documented) at patient's floor/unit and/or counseling patient: - Narrative A/P Narrative: #1. Infectious disease. this patient presented with septic shock and has responded nicely to IV fluids and IV antibiotics. respiratory status improved rather quickly with BiPAP and IV antibiotics and nebulizers, but he is now having intermittent episodes of declining respiratory function over the last 2-3 nights. On x-ray he has had some clearing of his right base but not on the left side. He may be continuing to aspirate. He continues on triple antibiotics for healthcare associated pneumonia. -white blood cell count is somewhat improved today. #2. Cardiac. -The patient developed atrial fibrillation ,and was given numerous medications to try to get his rate under better control. we ultimately added a diltiazem drip, and he did drop down into a rate of 70s and 80s. his heart rate has been generally below 90 since yesterday. Cardizem drip was weaned off last night. Oral Toprol was increased. Chest x-ray has been suggestive of pulmonary vascular congestion, so he has been given Lasix intermittently to maintain his urine output. he has diuresed almost 2 L over the last 2 days. -chest x-ray is suggestive of mild pulmonary vascular congestion, but echocardiogram shows normal LV function, and does not suggest wall motion abnormalities, in spite of his recently increased troponins. -Continue aspirin and atorvastatin, Plavix. #3. Renal. Patient has a history of chronic kidney disease. BUN/creatinine have risen with diuresis, but I will continue to follow for now. -renal function is gradually declining again. -Continue Potter catheter for volume status monitoring. -hypokalemia is likely due to the Lasix, and will be replaced IV and by mouth. #4. pulmonary-Reported history of COPD. -respiratory status has been quite labile over the last 2 days. It is the general feeling of myself and the staff that he is on a downward spiral. I discussed with his POA last night, and his friend today,that it is looking more likely that he will not survive his pneumonia. The friend is reminding me that he hasnight terrors that tend to make him quite agitated at night, even at home. This certainly may be contributing to the issues at night. However he has become generally less responsive over the last 24 hours, and he has verbalized wanting to stop aggressive treatment. I will try to touch base with his POA again today, and see if he could have a further discussion with the patient about his desires. I think we could certainly consider moving to comfort care here, or if the patient would really prefer to return to his nursing facility, we could try to arrange that as well -continue steroids and bronchodilators. continue incentive spirometry.BiPAP when necessary. -I discontinued the duo nebs, and switch to plain albuterol, as it does not appear he was on ipratropium at home, and this may be contributing to his cardiac arrhythmias. #5. GI. -Continue PPI for GI prophylaxis. #6. DVT prophylaxis: Continue subcutaneous heparin. #7. CODE STATUS: DNR. see discussion under pulmonary. this visit is taken approximately 35 minutes today, to review patient's test results, examined him, review plan of care with staff as well as with his friend , and I expect to discuss things with his POA again today as well addendum: I did meet with the patient's POA again this evening, and after talking with the patient,they would like us to move him to comfort care. He had some questions about what this involved. All questions were answered. We will stop all medications except those which likely offer some comfort. We can certainly continue to offer oxygen and BiPAP as needed. Medical - PN: Qual - VTE Deep Vein Thrombosis/Pulmonary Embolism Present on Admission: Yes
[2016-06-24] MEDS ORDERED: LACTOPEROXI/GLUC OXID/POT THIO 1 EACH GEL..EA. TOPICAL PRN ×2 (16:51→20:26)
[2016-06-24] MEDS ORDERED: ALBUTEROL SULFATE 2.5 MG/3 ML NEBULIZER NEB PRN ×2 (16:51→20:26)
[2016-06-24] MEDS ORDERED: LORazepam 2 MG/ML VIAL IV PRN ×2 (16:51→20:26)
[2016-06-24] MEDS ORDERED: ONDANSETRON ODT 4 MG TABLET SL PRN (16:51)
[2016-06-24] MEDS: HYDROmorphone 2 MG/ML SYRINGE IV PRN (16:55)
[2016-06-24] MEDS ORDERED: ACETAMINOPHEN 325 MG TABLET PO PRN (20:26)
[2016-06-24] MEDS ORDERED: SENNOSIDES 1 TABLET PO PRN (20:26)
[2016-06-24] MEDS ORDERED: ONDANSETRON 4 MG/2 ML VIAL IV PRN (20:26)
[2016-06-24] MEDS ORDERED: BISACODYL 10 MG SUPP.RECT PR PRN (20:26)
[2016-06-24] MEDS ORDERED: MAG HYDROX/AL HYDROX/SIMETH 30 ML ORAL.SUSP PO PRN (20:26)
[2016-06-24] MEDS ORDERED: traZODone HCL 50 MG TABLET PO PRN (20:26)
[2016-06-24] MEDS ORDERED: NALOXONE HCL 0.4 MG/ML VIAL IV PRN (20:26)
[2016-06-24] MEDS ORDERED: 0.9 % SODIUM CHLORIDE 10 ML SYRINGE IV SCH ×2 (22:00)
[2016-06-25] MEDS: LORazepam 2 MG/ML VIAL IV PRN ×2 (00:07→09:59)
[2016-06-25] MEDS ORDERED: VANCOMYCIN 1,000 MG in 0.9 % SODIUM CHLORIDE 250 ML IV SCH (10:00)
[2016-06-25] MEDS: morphine 20 MG/ML ORAL.CONC PO PRN ×4 (13:54→22:41)
--- NOTE | 2016-06-25 14:01 | Internal Med Progress Note ---
Medical - PN: Subj Patient information: Note initiated : 06/25/16 at 2:01 pm Service Date, if different from initiated Date: [] Patient: Manas Nuñez 76 y/o M admitted on 06/20/16 for SOB, Low sats/ Septic Shock. Chief Complaint: [] Interval history: 06/20/16:history of present illness:Mr. Nuñez is a 76 year old male who presented to the ER from a [facility] after not feeling well/ weak x 2 days. The patient was hard of hearing, and unable to communicate well. 06/20: Pt admitted from [facility] after not feeling well x 2 days, noted to be hypoxic, hypotensive in septic shock, X ray shows etienne infiltrates at the bases. He was admitted to the hospital for management of septic shock secondary to HCAP pneumonia. He was placed on vasopressin drip, BIPAP, IV vanco and cefepime, zithromax. Pt also had elevated troponin on admission and ST changes which seem to be old. He likely has type 2 [place]. Right leg edema noted on exam, DVT scan pending. 06/21: Patient seen on bipap doing well this AM, saturating well on Fio2 40 percent. Not able to communicate well, but mental status is much better than last night. labs reviewed, trop repeat is 0.06, His WBC count improved from leucopenia to normal levels. His ABG reviwed, X ray done this AM shows worsening PNA, but clinically he is better. BP stable, will wean off pressors and bipap this AM and see how he does. Echo and Duplex lower extremities pending His breathing and air entry is much better this AM. Continue IV antibiotics Vanco/ Cefepime D2/ 7 today, Zithro D2/ 5 today. 06/22/16: overnight, the patient developed atrial fibrillation with rapid ventricular response. Over the course of the night he was given oral metoprolol XL, and 2 doses of IV metoprolol and 2 doses of IV digoxin. His heart rates were dipped for a while, and then bounced back up. He was also given IV fluids, as he was having frequent diarrhea, and there was concern about dehydration however, BNP sawyer quite a bit compared to admission, so now there is concern for possible volume overload. He has otherwise maintained fairly stable blood pressures and O2 saturation on oxygen via nasal cannula. He denies fever or chills,chest pain. He does have a moderate cough but does not complain a particular shortness of breath. He denies abdominal pain, nausea or vomiting He has been incontinent of urine since arrival, and Potter catheter was placed last night to help monitor fluid status. He does have a swollen right ankle which she has had since admission. 06/23/16: overnight the patient continued to have episodes of atrial fibrillation with rapid response. He was eventually placed on a diltiazem drip in addition to the oral metoprolol. He has some increased shortness of breath and agitation during the night, and was ultimately given Ativan and put back on BiPAP. Since then his heart rate has come down into the 60-90 range, and he appears to be in a flutter with variable block. he was quite somnolent this morning, presumably due to the Ativan he got during the night. Later in the morning he was more awake, but his speech was still quite thick, and he was difficult to understand. Nursing staff notes that his POA was here earlier today,and the patient told him that he is tired of all the treatment, and may want to not continue with aggressive treatment. otherwise, the patient is currently on oxygen at 3 L via nasal cannula, and is maintaining his O2 saturations at 96%. He seems to deny fever or chills. He seems to deny shortness of breath,but he does appear to be working a little harder to breathe. He has received several doses of Lasix over the last several days, and urine output is reasonable. Unfortunately, BUN/creatinine are slowly rising. the patient appears to deny chest pain or palpitations, abdominal pain, nausea or vomiting. He Continues to have occasional loose stools. I met with his POA later this afternoon,and he informed me that the patient today stated he was tired and just wanted to go home. However the patient is also still quite groggy from the Ativan he received during the night. 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 O2 saturations declined precipitously. he did not improve much with being placed back on the BiPAP mask and turning the FiO2 up, so I did speak with his POA who stated that he would prefer that we keep the patient comfortable, rather than pursue more aggressive testing and treatment. The patient was given IV morphine and IV Ativan, and she did calm down, and his O2 saturations eventually came back up to about 90%. this morning he is calm again,but still somewhat confused and sedated. His friend is here,and he told her several times that he just wants to go home. She believes that he means go to [facility], although he could also mean go back to his nursing facility. he was awake enough earlier to ask for breakfast, and did eat part of that. he is currently quite somnolent, and is unable to answer any questions for me. 06/25/16:Last evening, I did meet again with the patient's POA, and we all agreed that the patient seems to be requesting comfort care at this point. therefore all of his normal orders were discontinued, and comfort care orders were written. He has been awake for brief periods, but for the most part is fairly somnolent, and does not seem to have significant dyspnea at this time. his IV infiltrated, and his family did not want another IV started.oxygen levels are reassuring from high 80s to high 90s.heart rate is ranging from about 100-130. the patient does not wake upto speak with me during my exam today. His sister- in-law is sitting with him this morning. - Constitutional Vitals: Vital Signs Temp Pulse Resp BP Pulse Ox 98.0 F 133 H 24 142/84 91 06/24/16 19:00 06/24/16 23:19 06/24/16 23:19 06/24/16 19:00 06/24/16 23:19 Period Temp Pulse Resp BP Sys/Alvarado Pulse Ox Last 24 Hr 98.0 F 84-133 19-24 140-153/74-88 91-98 Intake and Output 06/25/16 06/25/16 06/25/16 05:59 13:59 21:59 Output Total Balance Weight Intake & Output: Intake & Output 06/25/16 06/25/16 06/25/16 05:59 13:59 21:59 Output Total Balance Weight Output: Urine Catheter Amount Exam: on exam, he is quite somnolent, and does not respond to my voice. Cardiac exam shows an irregularly irregular rhythm. Lungs: Exam is suboptimal, but breath sounds are fairly clear in the upper lobes , and decreased at the bases. Abdomen is soft. Extremities show no significant changes. Neurologic: Patient is fairly obtunded. Medical - PN: Obj Da - Labs CBC & Chem 7: 06/24/16 04:30 06/24/16 04:30 Labs: Abnormal Lab Results 06/24/16 06/24/16 06/24/16 09:04 04:30 04:30 WBC RBC 3.50 L Hgb 11.1 L Hct 34.4 L RDW 14.9 H Gran % 97.3 H Lymph % (Auto) 1.1 L Gran # 9.7 H Lymph # 0.1 L Potassium BUN 60 H Creatinine 2.4 H Glucose 121 H Uric Acid 12.1 H GGT 243 H AST 99 H ALT 80 H Alkaline Phosphatase 385 H Total Protein 5.4 L Albumin 2.4 L Albumin/Globulin Ratio 0.8 L Vancomycin Trough 18.1 H 06/23/16 06/23/16 06/23/16 09:10 04:16 04:16 WBC 11.4 H RBC 3.28 L Hgb 10.6 L Hct 32.8 L RDW 15.2 H Gran % 97.3 H Lymph % (Auto) 0.8 L Gran # 11.1 H Lymph # 0.1 L Potassium 3.2 L BUN 51 H Creatinine 2.0 H Glucose 117 H Uric Acid 8.6 H GGT AST ALT Alkaline Phosphatase 118 H Total Protein 5.1 L Albumin 2.3 L Albumin/Globulin Ratio 0.8 L Vancomycin Trough 21.8 H* echocardiogram from June 21, 2016: Shows normal LV function, with ejection fraction of 65%. There is evidence for mild aortic regurgitation, and mild to moderate pulmonary hypertension. chest x-ray 06/22/16 shows continued bibasilar infiltrates, and evidence of mild pulmonary vascular congestion. 06/22/16: Lower extremity Doppler shows no evidence of DVT. Meds: Medications Acetaminophen (Tylenol) 650 mg PO Q4-6HP PRN PRN Reason: PAIN/FEVER > 101 Al Hydrox/Mg Hydrox/Simethicone (Maalox) 30 ml PO Q4-6HP PRN PRN Reason: Dyspepsia Albuterol Sulfate (Ventolin) 2.5 mg NEB Q2HP PRN PRN Reason: Shortness Of Breath Bisacodyl (Dulcolax) 10 mg RI Q2-3DAYS PRN PRN Reason: Constipation Glucose Oxid/Lactoperoxid/Muramidas (Biotene) 1 each TOPICAL PRN PRN PRN Reason: Dry Mouth Morphine Sulfate (Morphine) 0 mg IV Q1HP PRN PRN Reason: Pain Last Admin: 06/25/16 00:48 Dose: 2 mg Morphine Sulfate (Morphine) 4 mg NEB Q4HP PRN PRN Reason: Shortness Of Breath Morphine Sulfate (Morphine) 2.5 - 5 mg PO Q2HP PRN PRN Reason: Dyspnea Naloxone HCl (Narcan) 0.1 mg IV Q2MIN PRN PRN Reason: Opiate Reversal Ondansetron HCl (Zofran) 4 mg IV Q4-6HP PRN PRN Reason: Nausea And Vomiting Senna (Senokot) 2 tab PO HSP PRN PRN Reason: Constipation Sodium Chloride (Saline Flush) 10 ml IV Q8 NAHUN Last Admin: 06/24/16 22:34 Dose: 10 ml Trazodone HCl (Desyrel) 50 mg PO HSP PRN PRN Reason: Anxiety Medical - PN: A/P - Time Spent With Patient Total time spent is greater than 50% in coordination of care (as documented) at patient's floor/unit and/or counseling patient: - Narrative A/P Narrative: #1. Disposition: The patient was transitioned to comfort care last evening, per his request. He seems to be fairly comfortable since then. He is being given when necessary morphine and Ativan. He did lose his IV, so oral solutions were ordered. Unfortunately we do not have oral liquid Ativan in stock, but the pharmacist is working on getting some from a local pharmacy. I don't expect him to live very long, now that we have stopped antibiotics for his pneumonia. #1.5 Infectious disease. this patient presented with septic shock and has responded nicely to IV fluids and IV antibiotics. respiratory status improved rather quickly with BiPAP and IV antibiotics and nebulizers, but he is now having intermittent episodes of declining respiratory function over the last 2-3 nights. On x-ray he has had some clearing of his right base but not on the left side. He may be continuing to aspirate. #2. Cardiac. -The patient developed atrial fibrillation ,and was given numerous medications to try to get his rate under better control. we ultimately added a diltiazem drip, and he did drop down into a rate of 70s and 80s. his heart rate has been generally below 90 since yesterday. Chest x-ray has been suggestive of pulmonary vascular congestion, so he has been given Lasix intermittently to maintain his urine output. he has diuresed almost 2 L over the last 2 days. -chest x-ray is suggestive of mild pulmonary vascular congestion, but echocardiogram shows normal LV function, and does not suggest wall motion abnormalities, in spite of his recently increased troponins. #3. Renal. Patient has a history of chronic kidney disease. . -renal function is gradually declining again. -Continue Potter catheter for comfort. #4. pulmonary-Reported history of COPD. -respiratory status has been quite labile over the last 2 days. It is the general feeling of myself and the staff that he is on a downward spiral. I discussed with his POA last night, and his friend today,that it is looking more likely that he will not survive his pneumonia. The friend is reminding me that he hasnight terrors that tend to make him quite agitated at night, even at home. This certainly may be contributing to the issues at night. However he has become generally less responsive over the last 24 hours, and he has verbalized wanting to stop aggressive treatment. #5. GI. -food will be offered if requested. #6. DVT prophylaxis: heparin has been discontinued. #7. CODE STATUS: DNR. see discussion under pulmonary. this visit is taken approximately 30 minutes today, to review patient's test results, examined him, review plan of care with staff . Medical - PN: Qual - VTE Deep Vein Thrombosis/Pulmonary Embolism Present on Admission: Yes
[2016-06-25] MEDS: LORazepam 2 MG/ML ORAL.SOL PO PRN ×2 (16:00→18:03)
[2016-06-25] MEDS: 0.9 % SODIUM CHLORIDE 10 ML SYRINGE IV SCH ×2 (18:36→18:37)
[2016-06-26] MEDS: LORazepam 2 MG/ML ORAL.SOL PO PRN ×7 (01:33→22:47)
[2016-06-26] MEDS: morphine 20 MG/ML ORAL.CONC PO PRN ×3 (01:33→14:58)
--- NOTE | 2016-06-26 17:22 | Internal Med Progress Note ---
Medical - PN: Subj Patient information: Note initiated : 06/26/16 at 5:19 pm Service Date, if different from initiated Date: [] Patient: Manas Nuñez 76 y/o M admitted on 06/20/16 for SOB, Low sats/ Septic Shock. Chief Complaint: [] Interval history: 06/20/16:history of present illness:Mr. Nuñez is a 76 year old male who presented to the ER from a [place] after not feeling well/ weak x 2 days. The patient was hard of hearing, and unable to communicate well. 06/20: Pt admitted from [place] after not feeling well x 2 days, noted to be hypoxic, hypotensive in septic shock, X ray shows etienne infiltrates at the bases. He was admitted to the hospital for management of septic shock secondary to HCAP pneumonia. He was placed on vasopressin drip, BIPAP, IV vanco and cefepime, zithromax. Pt also had elevated troponin on admission and ST changes which seem to be old. He likely has type 2 [place]. Right leg edema noted on exam, DVT scan pending. 06/21: Patient seen on bipap doing well this AM, saturating well on Fio2 40 percent. Not able to communicate well, but mental status is much better than last night. labs reviewed, trop repeat is 0.06, His WBC count improved from leucopenia to normal levels. His ABG reviwed, X ray done this AM shows worsening PNA, but clinically he is better. BP stable, will wean off pressors and bipap this AM and see how he does. Echo and Duplex lower extremities pending His breathing and air entry is much better this AM. Continue IV antibiotics Vanco/ Cefepime D2/ 7 today, Zithro D2/ 5 today. 06/22/16: overnight, the patient developed atrial fibrillation with rapid ventricular response. Over the course of the night he was given oral metoprolol XL, and 2 doses of IV metoprolol and 2 doses of IV digoxin. His heart rates were dipped for a while, and then bounced back up. He was also given IV fluids, as he was having frequent diarrhea, and there was concern about dehydration however, BNP sawyer quite a bit compared to admission, so now there is concern for possible volume overload. He has otherwise maintained fairly stable blood pressures and O2 saturation on oxygen via nasal cannula. He denies fever or chills,chest pain. He does have a moderate cough but does not complain a particular shortness of breath. He denies abdominal pain, nausea or vomiting He has been incontinent of urine since arrival, and Potter catheter was placed last night to help monitor fluid status. He does have a swollen right ankle which she has had since admission. 06/23/16: overnight the patient continued to have episodes of atrial fibrillation with rapid response. He was eventually placed on a diltiazem drip in addition to the oral metoprolol. He has some increased shortness of breath and agitation during the night, and was ultimately given Ativan and put back on BiPAP. Since then his heart rate has come down into the 60-90 range, and he appears to be in a flutter with variable block. he was quite somnolent this morning, presumably due to the Ativan he got during the night. Later in the morning he was more awake, but his speech was still quite thick, and he was difficult to understand. Nursing staff notes that his POA was here earlier today,and the patient told him that he is tired of all the treatment, and may want to not continue with aggressive treatment. otherwise, the patient is currently on oxygen at 3 L via nasal cannula, and is maintaining his O2 saturations at 96%. He seems to deny fever or chills. He seems to deny shortness of breath,but he does appear to be working a little harder to breathe. He has received several doses of Lasix over the last several days, and urine output is reasonable. Unfortunately, BUN/creatinine are slowly rising. the patient appears to deny chest pain or palpitations, abdominal pain, nausea or vomiting. He Continues to have occasional loose stools. I met with his POA later this afternoon,and he informed me that the patient today stated he was tired and just wanted to go home. However the patient is also still quite groggy from the Ativan he received during the night. 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 O2 saturations declined precipitously. he did not improve much with being placed back on the BiPAP mask and turning the FiO2 up, so I did speak with his POA who stated that he would prefer that we keep the patient comfortable, rather than pursue more aggressive testing and treatment. The patient was given IV morphine and IV Ativan, and she did calm down, and his O2 saturations eventually came back up to about 90%. this morning he is calm again,but still somewhat confused and sedated. His friend is here,and he told her several times that he just wants to go home. She believes that he means go to [facility], although he could also mean go back to his nursing facility. he was awake enough earlier to ask for breakfast, and did eat part of that. he is currently quite somnolent, and is unable to answer any questions for me. 06/25/16:Last evening, I did meet again with the patient's POA, and we all agreed that the patient seems to be requesting comfort care at this point. therefore all of his normal orders were discontinued, and comfort care orders were written. He has been awake for brief periods, but for the most part is fairly somnolent, and does not seem to have significant dyspnea at this time. his IV infiltrated, and his family did not want another IV started.oxygen levels are reassuring from high 80s to high 90s.heart rate is ranging from about 100-130. the patient does not wake upto speak with me during my exam today. His sister- in-law is sitting with him this morning. 06/26 Pt seen examined, family by bedside, pt non verbal, his vitals are borderline, low oxygen sats since AM, He does not appear to be in pain or distress. Patient is in comfort care. Impending . Pertinent ROS: unable. - Constitutional Vitals: Vital Signs Temp Pulse Resp BP Pulse Ox 98.0 F 110 H 24 142/84 75 L 06/24/16 19:00 06/25/16 20:43 06/25/16 20:43 06/24/16 19:00 06/26/16 10:19 Period Temp Pulse Resp BP Sys/Alvarado Pulse Ox Last 24 Hr 110 24-26 74-91 Intake and Output 06/26/16 06/26/16 06/26/16 05:59 13:59 21:59 Output Total 1275 / 1275 700 / 700 Balance -1275 / -1275 -700 / -700 Intake & Output: Intake & Output 06/26/16 06/26/16 06/26/16 05:59 13:59 21:59 Output Total 1275 / 1275 700 / 700 Balance -1275 / -1275 -700 / -700 Output: Urine Catheter Amount 1275 / 1275 700 / 700 Exam: aoox0 drowsy, spontaneous movements, does not respond to commands RS air entry equal, irregular breathing pattern CVS - irregular heart rate. Medical - PN: Obj Da - Labs CBC & Chem 7: 06/24/16 04:30 06/24/16 04:30 Labs: Abnormal Lab Results 06/24/16 06/24/16 06/24/16 09:04 04:30 04:30 RBC 3.50 L Hgb 11.1 L Hct 34.4 L RDW 14.9 H Gran % 97.3 H Lymph % (Auto) 1.1 L Gran # 9.7 H Lymph # 0.1 L BUN 60 H Creatinine 2.4 H Glucose 121 H Uric Acid 12.1 H GGT 243 H AST 99 H ALT 80 H Alkaline Phosphatase 385 H Total Protein 5.4 L Albumin 2.4 L Albumin/Globulin Ratio 0.8 L Vancomycin Trough 18.1 H Meds: Medications Acetaminophen (Tylenol) 650 mg PO Q4-6HP PRN PRN Reason: PAIN/FEVER > 101 Al Hydrox/Mg Hydrox/Simethicone (Maalox) 30 ml PO Q4-6HP PRN PRN Reason: Dyspepsia Albuterol Sulfate (Ventolin) 2.5 mg NEB Q2HP PRN PRN Reason: Shortness Of Breath Bisacodyl (Dulcolax) 10 mg MT Q2-3DAYS PRN PRN Reason: Constipation Glucose Oxid/Lactoperoxid/Muramidas (Biotene) 1 each TOPICAL PRN PRN PRN Reason: Dry Mouth Lorazepam (Ativan) 1 mg PO Q1HP PRN PRN Reason: ANXIETY/SEDATION Last Admin: 06/26/16 16:43 Dose: 1 mg Morphine Sulfate (Morphine) 4 mg NEB Q4HP PRN PRN Reason: Shortness Of Breath Last Admin: 06/25/16 13:51 Dose: 4 mg Morphine Sulfate (Morphine) 2.5 - 5 mg PO Q2HP PRN PRN Reason: Dyspnea Last Admin: 06/26/16 14:58 Dose: 5 mg Ondansetron HCl (Zofran) 4 mg IV Q4-6HP PRN PRN Reason: Nausea And Vomiting Senna (Senokot) 2 tab PO HSP PRN PRN Reason: Constipation Trazodone HCl (Desyrel) 50 mg PO HSP PRN PRN Reason: Anxiety Medical - PN: A/P - Time Spent With Patient Total time spent is greater than 50% in coordination of care (as documented) at patient's floor/unit and/or counseling patient: (1) Septic shock Status: Acute Current Visit: Yes (2) Non-ST elevation myocardial infarction (NSTEMI), type 2 Status: Acute Current Visit: Yes (3) Chronic kidney disease (CKD) Status: Acute Current Visit: Yes (4) COPD with acute exacerbation Status: Acute Current Visit: Yes (5) Hypertension, essential Status: Chronic Current Visit: No (6) HCAP (healthcare-associated pneumonia) Status: Acute Current Visit: Yes - Narrative A/P Narrative: Patient in comfort c are no pain or anxiety reported by family Impending tonight / tomorrow. continue with supportive measures. Medical - PN: Qual - VTE Deep Vein Thrombosis/Pulmonary Embolism Present on Admission: Yes
[2016-06-27] MEDS: LORazepam 2 MG/ML ORAL.SOL PO PRN ×3 (01:12→04:51)
[2016-06-27] MEDS: morphine 20 MG/ML ORAL.CONC PO PRN (01:12)
--- NOTE | 2016-06-27 15:36 | Death Note ---
Discharge Sum: Prov - Provider Patient information: Note initiated : 06/27/16 at 3:33 pm Service Date, if different from initiated Date: [] Patient: Manas Nuñez 76 y/o M admitted on 06/20/16 for SOB, Low sats/ Septic Shock. Chief Complaint: [] Primary care physician: [f_Reg Prim Care Provider] Admitting clinician: [facility] [place] Consults: Wound care Discharge Sum: Diag - PCOD Cause of : Pneumonia Discharge Sum: Summary - Date and Time Date of admission: 06/20/16 23:25 Date of : 06/27/16 Time of : 04:55 - Summary Details: 06/20/16:history of present illness:Mr. Nuñez is a 76 year old male who presented to the ER from a ID after not feeling well/ weak x 2 days. The patient was hard of hearing, and unable to communicate well. 06/20: Pt admitted from ID after not feeling well x 2 days, noted to be hypoxic, hypotensive in septic shock, X ray shows etienne infiltrates at the bases. He was admitted to the hospital for management of septic shock secondary to HCAP pneumonia. He was placed on vasopressin drip, BIPAP, IV vanco and cefepime, zithromax. Pt also had elevated troponin on admission and ST changes which seem to be old. He likely has type 2 [place]. Right leg edema noted on exam, DVT scan pending. 06/21: Patient seen on bipap doing well this AM, saturating well on Fio2 40 percent. Not able to communicate well, but mental status is much better than last night. labs reviewed, trop repeat is 0.06, His WBC count improved from leucopenia to normal levels. His ABG reviwed, X ray done this AM shows worsening PNA, but clinically he is better. BP stable, will wean off pressors and bipap this AM and see how he does. Echo and Duplex lower extremities pending His breathing and air entry is much better this AM. Continue IV antibiotics Vanco/ Cefepime D2/ 7 today, Zithro D2/ 5 today. 06/22/16: overnight, the patient developed atrial fibrillation with rapid ventricular response. Over the course of the night he was given oral metoprolol XL, and 2 doses of IV metoprolol and 2 doses of IV digoxin. His heart rates were dipped for a while, and then bounced back up. He was also given IV fluids, as he was having frequent diarrhea, and there was concern about dehydration however, BNP sawyer quite a bit compared to admission, so now there is concern for possible volume overload. He has otherwise maintained fairly stable blood pressures and O2 saturation on oxygen via nasal cannula. He denies fever or chills,chest pain. He does have a moderate cough but does not complain a particular shortness of breath. He denies abdominal pain, nausea or vomiting He has been incontinent of urine since arrival, and Potter catheter was placed last night to help monitor fluid status. He does have a swollen right ankle which she has had since admission. 06/23/16: overnight the patient continued to have episodes of atrial fibrillation with rapid response. He was eventually placed on a diltiazem drip in addition to the oral metoprolol. He has some increased shortness of breath and agitation during the night, and was ultimately given Ativan and put back on BiPAP. Since then his heart rate has come down into the 60-90 range, and he appears to be in a flutter with variable block. he was quite somnolent this morning, presumably due to the Ativan he got during the night. Later in the morning he was more awake, but his speech was still quite thick, and he was difficult to understand. Nursing staff notes that his POA was here earlier today,and the patient told him that he is tired of all the treatment, and may want to not continue with aggressive treatment. otherwise, the patient is currently on oxygen at 3 L via nasal cannula, and is maintaining his O2 saturations at 96%. He seems to deny fever or chills. He seems to deny shortness of breath,but he does appear to be working a little harder to breathe. He has received several doses of Lasix over the last several days, and urine output is reasonable. Unfortunately, BUN/creatinine are slowly rising. the patient appears to deny chest pain or palpitations, abdominal pain, nausea or vomiting. He Continues to have occasional loose stools. I met with his POA later this afternoon,and he informed me that the patient today stated he was tired and just wanted to go home. However the patient is also still quite groggy from the Ativan he received during the night. 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 O2 saturations declined precipitously. he did not improve much with being placed back on the BiPAP mask and turning the FiO2 up, so I did speak with his POA who stated that he would prefer that we keep the patient comfortable, rather than pursue more aggressive testing and treatment. The patient was given IV morphine and IV Ativan, and she did calm down, and his O2 saturations eventually came back up to about 90%. this morning he is calm again,but still somewhat confused and sedated. His friend is here,and he told her several times that he just wants to go home. She believes that he means go to [facility], although he could also mean go back to his nursing facility. he was awake enough earlier to ask for breakfast, and did eat part of that. he is currently quite somnolent, and is unable to answer any questions for me. 06/25/16:Last evening, I did meet again with the patient's POA, and we all agreed that the patient seems to be requesting comfort care at this point. therefore all of his normal orders were discontinued, and comfort care orders were written. He has been awake for brief periods, but for the most part is fairly somnolent, and does not seem to have significant dyspnea at this time. his IV infiltrated, and his family did not want another IV started.oxygen levels are reassuring from high 80s to high 90s.heart rate is ranging from about 100-130. the patient does not wake upto speak with me during my exam today. His sister- in-law is sitting with him this morning. 06/26 Pt seen examined, family by bedside, pt non verbal, his vitals are borderline, low oxygen sats since AM, He does not appear to be in pain or distress. Patient is in comfort care. Impending . 06/27- Patient this AM was found to be having more difficulty in breathing, morphine provided by Nursing as needed. Patient was found non responsive with no HR and RR at 4.55 AM and pronounced . - Additional Data Confirmation of as documented by pronouncing clinician: no pulse, no respirations Family: not available Attending/PCP notified?: Yes Attending physician: [f_Reg Attending Provider] Was code activated?: No Autopsy requested?: No rate examiner notified?: No Organ bank notified?: Yes Advance directives?: Yes Hospice patient?: Yes
== END 2016-06-27 06:45 | disposition expired | DRG 871 ==
LOC: ED 18:21 → SUATTDRO 23:25 → ICU 23:25
PROVIDERS: ADMIT Internal Medicine; ATTEND Internal Medicine